=== PATIENT | male | born 1995 | race Caucasian/White ===

== ENCOUNTER 2017-12-14 17:11 | Emergency (ER) | payer OTHER ==
[~2017-12-14] VITALS: Ht 162.6 cm; Wt 79.4 kg
--- OUTSIDE RECORDS SUMMARY | 2017-12-14 17:17 | XMS REPORT ---
Author Author MARIO Cohen Organization [facility] Address [address] [address] Care Team Providers Care Driller Operator Name Role Phone MARIO Cohen Unavailable PROBLEMS Type Condition ICD9-CM Code OFS59-VT Code Onset Dates Condition Status SNOMED Code Problem ADD (attention deficit disorder) F90.0 Active 424478619 Problem Hypercholesterolemia with hyperglyceridemia E78.2 Active 319606490 Problem Schizoaffective disorder, bipolar type F25.0 Active 54369666 Problem Gastroesophageal reflux disease, esophagitis presence not specified K21.9 Active 461058015 Problem Social anxiety disorder F40.10 Active 57855122 Problem Bipolar disorder, current episode mixed, unspecified F31.60 Active 20517692 Problem Impulse disorder, unspecified F63.9 Active 87355046 Problem Attention deficit hyperactivity disorder (ADHD), predominantly inattentive type F90.0 Active 63901921 Problem Anxiety F41.9 Active 88798134 ALLERGIES Substance Reaction Event Type Date Status Lactose Unknown Drug Allergy May, Active Cipro hives Drug Allergy May, Active ENCOUNTERS Encounter Location Date Diagnosis [place] [id number] [place] [address] 15433- 5053 May, Gastroesophageal reflux disease, esophagitis presence not specified K21.9 [facility] [address] [place] [address] [id number] [place] [address] 00315- 7189 May, Schizoaffective disorder, bipolar type F25.0 [facility] [id number] [place] [address] 16547- 5855 May, Schizoaffective disorder, bipolar type F25.0 ; Impulse disorder, unspecified F63.9 ; Attention deficit hyperactivity disorder (ADHD), inattentive type, 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 and Social anxiety disorder F40.10 [facility] [address] [address] Feb, Schizoaffective disorder, bipolar type F25.0 ; Impulse disorder, unspecified F63.9 ; Attention deficit hyperactivity disorder (ADHD), inattentive type, mild F90.0 and Social anxiety disorder F40.10 [facility] [address] [address] Jan, Schizoaffective disorder, bipolar type F25.0 ; Impulse disorder, unspecified F63.9 ; Attention deficit hyperactivity disorder (ADHD), inattentive type, mild F90.0 and Social anxiety disorder F40.10 [facility] [id number] [place] [address] 90130- 1186 Jan, [facility] [id number] [place] [address] 37713- 9164 Dec, Schizoaffective disorder, bipolar type F25.0 [facility] [id number] [place] [address] 47691- 5082 Dec, Schizoaffective disorder, bipolar type F25.0 ; Impulse disorder, unspecified F63.9 ; Attention deficit hyperactivity disorder (ADHD), inattentive type, mild F90.0 and Social anxiety disorder F40.10 [facility] [address] [address] 78[address] Nov, Schizoaffective disorder, bipolar type F25.0 ; Impulse disorder, unspecified F63.9 ; Attention deficit hyperactivity disorder (ADHD), inattentive type, mild F90.0 and Social anxiety disorder F40.10 [facility] [address] [place] [address] 92974- 0139 Oct, [facility] [id number] [place] [address] 79676- 5457 08 Oct, 2016 Schizoaffective disorder, bipolar type F25.0 [facility] [address] [place] [address] 17429- 1755 Oct, 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 [facility] [address] [place] [address] 58864- 3773 Oct, Schizoaffective disorder, bipolar type F25.0 ; Impulse disorder, unspecified F63.9 ; Attention deficit hyperactivity disorder (ADHD), predominantly inattentive type F90.0 ; Anxiety F41.9 and Other jail ( current) drug therapy Z79.899 [facility] [id number] [place] [address] 41659- 8735 Sep, [facility] [id number] [place] [address] 12959- 9999 Jul, Hypercholesterolemia with hyperglyceridemia E78.2 [facility] [id number] [place] [address] 94434- 6076 Jul, Schizoaffective disorder, bipolar type F25.0 and Impulse disorder, unspecified F63.9 [facility] [id number] [place] [address] 45242- 1455 May, Hypercholesterolemia with hyperglyceridemia E78.2 ; Impulse disorder, unspecified F63.9 ; Bipolar disorder, current episode mixed, unspecified F31.60 ; Schizoaffective disorder, bipolar type F25.0 and ADD ( attention deficit disorder) F90.0 [facility] [address] [address]- 4866 Apr, [facility] [id number] [place] [address] 77771- 2471 Apr, [facility] [address], [place] [address]- 7381 Apr, Schizoaffective disorder, bipolar type F25.0 [facility] [address] [address]- 4462 Apr, [facility] [id number] [place] [address] 95045- 2737 Apr, [facility] [address] [address]- 9307 Apr, Schizoaffective disorder, bipolar type F25.0 [facility] [id number] [place] [address] 59817- 5661 Apr, Schizoaffective disorder, bipolar type F25.0 [facility] [id number] [place] [address] 00812- 6524 Dec, [facility] [id number] [place] [address] 94574- 2603 Dec, [facility] [id number] [place] [address] 94687- 0941 Dec, Schizoaffective disorder, bipolar type F25.0 and Other jail (current) drug therapy Z79.899 [facility] [id number] [place] [address] 31728- 6928 May, ADD (attention deficit disorder) F90.0 [facility] [id number] [place] [address] 86951- 6662 May, ADD (attention deficit disorder) F90.0 [facility] [id number] [place] [address] 65861- 8057 May, Schizoaffective disorder, bipolar type F25.0 and ADD ( attention deficit disorder) F90.0 [facility] [address] [address]- 4596 May, [facility] [address] [address]- 6926 Nov, [facility] [id number] [place] [address] 45173- 5595 Nov, Encounter for long-term (current) use of other medications Z79.899 [facility] [address] [address]- 9636 Nov, Schizoaffective disorder, bipolar type F25.0 ; Anxiety disorder, unspecified F41.9 ; Impulse disorder, unspecified F63.9 and Encounter for long-term (current) use of other medications Z79.899 [facility] [address] [address]- 3820 Sep, [facility] [address] [address]- 7206 Sep, [facility] [id number] [place] [address] 84510- 5519 Aug, [facility] [id number] [place] [address] 06275- 9237 Jul, [facility] [id number] [place] [address] 71186- 8625 June, [facility] [id number] [place] [address] 89414- 6247 May, [facility] [id number] [place] [address] 97722- 3348 May, [facility] [id number] [place] [address] 45280- 9048 Apr, [facility] [id number] [address]- 4179 Apr, [facility] [address], [place] [address]- 7396 Mar, [facility] [address] [address]- 7148 Mar, [facility] [address] [address]- 3690 Mar, [facility] [address] [address] 3380 Mar, [facility] [address] 7963 Mar, [facility] [place] [facility] [address] [id number] [place] [address]- 9823 Mar, [facility] [place] [facility] [address] [id number] [place] [address]- 2131 Feb, [facility] [place] [facility] [address] [id number] [place] [address]- 7050 Feb, [facility] [place] [facility] [address] [id number] [place] [address]- 7586 Feb, [facility] [place] [facility] [address] [id number] [place] [address]- 0073 Feb, [facility] [place] [facility] [address] [id number] [place] [address]- 1399 Jan, [facility] [place] [facility] [address] [id number] [place] 2140 Jan, [facility] [place] [facility] [address] [id number] [place] [address]- 6535 Jan, [facility] [place] [facility] [address] [id number] [place] [address]- 3508 Jan, [facility] [place] [facility] [address] [id number] [place] [address]- 5699 Jan, [facility] [place] [facility] [address] [id number] [place] 2277 Jan, [facility] [place] [facility] [address] [id number] [place] [address]- 7274 Dec, [facility] [place] [facility] [address] [id number] [place] [address]- 5420 Dec, [facility] [place] [facility] [address] [id number] [place] [address]- 3116 Dec, [facility] [place] [facility] [address] [id number] [place] [address]- 8097 Dec, [facility] [place] [facility] [address] [id number] [place] [address]- 6483 Nov, [facility] [place] [facility] [address] [id number] [place] [address]- 9467 Nov, [facility] [place] [facility] [address] [id number] [place] [address]- 4034 Nov, [facility] [place] [facility] [address] [id number] [place] [address]- 5458 Nov, [facility] [place] [facility] [address] [id number] [place] [address]- 7204 Nov, [facility] [place] [facility] [address] [id number] [place] [address]- 1575 Nov, [facility] [place] [facility] [address] [id number] [place] [address]- 2297 Nov, [facility] [place] [facility] [address] [id number] [place] [address]- 4257 Nov, [facility] [place] [facility] [address] [id number] [place] [address]- 1408 Oct, 2013 [facility] [place] [facility] [address] [id number] [place] [address]- 7151 Oct, [facility] [place] [facility] [address] [id number] [place] [address]- 4582 Oct, [facility] [place] [facility] [address] [id number], [place] [address]- 2158 Oct, [facility] [place] [facility] [address] [id number] [address]- 0920 Sep, [facility] [place] [facility] [address] [id number] [place] [address]- 5970 Sep, [facility] [place] [facility] [address] [id number], [place] [address]- 5511 Aug, [facility] [place] [facility] [address] [id number] [place] [address]- 5142 Aug, [facility] [place] [facility] [address] [id number] [place] [address]- 2584 Jul, [facility] [place] [facility] [address] [id number] [place] [address]- 3286 Jul, [facility] [place] [facility] [address] [id number] [place] [address]- 0607 Jul, [facility] [place] [facility] [address] [id number] [place] [address]- 2854 Jul, [facility] [place] [facility] [address] [id number] [place] [address]- 1651 Jul, [facility] [place] [facility] [address] [id number] [place] [address]- 5997 Jul, [facility] [place] [facility] [address] [id number] [place] [address]- 2447 Jul, [facility] [place] [facility] [address] [id number] [place] [address]- 0832 Jul, [facility] [place] [facility] [address] [id number] [place] [address]- 5787 June, [facility] [place] [facility] [address] [id number] [place] [address]- 9847 June, [facility] [place] [facility] [address] [id number] [place] [address]- 8974 May, [facility] [place] [facility] [address] [id number] [place] [address]- 4682 May, [facility] [place] [facility] [address] [id number] [place] [address]- 0678 May, [facility] [place] [facility] [address] [id number] [place] [address]- 0262 May, [facility] [place] [facility] [address] [id number] [place] [address]- 6453 May, [facility] [place] [facility] [address] [id number] [place] [address]- 7561 Apr, [facility] [place] [facility] [address] [id number] [place] [address]- 9784 Apr, [facility] [place] [facility] [address] [id number] [place] [address]- 2287 Mar, [facility] [place] [facility] [address] [id number] [place] [address]- 4115 Mar, [facility] [place] [facility] [address] [id number] [place] [address]- 2152 Feb, [facility] [place] [facility] [address] [id number] [place] [address]- 7078 Feb, [facility] [place] [facility] [address] [id number] [place] [address]- 2441 Jan, [facility] [place] [facility] [address] [id number] [place] [address]- 9508 Jan, [facility] [place] [facility] [address] [id number] [place] [address]- 1453 Jan, [facility] [place] [facility] [address] [id number] [place] [address]- 9858 Jan, [facility] [place] [facility] [address] [id number] [place] [address]- 0354 Jan, [facility] [place] [facility] [address] [facility] [id number] [place] [address]- 3001 Jan, [facility] [place] [facility] [address] [id number], [place] [address]- 6294 Jan, [facility] [place] [facility] [address] [id number] [place] [address]- 9672 Jan, [facility] [place] [facility] [address] [id number] [place] [address]- 1330 Jan, [facility] [place] [facility] [address] [id number], [place] [address]- 0119 18 Oct, 2012 [facility] [place] [facility] [address] [id number], [place] [address]- 7871 Jul, [facility] [address] [id number] [place] [address]- 7393 Jul, [facility] [address] [id number] [place] [address]- 1036 Jul, [facility] [address] [facility] [id number] [place] [address]- 9806 June, [facility] [address] [id number] [place] [address]- 3438 May, [facility] [address] [id number] [place] [address]- 5019 Apr, [facility] [address] [id number] [place] [address] 2546 Apr, [facility] [address] [facility] [id number] [place] [address]- 1400 Apr, [facility] [address] [facility] [id number] [place] [address]- 8553 Mar, [facility] [address] [facility] [id number] [place] [address]- 9376 Mar, [facility] [address] [facility] [id number] [place] [address]- 6376 Feb, [facility] [address] [facility] [id number] [place] [address]- 8814 Feb, [facility] [address] [id number] [place] [address]- 4736 Jan, [facility] [address] [id number] [place] [address]- 6486 Jan, [facility] [address] [facility] [id number] [place] [address] 2546 Jan, [facility] [address] [facility] [id number] [place] [address]- 7896 Jan, [facility] [place] [facility] [address] [id number] [place] [address]- 2058 Jan, [facility] [place] [facility] [address] [id number] [place] [address]- 0263 Dec, [facility] [place] [facility] [address] [id number] [place] [address]- 8870 Dec, [facility] [place] [facility] [address] [id number] [place] [address]- 4434 Nov, [facility] [place] [facility] [address] [id number] [place] [address]- 9810 Nov, [facility] [place] [facility] [address] [id number] [place] [address]- 9079 Nov, [facility] [place] [facility] [address] [id number] [place] [address]- 4315 Nov, [facility] [place] [facility] [address] [id number] [place] [address]- 2559 Nov, [facility] [place] [facility] [address] [id number] [place] 3928 Nov, [facility] [place] [facility] [address] [id number] [place] [address]- 4077 Oct, [facility] [place] [facility] [address] [id number] [place] [address]- 7991 Sep, [facility] [place] [facility] [address] [id number] [place] [address]- 5146 Sep, [facility] [place] [facility] [address] [id number] [place] [address]- 6050 Aug, [facility] [place] [facility] [address] [id number] [place] [address]- 5006 Aug, [facility] [place] [facility] [address] [id number] [place] [address]- 2546 Aug, [facility] [place] [facility] [address] [id number] [place] [address]- 2547 Jul, [facility] [address] [id number] [place] [address] 2546 June, [facility] [place] [facility] [address] [id number] [place] [address]- 7466 May, [facility] [place] [facility] [address] [id number] [place] [address]- 2546 May, [facility] [place] [facility] [address] [id number] [place] [address]- 2546 Apr, [facility] [place] [facility] [address] [id number] [place] [address]- 3394 Feb, [facility] [place] [facility] [address] [id number] [place] [address]- 4176 Feb, [facility] [place] [facility] [address] [id number] [place] [address]- 5306 26 Jan, 2011 [facility] [place] [facility] [address] [id number] [place] [address]- 0757 Jan, [facility] [place] [facility] [address] [id number] [place] [address]- 2575 19 Jan, 2011 [facility] [place] [facility] [address] [id number] [place] [address]- 5924 16 Jan, 2011 [facility] [place] [facility] [address] [id number], [place] [address]- 8146 16 Jan, 2011 [facility] [place] [facility] [address] [id number], [place] [address]- 2545 14 Jan, 2011 [facility] [place] [facility] [address] [id number] [place] [address]- 2546 14 Jan, 2011 [facility] [place] [facility] [address] [id number] [place] [address]- 2546 17 Dec, 2010 [facility] [place] [facility] [address] [id number] [place] [address]- 2546 17 Dec, 2010 [facility] [place] [facility] [address] [facility] [id number] [place] [address]30 Nov, [facility] [address] [facility] [id number] 3295 Jan, [facility] [address] [facility] [id number][place]- 8733 Dec, [facility] [address] [facility] [id number]- 6339 Dec, [facility] [address] [facility] [id number][place] 3977 Nov, IMMUNIZATIONS No Known Immunizations SOCIAL HISTORY Never Assessed REASON FOR VISIT acid reflux --tcstevepettSHAYY, Has had acid reflux for several years, but is worsening. Unable to eat anything without having a burning sensation and vomiting. PLAN OF CARE Activity Details Follow Up 3 Months Reason:gerd Pending Test STOOL (H. PYLORI) AG, EIA VITAL SIGNS Height 65 in 2017-06-11 Weight 208.0 lbs 2017-06-11 Temperature 98.3 degrees Fahrenheit 2017-06-11 Heart Rate 84 bpm 2017-06-11 Respiratory Rate 20 2017-06-11 BMI 34.61 kg/m2 2017-06-11 Blood pressure systolic 122 mmHg 2017-06-11 Blood pressure diastolic 80 mmHg 2017-06-11 MEDICATIONS Medication Instructions Dosage Frequency Start Date End Date Duration Status [place] Carbonate 300 MG Orally twice a day 2 capsules 12h Active Zoloft 50 mg Orally Once a day 1 tablet 24h Dec, Active [facility] Omeprazole 20 mg Orally twice a day 30 mins before food 1 tablet May, 30 day(s) Active Latuda 40 mg Orally at suppertime 1 tablet with food 90 days Active RESULTS No Results PROCEDURES Procedure Date Ordered Result Body Site HPYLORI, STOOL, EIA June 11, 2017 INSTRUCTIONS MEDICATIONS ADMINISTERED No Known Medications MEDICAL (GENERAL) HISTORY Type Description Date Medical History depression Medical History adhd Medical History bipolar Medical History hyperlipidemia Medical History Hx of heart valve dysfunction but says this has resolved Medical History lactose intolerant Hospitalization History [facility] x4, last incident at age 8
--- OUTSIDE RECORDS SUMMARY | 2017-12-14 17:18 | XMS REPORT ---
Author Author ALESHIA BERNAL [facility] Address [address] [place] [address] Care Team Providers Care [employer]oph[employer] Rep Name Role Phone ALESHIA BERNAL Unavailable PROBLEMS Type Condition ICD9-CM Code [id number] Code Onset Dates Condition Status SNOMED Code Problem Schizoaffective disorder, bipolar type F25.0 Active 18412855 Problem Anxiety F41.9 Active 39270104 Problem Attention deficit hyperactivity disorder (ADHD), predominantly inattentive type F90.0 Active 55003580 Problem Impulse disorder, unspecified F63.9 Active 99798291 Problem ADD (attention deficit disorder) F90.0 Active 589767025 Problem Hypercholesterolemia with hyperglyceridemia E78.2 Active 139666066 Problem Bipolar disorder, current episode mixed, unspecified F31.60 Active 36637707 ALLERGIES No Information SOCIAL HISTORY Never Assessed PLAN OF CARE VITAL SIGNS MEDICATIONS Unknown Medications RESULTS No Results PROCEDURES No Known procedures IMMUNIZATIONS No Known Immunizations MEDICAL (GENERAL) HISTORY Type Description Date Medical History depression Medical History adhd Medical History bipolar Medical History hyperlipidemia Medical History Hx of heart valve dysfunction but says this has resolved Hospitalization History [facility] x4, last incident at age 8
--- OUTSIDE RECORDS SUMMARY | 2017-12-14 17:18 | XMS REPORT ---
Author Author GRAY YFN [facility] Address [address] [place] [address] Care Team Providers Care Can Tender Name Role Phone GRAY, YFN Unavailable PROBLEMS Type Condition ICD9-CM Code HLF11-LE Code Onset Dates Condition Status SNOMED Code Problem ADD (attention deficit disorder) F90.0 Active 557320554 Problem Hypercholesterolemia with hyperglyceridemia E78.2 Active 764855844 Problem Schizoaffective disorder, bipolar type F25.0 Active 83323535 Problem Gastroesophageal reflux disease, esophagitis presence not specified K21.9 Active 575270831 Problem Social anxiety disorder F40.10 Active 10397595 Problem Bipolar disorder, current episode mixed, unspecified F31.60 Active 13406976 Problem Impulse disorder, unspecified F63.9 Active 65925090 Problem Attention deficit hyperactivity disorder (ADHD), predominantly inattentive type F90.0 Active 79155913 Problem Anxiety F41.9 Active 16135498 ALLERGIES Substance Reaction Event Type Date Status Lactose Unknown Drug Allergy May, Active Cipro hives Drug Allergy May, Active ENCOUNTERS Encounter Location Date Diagnosis [facility] [id number] [place] [address] 54945- 9744 May, Gastroesophageal reflux disease, esophagitis presence not specified K21.9 [facility] [id number] [place] [address] 94191- 3161 May, Schizoaffective disorder, bipolar type F25.0 [facility] [id number] [place] [address] 04946- 2218 May, Schizoaffective disorder, bipolar type F25.0 ; Impulse disorder, unspecified F63.9 ; Attention deficit hyperactivity disorder (ADHD), inattentive type, mild F90.0 and Social anxiety disorder F40.10 [facility] [id number], [place] [address]267 Feb, Schizoaffective disorder, bipolar type F25.0 ; Impulse disorder, unspecified F63.9 ; Attention deficit hyperactivity disorder (ADHD), inattentive type, mild F90.0 and Social anxiety disorder F40.10 [facility] [address] [place] [address] 39432- 9406 Jan, Schizoaffective disorder, bipolar type F25.0 ; Impulse disorder, unspecified F63.9 ; Attention deficit hyperactivity disorder (ADHD), inattentive type, mild F90.0 and Social anxiety disorder F40.10 [facility] [id number] [place] [address] 21217- 2223 Jan, [facility] [id number] [place] [address] 84255- 1128 Dec, Schizoaffective disorder, bipolar type F25.0 [facility] [id number] [place] [address] 97448- 8983 Dec, Schizoaffective disorder, bipolar type F25.0 ; Impulse disorder, unspecified F63.9 ; Attention deficit hyperactivity disorder (ADHD), inattentive type, mild F90.0 and Social anxiety disorder F40.10 [facility] [address], [place] [address] Nov, Schizoaffective disorder, bipolar type F25.0 ; Impulse disorder, unspecified F63.9 ; Attention deficit hyperactivity disorder (ADHD), inattentive type, mild F90.0 and Social anxiety disorder F40.10 [facility] [address] [address] 8314 Oct, [facility] [id number] [place] [address] 98138- 7095 Oct, Schizoaffective disorder, bipolar type F25.0 [facility] [address] [place] [address] 37129- 5318 Oct, Other [facility] (current) drug therapy Z79.899 [facility] [address] [place] [address] 35432- 3453 Oct, Schizoaffective disorder, bipolar type F25.0 ; Impulse disorder, unspecified F63.9 ; Attention deficit hyperactivity disorder (ADHD), predominantly inattentive type F90.0 ; Anxiety F41.9 and Other [facility] ( current) drug therapy Z79.899 [facility] [id number] [place] [address] 04873- 3738 Sep, [facility] [id number] [place] [address] 46745- 5907 Jul, Hypercholesterolemia with hyperglyceridemia E78.2 [facility] [id number] [place] [address] 01865- 9674 Jul, Schizoaffective disorder, bipolar type F25.0 and Impulse disorder, unspecified F63.9 [facility] [id number] [place] [address] 43208- 1725 May, Hypercholesterolemia with hyperglyceridemia E78.2 ; Impulse disorder, unspecified F63.9 ; Bipolar disorder, current episode mixed, unspecified F31.60 ; Schizoaffective disorder, bipolar type F25.0 and ADD ( attention deficit disorder) F90.0 [facility] [address] [address]- 0730 Apr, [facility] [id number] [place] [address] 18280- 9701 Apr, [facility] [id number] [place] [address] 53904- 6088 Apr, Schizoaffective disorder, bipolar type F25.0 [facility] [id number] [place] [address] 38463- 2341 Apr, [facility] [id number] [place] [address] 39645- 3221 Apr, [facility] [id number], [place] [address]- 5497 Apr, Schizoaffective disorder, bipolar type F25.0 [facility] [id number] [place] [address] 76555- 2035 Apr, Schizoaffective disorder, bipolar type F25.0 [facility] [address] [address]- 2740 Dec, [facility] [id number] [place] [address] 99571- 1500 Dec, [facility] [address] [place] [address] 26632- 8358 Dec, Schizoaffective disorder, bipolar type F25.0 and Other [facility] (current) drug therapy Z79.899 [facility] [id number] [place] [address] 44189- 9464 May, ADD (attention deficit disorder) F90.0 [facility] [id number] [place] [address] 12623- 9584 May, ADD (attention deficit disorder) F90.0 [facility] [id number] [place] [address] 35295- 1665 May, Schizoaffective disorder, bipolar type F25.0 and ADD ( attention deficit disorder) F90.0 [facility] [address] [address]- 5368 May, [facility] [address] [address]- 2590 Nov, [facility] [id number] [place] [address] 43533- 4137 Nov, Encounter for long-term (current) use of other medications Z79.899 [facility] [address] [address]- 0162 Nov, Schizoaffective disorder, bipolar type F25.0 ; Anxiety disorder, unspecified F41.9 ; Impulse disorder, unspecified F63.9 and Encounter for long-term (current) use of other medications Z79.899 [facility] [id number] [place] [address] 02325- 8565 Sep, [facility] [id number] [place] [address] 93365- 7601 Sep, [facility] [id number] [place] [address] 09894- 8944 Aug, [facility] [id number] [place] [address] 49922- 6371 Jul, [facility] [id number] [place] [address] 03329- 1410 June, [facility] [id number] [place] [address] 80618- 4046 May, [facility] [id number] [place] [address] 52345- 8339 May, [facility] [id number] [place] [address] 97320- 7414 Apr, [facility] [address] [place] [address] 42658- 5023 Apr, [facility] [address] [place] [address] 11046- 3283 Mar, [facility] [address] [place] [address] 10570- 9987 Mar, [facility] [address], [place] [address]- 4736 Mar, [facility] [id number], [place] [address]- 7518 Mar, [facility] [address], [place] [address]- 9623 Mar, [facility] [id number] [place] [address] 29470- 8885 Mar, [facility] [address] [id number] [place] [address]- 3615 Feb, [facility] [place] [facility] [address] [id number] [place] [address]- 5813 Feb, [facility] [place] [facility] [address] [facility] [id number] [place] [address]- 6782 Feb, [facility] [place] [facility] [address] [id number] [place] [address]- 9101 Feb, [facility] [place] [facility] [address] [id number] [place] 8788 Jan, [facility] [place] [facility] [address] [id number] [place] [address]- 6566 Jan, [facility] [place] [facility] [address] [facility] [id number] [place] [address]- 7618 Jan, [facility] [place] [facility] [address] [facility] [id number] [place] [address]- 9942 Jan, [facility] [place] [facility] [id number] [place] [address]- 4322 Jan, [facility] [place] [facility] [address] [facility] [id number] [place] [address]- 0023 Jan, [facility] [place] [facility] [address] [id number] [place] [address]- 3884 Dec, [facility] [place] [facility] [address] [id number] [address]- 1563 Dec, [facility] [place] [facility] [address] [id number] [place] [address]- 7366 Dec, [facility] [place] [facility] [address] [facility] [id number] [place] [address]- 1165 Dec, [facility] [place] [facility] [address] [facility] [id number] [place] [address]- 9907 Nov, [facility] [place] [facility] [address] [id number] [place] [address]- 8530 Nov, [facility] [place] [facility] [address] [id number] [place] 5325 Nov, [facility] [place] [facility] [address] [id number] [place] 6257 Nov, 2013 [facility] [place] [facility] [address] [id number] [place] [address]- 6571 Nov, [facility] [place] [facility] [address] [id number] [place] [address]- 2703 Nov, [facility] [place] [facility] [address] [id number] [place] [address]- 0226 Nov, [facility] [place] [facility] [address] [id number] [place] 0433 Nov, [facility] [place] [facility] [address] [id number] [place] [address]- 3123 Oct, 2013 [facility] [place] [facility] [address] [id number] [place] [address]- 6321 Oct, 2013 [facility] [place] [facility] [address] [id number] [place] [address]- 3683 Oct, 2013 [facility] [place] [facility] [address] [id number] [place] [address]- 3590 Oct, 2013 [facility] [place] [facility] [address] [id number] [place] [address]- 9582 Sep, [facility] [place] [facility] [address] [id number] [place] [address]- 8804 Sep, [facility] [place] [facility] [address] [id number] [place] [address]- 3701 Aug, [facility] [place] [facility] [address] [id number] [place] [address]- 0801 Aug, [facility] [place] [facility] [address] [id number] [place] [address]- 7061 Jul, [facility] [place] [facility] [address] [id number] [place] [address]- 9599 Jul, [facility] [place] [facility] [address] [id number] [place] [address]- 9055 Jul, [facility] [place] [facility] [address] [id number] [place] [address]- 9616 Jul, [facility] [place] [facility] [address] [id number] [place] [address]- 6600 Jul, [facility] [place] [facility] [address] [id number] [place] [address]- 9238 Jul, [facility] [place] [facility] [address] [id number] [place] [address]- 0826 Jul, [facility] [place] [facility] [address] [id number] [place] [address]- 0646 Jul, [facility] [place] [facility] [address] [id number] [place] [address]- 2149 June, [facility] [place] [facility] [address] [id number] [place] [address]- 7000 June, [facility] [place] [facility] [address] [id number] [place] [address]- 3916 May, [facility] [place] [facility] [address] [id number], [place] [address]- 8169 May, [facility] [place] [facility] [address] [id number], [place] [address]- 1520 May, [facility] [place] [facility] [address] [id number] [place] [address]- 7426 May, [facility] [place] [facility] [address] [id number] [place] [address]- 6235 May, [facility] [place] [facility] [address] [id number] [place] [address]- 9614 Apr, [facility] [place] [facility] [address] [id number] [place] [address]- 9874 Apr, [facility] [address] [id number] [place] [address]- 2636 Mar, [facility] [address] [id number] [place] [address]- 2976 Mar, [facility] [address] [id number] [place] [address]- 0653 Feb, [facility] [address] [id number] [place] [address]- 3604 Feb, [facility] [address] [id number] [place] [address]- 5002 Jan, [facility] [address] [id number] [place] [address]- 1867 Jan, [facility] [address] [id number] [place] [address]- 7455 Jan, [facility] [address] [id number] [place] [address]- 2428 Jan, [facility] [address] [facility] [id number] [place] [address]- 7936 Jan, [facility] [address] [facility] [id number] [place] [address]- 4807 Jan, [facility] [address] [id number] [place] [address]- 6454 Jan, [facility] [address] [id number] [place] [address]- 4066 Jan, [facility] [place] [facility] [address] [id number] [place] [address]- 3528 Jan, [facility] [address] [id number] [place] [address]- 2546 18 Oct, 2012 [facility] [address] [id number] [place] [address]- 8867 Jul, [facility] [address] [id number] [place] [address]- 9106 Jul, [facility] [place] [facility] [address] [id number] [place] [address]- 3056 Jul, [facility] [place] [facility] [address] [id number] [place] [address]- 9366 June, [facility] [place] [facility] [address] [id number] [place] [address]- 2546 May, [facility] [address] [id number] [place] [address]- 3966 Apr, [facility] [place] [facility] [address] [id number] [place] [address]- 8636 Apr, [facility] [address] [id number] [place] [address]- 2546 Apr, [facility] [address] [id number] [place] [address]- 8766 Mar, [facility] [place] [facility] [address] [id number] [place] [address]- 7136 Mar, [facility] [address] [facility] [id number] [place] [address]- 3886 Feb, [facility] [place] [facility] [address] [id number] [place] [address]- 2546 Feb, [facility] [place] [facility] [address] [id number], [place] [address]- 4676 Jan, [facility] [place] [facility] [address] [id number] [place] [address]- 8236 Jan, [facility] [place] [facility] [address] [id number] [place] [address]- 3136 Jan, [facility] [place] [facility] [address] [id number] [place] [address]- 2546 Jan, [facility] [place] [facility] [address] [id number] [place] [address]- 0366 Jan, [facility] [place] [facility] [address] [id number] [place] [address]- 6009 Dec, [facility] [place] [facility] [address] [id number] [place] [address]- 8023 Dec, [facility] [place] [facility] [address] [id number] [place] [address]- 2140 Nov, [facility] [place] [facility] [address] [id number] [place] [address]- 9499 Nov, [facility] [place] [facility] [address] [id number] [place] [address]- 4806 Nov, [facility] [place] [facility] [address] [id number] [place] [address]- 5140 Nov, [facility] [place] [facility] [address] [id number] [place] [address]- 4390 Nov, [facility] [place] [facility] [address] [id number] [place] [address]- 1773 Nov, [facility] [place] [facility] [address] [id number] [place] [address]- 2797 Oct, [facility] [place] [facility] [address] [id number] [place] [address]- 7256 Sep, [facility] [place] [facility] [address] [id number] [place] [address]- 6146 Sep, [facility] [place] [facility] [address] [id number] [place] [address]- 9038 Aug, [facility] [place] [facility] [address] [id number] [place] [address]- 9489 Aug, [facility] [place] [facility] [address] [id number] [place] [address]- 8665 Aug, [facility] [place] [facility] [address] [facility] [id number] [place] [address]- 7383 Jul, [facility] [place] [facility] [address] [id number] [place] [address]- 1940 June, [facility] [place] [facility] [address] [id number] [place] [address]- 8068 27 May, 2011 [facility] [place] [facility] [address] [id number] [place] [address]- 7086 May, [facility] [place] [facility] [address] [id number] [place] [address]- 6235 Apr, [facility] [place] [facility] [address] [id number] [place] [address]- 7112 31 Feb, 2011 [facility] [place] [facility] [address] [id number] [place] [address]- 2549 Feb, [facility] [place] [facility] [address] [id number] [place] [address]- 7668 26 Jan, 2011 [facility] [place] [facility] [address] [id number] [place] [address]- 6265 21 Jan, 2011 [facility] [place] [facility] [address] [id number] [place] [address]- 7348 19 Jan, 2011 [facility] [place] [facility] [address] [id number] [place] [address]- 2379 16 Jan, 2011 [facility] [place] [facility] [address] [id number] [place] 0109 16 Jan, 2011 [facility] [place] [facility] [address] [id number] [place] [address]- 3751 14 Jan, 2011 [facility] [place] [facility] [address] [id number] [place] [address]- 5146 14 Jan, 2011 [facility] [place] [facility] [address] [id number] [place] [address]- 0000 17 Dec, 2010 [facility] [place] [facility] [address] [id number] [place] [address]- 6616 17 Dec, 2010 [facility] [place] [facility] [address] [id number] [place] [address]- 5757 Nov, [facility] [address] [facility] [id number] [place] [address]- 0390 Jan, [facility] [address] [facility] [id number], [place] [address]- 5676 Dec, [facility] [address] [facility] [id number], [place] [address]- 7368 Dec, [facility] [address] [facility] [id number], [place] [address]- 1022 Nov, IMMUNIZATIONS No Known Immunizations SOCIAL HISTORY Never Assessed REASON FOR VISIT f/u wb-ma PLAN OF CARE Activity Details Follow Up 3 Months Reason: f/u VITAL SIGNS Height 65 in 2017-06-03 Weight 205 lbs 2017-06-03 Heart Rate 74 bpm 2017-06-03 Respiratory Rate 18 2017-06-03 BMI 34.11 kg/m2 2017-06-03 Blood pressure systolic 118 mmHg 2017-06-03 Blood pressure diastolic 78 mmHg 2017-06-03 MEDICATIONS Medication Instructions Dosage Frequency Start Date End Date Duration Status [place] Carbonate 300 MG Orally twice a day 2 capsules 12h Active Latuda 40 mg Orally at suppertime 1 tablet with food Active Zoloft 50 mg Orally Once a day 1 tablet 24h Dec, Active RESULTS No Results PROCEDURES No Known procedures INSTRUCTIONS MEDICATIONS ADMINISTERED No Known Medications MEDICAL (GENERAL) HISTORY Type Description Date Medical History depression Medical History adhd Medical History bipolar Medical History hyperlipidemia Medical History Hx of heart valve dysfunction but says this has resolved Medical History lactose intolerant Hospitalization History [facility] x4, last incident at age 8
--- OUTSIDE RECORDS SUMMARY | 2017-12-14 17:18 | XMS REPORT ---
Author Author BHAVANA DAWSON [facility] Address [address] [place] [address] Care Team Providers Care Anesthesiology Resident Name Role Phone DAWSON BATEMAN Unavailable PROBLEMS Type Condition ICD9-CM Code [id number] Code Onset Dates Condition Status SNOMED Code Problem Schizoaffective disorder, bipolar type F25.0 Active 98150143 Problem ADD (attention deficit disorder) F90.0 Active 516934975 Problem Social anxiety disorder F40.10 Active 01148080 Problem Attention deficit hyperactivity disorder (ADHD), predominantly inattentive type F90.0 Active 34639061 Problem Impulse disorder, unspecified F63.9 Active 50343451 Problem Hypercholesterolemia with hyperglyceridemia E78.2 Active 902464745 Problem Anxiety F41.9 Active 46531263 Problem Bipolar disorder, current episode mixed, unspecified F31.60 Active 11279807 ALLERGIES No Information SOCIAL HISTORY Never Assessed PLAN OF CARE VITAL SIGNS MEDICATIONS Unknown Medications RESULTS Name Result Date Reference Range CBC 2016-07-16 WBC 5.3 3.4-10.8 RBC 5.17 4.14-5.80 Hemoglobin 15.0 12.6-17.7 Hematocrit 44.9 37.5-51.0 MCV 87 79-97 MCH 29.0 26.6-33.0 MCHC 33.4 31.5-35.7 RDW 13.2 12.3-15.4 Platelets 245 150-379 Neutrophils 62 Lymphs 27 Monocytes 9 Eos 2 Basos 0 Immature Cells Neutrophils (Absolute) 3.3 1.4-7.0 Lymphs (Absolute) 1.4 0.7-3.1 Monocytes(Absolute) 0.5 0.1-0.9 Eos (Absolute) 0.1 0.0-0.4 Baso (Absolute) 0.0 0.0-0.2 Immature Granulocytes 0 Immature Grans (Abs) 0.0 0.0-0.1 NRBC Hematology Comments: LIPID PANEL 2016-07-16 Cholesterol, Total 194 100-199 Triglycerides 154 0-149 HDL Cholesterol 39 >39 VLDL Cholesterol Kush 31 5-40 LDL Cholesterol Calc 124 0-99 CMP 2016-07-16 Glucose, Serum 89 65-99 BUN 16 6-20 Creatinine, Serum 0.86 0.76-1.27 eGFR If NonAfricn Am 122 >59 eGFR If Africn Am 141 >59 BUN/Creatinine Ratio 19 9-20 Sodium, Serum 141 134-144 Potassium, Serum 4.7 3.5-5.2 Chloride, Serum 103 96-106 Carbon Dioxide, Total 24 18-29 Calcium, Serum 9.7 8.7-10.2 Protein, Total, Serum 6.9 6.0-8.5 Albumin, Serum 4.6 3.5-5.5 Globulin, Total 2.3 1.5-4.5 A/G Ratio 2.0 1.2-2.2 Bilirubin, Total 0.3 0.0-1.2 Alkaline Phosphatase, S 85 39-117 AST (SGOT) 22 0-40 ALT (SGPT) 21 0-44 PROCEDURES Procedure Date Ordered Result Body Site COMPLETE CBC W/AUTO DIFF WBC July 16, 2016 LIPID PANEL July 16, 2016 VENIPUNCT, ROUTINE* July 16, 2016 COMPREHEN METABOLIC PANEL July 16, 2016 IMMUNIZATIONS No Known Immunizations MEDICAL (GENERAL) HISTORY Type Description Date Medical History depression Medical History adhd Medical History bipolar Medical History hyperlipidemia Medical History Hx of heart valve dysfunction but says this has resolved Medical History lactose intolerant Hospitalization History [facility] x4, last incident at age 8
--- OUTSIDE RECORDS SUMMARY | 2017-12-14 17:18 | XMS REPORT ---
Author CHIN [facility] eClinicalWorks Address Unknown Phone Unavailable Care Team Providers Care Vaccine Key Customer Leader Name Role Phone CHIN CALZADA CP Unavailable Allergies, Adverse Reactions, Alerts Substance Reaction Event Type Cipro hives Drug Allergy Problems Problem Type Condition Code Onset Dates Condition Status Assessment Encounter for long-term (current) use of other medications Z79.899 Active Assessment Anxiety disorder, unspecified F41.9 Active Assessment Impulse disorder, unspecified F63.9 Active Problem Anxiety state, unspecified 300.00 Active Problem Unspecified psychosis 298.9 Active Problem Schizoaffective disorder, unspecified 295.70 Active Problem Bipolar I disorder, most recent episode (or current) mixed, unspecified 296.60 Active Assessment Schizoaffective disorder, bipolar type F25.0 Active Problem Impulse control disorder, unspecified 312.30 Active Problem Other dysfunctions of sleep stages or arousal from sleep 307.47 Active Medications Medication Code System Code Instructions Start Date End Date Status Dosage Vyvanse [facility] [address]-27 30 MG Orally Once a day qAM for ADHD Take for 30 days then start Vyvanse 40 mg June 26, 2014 1 capsule Rulo Carbonate [facility] [address]-19 300 MG Orally Once a day with dinner 3 capsules Seroquel XR [facility] [address]-70 200 MG Orally Once a day Nov 21, 2014 1 tablet in the evening Abilify [facility] [address]-13 10 MG Orally Once a day Apr 13, 2014 1 Tablet Procedures Procedure Coding System Code Date Office Visit, Est Pt., Level 4 CPT-4 80434 Nov 21, 2014 Vital Signs Date/Time: Nov 21, 2014 Temperature 98.6 F Weight 196.2 lbs Height 64 in BMI 33.67 Index Blood Pressure Diastolic 80 mmHg Blood Pressure Systolic 120 mmHg Cardiac Monitoring Heart Rate 64 bpm Results No Known Results Summary Purpose eClinicalWorks Submission
--- OUTSIDE RECORDS SUMMARY | 2017-12-14 17:18 | XMS REPORT ---
Author Author YFN CASTELLANO [facility] Address [address] [place] [address] Care Team Providers Care Supervisor Painting Department Name Role Phone GRAYYFN Unavailable PROBLEMS Type Condition ICD9-CM Code MIN70-DF Code Onset Dates Condition Status SNOMED Code Problem ADD (attention deficit disorder) F90.0 Active 390213390 Problem Hypercholesterolemia with hyperglyceridemia E78.2 Active 518754562 Problem Schizoaffective disorder, bipolar type F25.0 Active 67596165 Problem Gastroesophageal reflux disease, esophagitis presence not specified K21.9 Active 925766379 Problem Social anxiety disorder F40.10 Active 11772083 Problem Bipolar disorder, current episode mixed, unspecified F31.60 Active 00167765 Problem Impulse disorder, unspecified F63.9 Active 63777197 Problem Attention deficit hyperactivity disorder (ADHD), predominantly inattentive type F90.0 Active 84976107 Problem Anxiety F41.9 Active 36431498 ALLERGIES No Information ENCOUNTERS Encounter Location Date Diagnosis [facility] [id number] [place] [address]205- [address]123 May, Gastroesophageal reflux disease, esophagitis presence not specified K21.9 [facility] [address] [place] [address]6360- 2511 May, Schizoaffective disorder, bipolar type F25.0 [facility] [address] [place] [address] 08592- 1403 May, Schizoaffective disorder, bipolar type F25.0 ; Impulse disorder, unspecified F63.9 ; Attention deficit hyperactivity disorder (ADHD), inattentive type, 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 and Social anxiety disorder F40.10 [facility] [address] [place] [address] 97520- 8982 Feb, Schizoaffective disorder, bipolar type F25.0 ; Impulse disorder, unspecified F63.9 ; Attention deficit hyperactivity disorder (ADHD), inattentive type, mild F90.0 and Social anxiety disorder F40.10 [facility] [id number] [place] [address] 82203- 3660 Jan, Schizoaffective disorder, bipolar type F25.0 ; Impulse disorder, unspecified F63.9 ; Attention deficit hyperactivity disorder (ADHD), inattentive type, mild F90.0 and Social anxiety disorder F40.10 [place] [id number] [place] [address] 85097- 5296 Jan, [facility] [id number] [place] [address] 96679- 0133 Dec, Schizoaffective disorder, bipolar type F25.0 [place] [id number] [place] [address] 52752- 6117 Dec, Schizoaffective disorder, bipolar type F25.0 ; Impulse disorder, unspecified F63.9 ; Attention deficit hyperactivity disorder (ADHD), inattentive type, mild F90.0 and Social anxiety disorder F40.10 [place] [address] [address] Nov, Schizoaffective disorder, bipolar type F25.0 ; Impulse disorder, unspecified F63.9 ; Attention deficit hyperactivity disorder (ADHD), inattentive type, mild F90.0 and Social anxiety disorder F40.10 [facility] [address] [address] 69[address] Oct, [facility] [address] [place] [address] 93178- 0993 Oct, Schizoaffective disorder, bipolar type F25.0 [facility] [address] [place] [address] 22138- 9309 07 Oct, 2016 Other supervisor long goods (current) drug therapy Z79.899 [place] [id number] [place] [address] 69720- 6813 Oct, Schizoaffective disorder, bipolar type F25.0 ; Impulse disorder, unspecified F63.9 ; Attention deficit hyperactivity disorder (ADHD), predominantly inattentive type F90.0 ; Anxiety F41.9 and Other halfway ( current) drug therapy Z79.899 [facility] [id number] [place] [address] 26543- 3028 Sep, [facility] [id number] [place] [address] 14646- 5318 Jul, Hypercholesterolemia with hyperglyceridemia E78.2 [place] [id number] [place] [address] 34129- 6807 Jul, Schizoaffective disorder, bipolar type F25.0 and Impulse disorder, unspecified F63.9 [facility] [id number] [place] [address] 47345- 4150 May, Hypercholesterolemia with hyperglyceridemia E78.2 ; Impulse disorder, unspecified F63.9 ; Bipolar disorder, current episode mixed, unspecified F31.60 ; Schizoaffective disorder, bipolar type F25.0 and ADD ( attention deficit disorder) F90.0 [place] [address] [place] [address] 10477- 0092 Apr, [facility] [id number] [place] [address] 88341- 3340 Apr, [facility] [id number] [place] [address] 02154- 3321 Apr, Schizoaffective disorder, bipolar type F25.0 [facility] [id number] [place] [address] 50300- 5487 Apr, [facility] [id number] [place] [address] 44651- 3879 Apr, [facility] [id number] [place] [address] 44279- 9398 Apr, Schizoaffective disorder, bipolar type F25.0 [facility] [address] [address]- 0507 Apr, Schizoaffective disorder, bipolar type F25.0 [facility] [address] [address]- 9377 Dec, [facility] [id number] [place] [address] 50183- 3599 Dec, [facility] [id number] [place] [address] 38813- 4515 Dec, Schizoaffective disorder, bipolar type F25.0 and Other halfway (current) drug therapy Z79.899 [facility] [id number] [place] [address] 07420- 5703 May, ADD (attention deficit disorder) F90.0 [facility] [id number] [place] [address] 46525- 4459 May, ADD (attention deficit disorder) F90.0 [facility] [address] [place] [address] 04080- 6163 May, Schizoaffective disorder, bipolar type F25.0 and ADD ( attention deficit disorder) F90.0 [facility] [address] [address]- 5865 May, [facility] [address] [address]- 4734 Nov, [facility] [address] [address]- 5333 Nov, Encounter for long-term (current) use of other medications Z79.899 [facility] [address] [place] [address] 85291- 5622 Nov, Schizoaffective disorder, bipolar type F25.0 ; Anxiety disorder, unspecified F41.9 ; Impulse disorder, unspecified F63.9 and Encounter for long-term (current) use of other medications Z79.899 [facility] [address] [id number] [place] [address]- 1513 Sep, [facility] [place] [facility] [address] [id number] [place] [address]- 5655 Sep, [facility] [place] [facility] [address] [facility] [id number] [place] [address]- 2808 Aug, [facility] [place] [facility] [address] [id number] [address]- 7874 Jul, [facility] [place] [facility] [address] [id number] [place] [address]- 5898 June, [facility] [place] [facility] [address] [id number], [place] [address]- 3539 May, [facility] [place] [facility] [address] [place] [address]- 6879 May, [facility] [place] [facility] [id number] [address]- 7982 Apr, [facility] [place] [facility] [id number] [address]- 0877 Apr, [facility] [place] [facility] [id number] [address]- 4708 Mar, [facility] [place] [facility] [id number] [address]- 9850 Mar, [facility] [place] [facility] [address] [facility] [id number], [place] [address]- 7245 Mar, [facility] [place] [facility] [address] [id number], [place] [address]- 9345 Mar, [facility] [place] [facility] [address] [facility] [id number], [place] [address]- 4613 Mar, [facility] [place] [facility] [address] [facility] [id number], [place] [address]- 2510 Mar, [facility] [place] [facility] [address] [id number] [place] [address]- 6225 Feb, [facility] [address] [id number] [place] [address]- 8426 Feb, [facility] [place] [facility] [address] [id number] [place] [address]- 0479 Feb, [facility] [address] [id number] [place] [address]- 6121 Feb, [facility] [place] [facility] [address] [id number] [place] [address]- 3488 Jan, [facility] [address] [id number] [place] [address]- 6195 Jan, [facility] [place] [facility] [address] [id number] [place] [address]- 9622 Jan, [facility] [place] [facility] [address] [id number] [place] [address]- 9862 Jan, [facility] [address] [id number] [place] [address]- 7636 Jan, [facility] [place] [facility] [address] [id number] [place] [address]- 1224 Jan, [facility] [address] [id number] [place] [address]- 5333 Dec, [facility] [place] [facility] [address] [id number] [place] [address]- 3963 Dec, [facility] [place] [facility] [address] [id number] [place] [address]- 6475 Dec, [facility] [place] [facility] [address] [id number] [place] [address]- 4018 Dec, [facility] [place] [facility] [address] [id number] [place] [address]- 4208 Nov, [facility] [place] [facility] [address] [id number] [place] [address]- 0038 Nov, [facility] [place] [facility] [address] [id number] [place] [address]- 4458 Nov, [facility] [place] [facility] [address] [id number] [place] [address]- 0307 Nov, [facility] [place] [facility] [address] [id number] [place] 8072 Nov, [facility] [place] [facility] [address] [id number] [place] [address]- 8701 Nov, [facility] [place] [facility] [address] [id number] [place] [address]- 8658 Nov, [facility] [place] [facility] [address] [id number] [place] [address]- 0985 Nov, [facility] [place] [facility] [address] [id number] [place] [address]- 7657 Oct, [facility] [place] [facility] [address] [id number] [place] [address]- 5425 Oct, [facility] [place] [facility] [address] [id number] [place] [address]- 1563 Oct, [facility] [place] [facility] [address] [id number] [place] [address]- 2206 Oct, [facility] [place] [facility] [address] [id number] [place] [address]- 8412 Sep, [facility] [place] [facility] [address] [id number], [place] [address]- 7225 Sep, [facility] [place] [facility] [address] [id number] [place] [address]- 3791 Aug, [facility] [place] [facility] [address] [id number] [place] [address]- 5664 Aug, [facility] [place] [facility] [address] [id number] [place] [address]- 0825 Jul, [facility] [place] [facility] [address] [id number] [place] [address]- 4395 Jul, [facility] [place] [facility] [address] [id number] [place] [address]- 3247 Jul, [facility] [place] [facility] [address] [id number] [place] [address]- 7126 Jul, [facility] [place] [facility] [address] [id number] [place] [address]- 5390 Jul, [facility] [place] [facility] [address] [id number] [place] [address]- 7475 Jul, [facility] [place] [facility] [address] [id number] [place] [address]- 0613 Jul, [facility] [place] [facility] [address] [id number] [place] [address]- 8569 Jul, [facility] [place] [facility] [address] [id number] [place] [address]- 6966 June, [facility] [place] [facility] [address] [id number] [place] [address]- 8979 June, [facility] [place] [facility] [address] [id number] [place] [address]- 2725 May, [facility] [place] [facility] [address] [id number] [place] [address]- 5073 May, [facility] [place] [facility] [address] [id number] [place] [address]- 7038 May, [facility] [place] [facility] [address] [id number] [place] [address]- 0124 May, [facility] [place] [facility] [address] [id number] [place] [address]- 6925 May, [facility] [place] [facility] [address] [id number] [place] [address]- 8651 Apr, [facility] [place] [facility] [address] [id number] [place] [address]- 9280 Apr, [facility] [place] [facility] [address] [id number] [place] [address]- 0403 Mar, [facility] [address] [id number] [place] [address]- 7836 Mar, [facility] [place] [facility] [address] [id number] [place] [address]- 1304 Feb, [facility] [place] [facility] [address] [id number] [place] [address]- 6889 Feb, [facility] [place] [facility] [address] [id number] [place] [address]- 5660 Jan, [facility] [place] [facility] [address] [id number] [place] [address]- 6867 Jan, [facility] [address] [facility] [id number] [place] [address]- 2389 Jan, [facility] [place] [facility] [address] [id number] [place] [address]- 1707 Jan, [facility] [address] [id number] [place] [address]- 5615 Jan, [facility] [place] [facility] [address] [id number] [place] [address]- 9620 Jan, [facility] [place] [facility] [address] [id number] [place] [address]- 5656 Jan, [facility] [place] [facility] [address] [id number] [place] [address]- 2821 Jan, [facility] [place] [facility] [address] [id number] [place] [address]- 7793 Jan, [facility] [place] [facility] [address] [id number] [place] [address]- 9866 Oct, [facility] [place] [facility] [address] [id number] [place] [address]- 0846 Jul, [facility] [place] [facility] [address] [id number], [place] [address]- 0156 Jul, [facility] [address] [id number] [place] [address]- 5924 Jul, [facility] [address] [id number] [place] [address] 2546 June, [facility] [address] [id number] [place] [address] 2546 May, [facility] [place] [facility] [address] [id number], [place] [address] 2546 Apr, [facility] [address] [id number] [place] [address]- 9617 Apr, [facility] [address] [id number] [place] [address] 2546 Apr, [facility] [address] [id number] [place] [address]- 6366 Mar, [facility] [place] [facility] [address] [id number], [place] [address]- 4663 Mar, [facility] [address] [id number], [place] [address]- 6432 Feb, [facility] [address] [id number] [place] [address] 2546 Feb, [facility] [address] [id number], [place] [address]- 2142 Jan, [facility] [place] [facility] [address] [id number], [place] [address] 2546 Jan, [facility] [place] [facility] [address] [id number] [place] [address]- 2546 Jan, [facility] [place] [facility] [address] [id number], [place] [address] 2546 Jan, [facility] [place] [facility] [address] [id number] [place] [address]- 2546 Jan, [facility] [place] [facility] [address] [id number] [place] [address]- 7482 Dec, [facility] [place] [facility] [address] [id number] [place] [address]- 4033 Dec, [facility] [place] [facility] [address] [id number] [place] [address]- 5241 Nov, [facility] [place] [facility] [address] [id number] [place] [address]- 5495 Nov, [facility] [place] [facility] [address] [id number] [place] [address]- 4881 Nov, [facility] [place] [facility] [address] [id number] [place] [address]- 4136 Nov, [facility] [place] [facility] [address] [id number] [place]002 Nov, [facility] [place] [facility] [address] [id number] [place] [address]- 2416 Nov, [facility] [place] [facility] [address] [id number] [place] [address]- 2427 Oct, [facility] [place] [facility] [address] [id number] [place] [address]- 3464 Sep, [facility] [place] [facility] [address] [id number] [place] [address]- 7618 Sep, [facility] [place] [facility] [address] [id number] [place] [address]- 0864 Aug, [facility] [place] [facility] [address] [id number] [place] [address]- 2731 Aug, [facility] [place] [facility] [address] [id number] [place] [address]- 2267 Aug, [facility] [place] [facility] [address] [id number] [place] [address]- 2546 Jul, [facility] [place] [facility] [address] [id number] [place] [address]- 3056 June, [facility] [address] [id number] [place] [address]- 3215 May, [facility] [place] [facility] [address] [id number] [place] [address]- 1675 May, [facility] [place] [facility] [address] [id number] [place] [address]- 8526 14 Apr, 2011 [facility] [place] [facility] [address] [id number] [place] [address]- 8054 Feb, [facility] [place] [facility] [address] [id number] [place] [address]- 3423 Feb, [facility] [place] [facility] [address] [id number] [place] [address]- 1365 26 Jan, 2011 [facility] [place] [facility] [address] [id number] [place] [address]- 1341 21 Jan, 2011 [facility] [place] [facility] [address] [id number] [place] [address]- 8837 19 Jan, 2011 [facility] [place] [facility] [address] [id number] [place] [address]- 9101 16 Jan, 2011 [facility] [place] [facility] [address] [id number] [place] [address]- 5735 16 Jan, 2011 [facility] [place] [facility] [address] [id number] [place] [address] 14 Jan, 2011 [facility] [place] [facility] [address] [id number] [place] [address] 14 Jan, 2011 [facility] [place] [facility] [address] [id number] [place] [address] 17 Dec, 2010 [facility] [place] [facility] [address] [id number] [place] [address] 17 Dec, 2010 [facility] [place] [facility] [address] [id number] [place] [address] 18 Nov, 2010 [facility] [place] [facility] [address] [id number], [place] [address] Jan, [facility] [address] [facility] [id number], [place] [address] Dec, [facility] [address] [facility] [id number], [place] [address] Dec, [facility] [address] [facility] [id number][place] [address] Nov, IMMUNIZATIONS No Known Immunizations SOCIAL HISTORY Never Assessed REASON FOR VISIT PALS-latuda PLAN OF CARE VITAL SIGNS MEDICATIONS Medication Instructions Dosage Frequency Start Date End Date Duration Status Latuda 40 mg Orally at suppertime 1 tablet with food 90 days Active RESULTS No Results PROCEDURES No Known procedures INSTRUCTIONS MEDICATIONS ADMINISTERED No Known Medications MEDICAL (GENERAL) HISTORY Type Description Date Medical History depression Medical History adhd Medical History bipolar Medical History hyperlipidemia Medical History Hx of heart valve dysfunction but says this has resolved Medical History lactose intolerant Hospitalization History [facility] x4, last incident at age 8
--- OUTSIDE RECORDS SUMMARY | 2017-12-14 17:18 | XMS REPORT ---
Author Author ALESHIA BERNAL [facility] Address [address] [place] [address] Care Team Providers Care Engine Setter Name Role Phone ALESHIA BERNAL Unavailable PROBLEMS Type Condition ICD9-CM Code [id number] Code Onset Dates Condition Status SNOMED Code Problem Schizoaffective disorder, bipolar type F25.0 Active 81107357 Problem Anxiety F41.9 Active 54102202 Problem Attention deficit hyperactivity disorder (ADHD), predominantly inattentive type F90.0 Active 07873694 Problem Impulse disorder, unspecified F63.9 Active 65304811 Problem ADD (attention deficit disorder) F90.0 Active 889670633 Problem Hypercholesterolemia with hyperglyceridemia E78.2 Active 802342950 Problem Bipolar disorder, current episode mixed, unspecified F31.60 Active [id number] ALLERGIES No Information SOCIAL HISTORY Never Assessed PLAN OF CARE VITAL SIGNS MEDICATIONS Medication Instructions Dosage Frequency Start Date End Date Duration Status Latuda 40 mg Orally at suppertime 1 tablet with food Apr, 90 days Active RESULTS No Results PROCEDURES No Known procedures IMMUNIZATIONS No Known Immunizations MEDICAL (GENERAL) HISTORY Type Description Date Medical History depression Medical History adhd Medical History bipolar Medical History hyperlipidemia Medical History Hx of heart valve dysfunction but says this has resolved Hospitalization History [facility] x4, last incident at age 8
--- OUTSIDE RECORDS SUMMARY | 2017-12-14 17:19 | XMS REPORT ---
Author Author GRAY YFN [facility] Address [address] [place] [address] Care Team Providers Care Architectural Project Captain Name Role Phone GRAYYFN Unavailable PROBLEMS Type Condition ICD9-CM Code AAK90-MB Code Onset Dates Condition Status SNOMED Code Problem ADD (attention deficit disorder) F90.0 Active 086170044 Problem Hypercholesterolemia with hyperglyceridemia E78.2 Active 238540132 Problem Schizoaffective disorder, bipolar type F25.0 Active 99910823 Problem Gastroesophageal reflux disease, esophagitis presence not specified K21.9 Active 626303858 Problem Social anxiety disorder F40.10 Active 01129410 Problem Bipolar disorder, current episode mixed, unspecified F31.60 Active 96641332 Problem Impulse disorder, unspecified F63.9 Active 06980039 Problem Attention deficit hyperactivity disorder (ADHD), predominantly inattentive type F90.0 Active 61318601 Problem Anxiety F41.9 Active 91471097 ALLERGIES No Information ENCOUNTERS Encounter Location Date Diagnosis [facility] [id number] [place] [address] 57818- 4604 Aug, [facility] [id number] [place] [address] 36346- 7713 May, Gastroesophageal reflux disease, esophagitis presence not specified K21.9 [facility] [id number] [place] [address] 92443- 6317 May, Schizoaffective disorder, bipolar type F25.0 [facility] [id number] [place] [address] 24047- 8771 May, Schizoaffective disorder, bipolar type F25.0 ; Impulse disorder, unspecified F63.9 ; Attention deficit hyperactivity disorder (ADHD), inattentive type, 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 and Social anxiety disorder F40.10 [facility] [address] [address] Feb, Schizoaffective disorder, bipolar type F25.0 ; Impulse disorder, unspecified F63.9 ; Attention deficit hyperactivity disorder (ADHD), inattentive type, mild F90.0 and Social anxiety disorder F40.10 [facility] [id number] [place] [address] 11761- 3001 Jan, Schizoaffective disorder, bipolar type F25.0 ; Impulse disorder, unspecified F63.9 ; Attention deficit hyperactivity disorder (ADHD), inattentive type, mild F90.0 and Social anxiety disorder F40.10 [facility] [id number] [place] [address] 71795- 3154 Jan, [facility] [id number] [place] [address] 74330- 0059 Dec, Schizoaffective disorder, bipolar type F25.0 [facility] [id number] [place] [address] 01290- 4263 Dec, Schizoaffective disorder, bipolar type F25.0 ; Impulse disorder, unspecified F63.9 ; Attention deficit hyperactivity disorder (ADHD), inattentive type, 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 and Social anxiety disorder F40.10 [place] [address] [address] Nov, Schizoaffective disorder, bipolar type F25.0 ; Impulse disorder, unspecified F63.9 ; Attention deficit hyperactivity disorder (ADHD), inattentive type, mild F90.0 and Social anxiety disorder F40.10 [facility] [address] [address] 3529 Oct, [facility] [id number] [place] [address] 22891- 1810 08 Oct, 2016 Schizoaffective disorder, bipolar type F25.0 [facility] [id number] [place] [address] 73467- 0767 Oct, Other group home (current) drug therapy Z79.899 [facility] [address] [address] 8912 Oct, Schizoaffective disorder, bipolar type F25.0 ; Impulse disorder, unspecified F63.9 ; Attention deficit hyperactivity disorder (ADHD), predominantly inattentive type F90.0 ; Anxiety F41.9 and Other group home ( current) drug therapy Z79.899 [facility] [id number] [place] [address] 97419- 8608 Sep, [facility] [id number] [place] [address] 12447- 7540 Jul, Hypercholesterolemia with hyperglyceridemia E78.2 [facility] [id number] [place] [address] 03407- 7645 Jul, Schizoaffective disorder, bipolar type F25.0 and Impulse disorder, unspecified F63.9 [facility] [id number] [place] [address] 14146- 7390 May, Hypercholesterolemia with hyperglyceridemia E78.2 ; Impulse disorder, unspecified F63.9 ; Bipolar disorder, current episode mixed, unspecified F31.60 ; Schizoaffective disorder, bipolar type F25.0 and ADD ( attention deficit disorder) F90.0 [facility] [address] [address]- 5869 Apr, [facility] [id number] [place] [address] 27873- 8258 Apr, [facility] [address] [address] 5218 Apr, Schizoaffective disorder, bipolar type F25.0 [facility] [id number] [place] [address] 09905- 5900 Apr, [facility] [id number] [place] [address] 35890- 4885 Apr, [facility] [address] [address]- 3214 Apr, Schizoaffective disorder, bipolar type F25.0 [facility] [id number] [place] [address] 94634- 3559 Apr, Schizoaffective disorder, bipolar type F25.0 [facility] [id number] [place] [address] 32222- 3580 Dec, [facility] [id number] [place] [address] 60692- 7330 Dec, [facility] [id number] [place] [address] 71461- 5762 Dec, Schizoaffective disorder, bipolar type F25.0 and Other group home (current) drug therapy Z79.899 [facility] [id number] [place] [address] 29341- 2070 May, ADD (attention deficit disorder) F90.0 [facility] [id number] [place] [address] 23312- 1886 May, ADD (attention deficit disorder) F90.0 [facility] [id number] [place] [address] 32798- 2958 May, Schizoaffective disorder, bipolar type F25.0 and ADD ( attention deficit disorder) F90.0 [facility] [address] [address]- 9082 May, [facility] [address] [address]- 8485 Nov, [facility] [id number] [place] [address] 70024- 2596 Nov, Encounter for long-term (current) use of other medications Z79.899 [facility] [address] [address]- 9980 Nov, Schizoaffective disorder, bipolar type F25.0 ; Anxiety disorder, unspecified F41.9 ; Impulse disorder, unspecified F63.9 and Encounter for long-term (current) use of other medications Z79.899 [facility] [id number] [place] [address] 57770- 3295 Sep, [facility] [address] [address]- 9958 Sep, [facility] [id number] [place] [address] 24722- 9790 Aug, [facility] [id number] [place] [address] 22275- 8266 Jul, [facility] [id number] [place] [address] 03724- 4849 June, [facility] [id number] [place] [address] 60498- 3471 May, [facility] [id number] [place] [address] 21971- 0482 May, [facility] [address] [address]- 8879 Apr, [facility] [id number] [place] [address] 80572- 7926 Apr, [facility] [address] [address]- 6425 Mar, [facility] [address] [address]- 5914 Mar, [facility] [address] [address]- 4274 Mar, [facility] [address] [address]- 9119 Mar, [facility] [address] [address]- 2288 Mar, [facility] [address] [address]- 4986 Mar, [facility] [address] [id number] [place] [address]- 6303 Feb, [facility] [place] [facility] [address] [id number] [place] [address] 2546 Feb, [facility] [address] [id number] [place] [address]- 0235 Feb, [facility] [place] [facility] [address] [id number] [place] [address]- 7935 Feb, [facility] [address] [id number] [place] [address]- 1716 Jan, [facility] [address] [id number] [place] [address]- 5945 Jan, [facility] [place] [facility] [address] [id number] [place] [address]- 1041 Jan, [facility] [address] [id number] [place] [address]- 1518 Jan, [facility] [place] [facility] [address] [id number] [place] [address]- 2772 Jan, [facility] [address] [id number] [place] [address]- 0349 Jan, [facility] [place] [facility] [address] [id number] [place] [address]- 7174 Dec, [facility] [place] [facility] [address] [id number] [place] [address]- 2278 Dec, [facility] [place] [facility] [address] [id number] [place] [address]- 2578 Dec, [facility] [place] [facility] [address] [id number] [place] [address]- 2546 Dec, [facility] [place] [facility] [address] [id number] [place] [address]- 0905 Nov, [facility] [place] [facility] [address] [id number] [place] [address]- 6387 Nov, [facility] [place] [facility] [address] [id number] [place] [address]- 5326 Nov, [facility] [place] [facility] [address] [id number] [place] 0509 Nov, [facility] [place] [facility] [address] [id number] [place] [address]- 1050 Nov, [facility] [place] [facility] [address] [id number] [place] 1629 Nov, [facility] [place] [facility] [address] [id number] [place] [address]- 6173 Nov, [facility] [place] [facility] [address] [id number] [place] [address]- 0552 Nov, [facility] [place] [facility] [address] [id number] [place] [address]- 5722 Oct, 2013 [facility] [place] [facility] [address] [id number] [place] [address]- 0761 Oct, 2013 [facility] [place] [facility] [address] [id number] [place] [address]- 8247 Oct, 2013 [facility] [place] [facility] [address] [id number] [place] [address]- 0611 Oct, [facility] [place] [facility] [address] [id number] [address]- 7739 Sep, [facility] [place] [facility] [address] [id number] [place] [address]- 7078 Sep, [facility] [place] [facility] [address] [id number] [place] [address]- 2527 Aug, [facility] [place] [facility] [address] [id number] [place] [address]- 7462 Aug, [facility] [place] [facility] [address] [id number] [place] [address]- 9342 Jul, [facility] [place] [facility] [address] [id number] [place] [address]- 8415 Jul, [facility] [place] [facility] [address] [id number] [place] [address]- 7798 Jul, [facility] [place] [facility] [address] [id number] [place] [address]- 0533 Jul, [facility] [place] [facility] [address] [id number] [place] [address]- 7444 Jul, [facility] [place] [facility] [address] [id number] [place] [address]- 9029 Jul, [facility] [place] [facility] [address] [id number] [place] [address]- 9052 Jul, [facility] [place] [facility] [address] [id number] [place] [address]- 8132 Jul, [facility] [place] [facility] [address] [id number] [place] [address]- 7801 June, [facility] [place] [facility] [address] [id number] [place] [address]- 3253 June, [facility] [place] [facility] [address] [id number] [place] [address]- 1344 May, [facility] [place] [facility] [address] [id number] [place] [address]- 7827 May, [facility] [place] [facility] [address] [id number] [place] [address]- 7554 May, [facility] [place] [facility] [address] [id number] [place] [address]- 2715 May, [facility] [place] [facility] [address] [id number] [place] [address]- 2790 May, [facility] [place] [facility] [address] [id number] [place] [address]- 8033 Apr, [facility] [place] [facility] [address] [id number] [place] [address]- 5901 Apr, [facility] [place] [facility] [address] [id number] [place] [address]- 2728 Mar, [facility] [place] [facility] [address] [id number] [place] [address]- 5612 Mar, [facility] [place] [facility] [address] [id number] [place] [address]- 8903 Feb, [facility] [place] [facility] [address] [id number] [place] [address]- 9287 Feb, [facility] [place] [facility] [address] [id number] [place] [address]- 4118 Jan, [facility] [place] [facility] [address] [id number] [place] [address]- 8517 Jan, [facility] [place] [facility] [address] [id number] [place] [address]- 1198 Jan, [facility] [place] [facility] [address] [id number] [place] [address]- 8243 Jan, [facility] [place] [facility] [address] [id number] [place] [address]- 5808 Jan, [facility] [place] [facility] [address] [id number] [place] [address]- 6182 Jan, [facility] [place] [facility] [address] [id number] [place] [address]- 8720 Jan, [facility] [place] [facility] [address] [id number] [place] [address]- 9278 Jan, [facility] [place] [facility] [address] [id number] [place] [address]- 4699 Jan, [facility] [place] [facility] [address] [id number] [place] [address]- 9512 18 Oct, 2012 [facility] [place] [facility] [address] [id number] [place] [address]- 1106 Jul, [facility] [address] [id number] [place] [address]- 1718 Jul, [facility] [place] [facility] [address] [id number] [place] [address]- 1746 Jul, [facility] [address] [id number] [place] [address]- 5496 June, [facility] [place] [facility] [address] [id number] [place] [address]- 4991 May, [facility] [address] [id number] [place] [address]- 5562 Apr, [facility] [place] [facility] [address] [id number] [place] [address]- 4296 Apr, [facility] [address] [id number] [place] [address]- 2189 Apr, [facility] [place] [facility] [address] [id number] [place] [address]- 1800 Mar, [facility] [address] [id number] [place] [address]- 3001 Mar, [facility] [address] [id number] [place] [address]- 7146 Feb, [facility] [address] [id number] [place] [address]- 8495 Feb, [facility] [place] [facility] [address] [id number] [place] [address]- 0080 Jan, [facility] [place] [facility] [address] [id number] [place] [address]- 3060 Jan, [facility] [place] [facility] [address] [id number] [place] [address]- 5396 Jan, [facility] [place] [facility] [address] [id number] [place] [address]- 0266 Jan, [facility] [place] [facility] [address] [id number] [place] [address]- 2546 Jan, [facility] [place] [facility] [address] [id number] [place] [address]- 5330 Dec, [facility] [place] [facility] [address] [id number] [place] [address] 2546 Dec, [facility] [place] [facility] [address] [id number] [place] [address]- 2757 Nov, [facility] [place] [facility] [address] [id number] [place] [address]- 0533 Nov, [facility] [place] [facility] [address] [id number] [place] [address]- 1191 Nov, [facility] [place] [facility] [address] [id number] [place] [address]- 1667 Nov, [facility] [place] [facility] [address] [id number] [place] [address]- 4151 Nov, [facility] [place] [facility] [address] [id number] [place] [address]- 8235 Nov, [facility] [place] [facility] [address] [id number] [place] [address]- 6600 Oct, [facility] [place] [facility] [address] [id number] [place] [address]- 0923 Sep, [facility] [place] [facility] [address] [id number] [place] [address]- 7148 Sep, [facility] [place] [facility] [address] [id number] [place] [address]- 0398 Aug, [facility] [place] [facility] [address] [id number] [place] [address]- 2546 Aug, [facility] [place] [facility] [address] [id number] [place] [address]- 2546 Aug, [facility] [place] [facility] [address] [id number] [place] [address] 2547 Jul, [facility] [place] [facility] [address] [id number] [place] [address]- 1157 June, [facility] [place] [facility] [address] [id number] [place] [address]- 8366 May, [facility] [place] [facility] [address] [id number] [place] [address]- 4126 May, [facility] [place] [facility] [address] [id number] [place] [address]- 9821 Apr, [facility] [place] [facility] [address] [id number] [place] [address]- 3236 Feb, [facility] [place] [facility] [address] [id number] [place] [address]- 2969 Feb, [facility] [place] [facility] [address] [id number] [place] [address]- 6267 26 Jan, 2011 [facility] [place] [facility] [address] [id number] [place] [address]- 5617 Jan, [facility] [place] [facility] [address] [id number] [place] [address]- 6798 19 Jan, 2011 [facility] [place] [facility] [address] [id number] [place] [address]- 4325 16 Jan, 2011 [facility] [place] [facility] [address] [id number] [place] [address]- 6194 16 Jan, 2011 [facility] [place] [facility] [address] [id number] [place] [address]- 6085 14 Jan, 2011 [facility] [place] [facility] [address] [id number] [place] [address]- 8357 14 Jan, 2011 [facility] [place] [facility] [address] [id number] [place] [address]- 6676 17 Dec, 2010 [facility] [place] [facility] [address] [id number] [place] [address]- 8076 17 Dec, 2010 [facility] [place] [facility] [address] [id number] [place] [address]- 8774 Nov, [facility] [id number] 2514 Jan, [facility] [id number] [address]- 6274 Dec, [facility] [id number] [address]- 7194 Dec, [facility] [id number] [address]- 6305 Nov, IMMUNIZATIONS No Known Immunizations SOCIAL HISTORY Never Assessed REASON FOR VISIT Waiting for call back PLAN OF CARE VITAL SIGNS MEDICATIONS Unknown Medications RESULTS No Results PROCEDURES No Known procedures INSTRUCTIONS MEDICATIONS ADMINISTERED No Known Medications MEDICAL (GENERAL) HISTORY Type Description Date Medical History depression Medical History adhd Medical History bipolar Medical History hyperlipidemia Medical History Hx of heart valve dysfunction but says this has resolved Medical History lactose intolerant Hospitalization History [facility], last incident at age 8
--- OUTSIDE RECORDS SUMMARY | 2017-12-14 17:19 | XMS REPORT ---
Author Author ALESHIA BERNAL [facility] e[employer] Address Unknown Phone Unavailable Care Team Providers Care Gas Tender Name Role Phone ALESHIA BERNAL CP Unavailable Allergies No Known Allergies Problems Problem Type Condition Code Onset Dates Condition Status Problem ADD (attention deficit disorder) F90.0 Active Problem Impulse control disorder, unspecified 312.30 Active Problem Schizoaffective disorder, bipolar type F25.0 Active Problem Bipolar I disorder, most recent episode (or current) mixed, unspecified 296.60 Active Medications No Known Medications Results No Known Results Summary Purpose eClinicalWorks Submission
--- OUTSIDE RECORDS SUMMARY | 2017-12-14 17:19 | XMS REPORT ---
Author Author [facility] Address [address] [place] [address] Care Team Providers Care Release Of Information Specialist Name Role Phone GRAYYFN Unavailable PROBLEMS Type Condition ICD9-CM Code SZL91-MC Code Onset Dates Condition Status SNOMED Code Problem Schizoaffective disorder, bipolar type F25.0 Active 64374884 Problem ADD (attention deficit disorder) F90.0 Active 755102292 Problem Social anxiety disorder F40.10 Active 43239528 Problem Attention deficit hyperactivity disorder (ADHD), predominantly inattentive type F90.0 Active 16701605 Problem Impulse disorder, unspecified F63.9 Active 61600313 Problem Hypercholesterolemia with hyperglyceridemia E78.2 Active 388391408 Problem Anxiety F41.9 Active 25859071 Problem Bipolar disorder, current episode mixed, unspecified F31.60 Active 95917175 ALLERGIES Substance Reaction Event Type Date Status Cipro hives Drug Allergy Oct, Active ENCOUNTERS Encounter Location Date Diagnosis [facility], [place] [id number] [place] [address] 50677- 0914 Aug, [facility], [place] [id number] [place] [address] 19839- 4305 May, [facility], [place] [id number] [place] [address] 90454- 9879 May, Schizoaffective disorder, bipolar type F25.0 ; Impulse disorder, unspecified F63.9 ; Attention deficit hyperactivity disorder (ADHD), inattentive type, mild F90.0 and Social anxiety disorder F40.10 [facility], [place] [address] [address] 7010 Feb, Schizoaffective disorder, bipolar type F25.0 ; Impulse disorder, unspecified F63.9 ; Attention deficit hyperactivity disorder (ADHD), inattentive type, mild F90.0 and Social anxiety disorder F40.10 [facility], [place] [address] [address] 1778 Jan, Schizoaffective disorder, bipolar type F25.0 ; Impulse disorder, unspecified F63.9 ; Attention deficit hyperactivity disorder (ADHD), inattentive type, mild F90.0 and Social anxiety disorder F40.10 [facility], [place] [id number] [place] [address] 25665- 9883 Jan, [facility], [place] [id number] [place] [address] 43023- 6165 Dec, Schizoaffective disorder, bipolar type F25.0 [facility], [place] [id number] [place] [address] 85369- 2373 Dec, Schizoaffective disorder, bipolar type F25.0 ; Impulse disorder, unspecified F63.9 ; Attention deficit hyperactivity disorder (ADHD), inattentive type, mild F90.0 and Social anxiety disorder F40.10 [place] [id number] [place] [address] 55631- 0990 Nov, Schizoaffective disorder, bipolar type F25.0 ; Impulse disorder, unspecified F63.9 ; Attention deficit hyperactivity disorder (ADHD), inattentive type, mild F90.0 and Social anxiety disorder F40.10 [facility], [place] [address] [address]- 0192 Oct, [facility], [place] [id number] [place] [address] 84386- 5072 Oct, Schizoaffective disorder, bipolar type F25.0 [facility], [place] [id number] [place] [address] 49786- 5357 Oct, 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 [facility], [place] [id number] [place] [address] 28822- 2414 Oct, Schizoaffective disorder, bipolar type F25.0 ; Impulse disorder, unspecified F63.9 ; Attention deficit hyperactivity disorder (ADHD), predominantly inattentive type F90.0 ; Anxiety F41.9 and Other group home ( current) drug therapy Z79.899 [facility], [place] [id number] [place] [address] 09852- 6769 Sep, [facility], [place] [id number] [place] [address] 35626- 4848 Jul, Hypercholesterolemia with hyperglyceridemia E78.2 [facility], [place] [id number] [place] [address] 11589- 8629 Jul, Schizoaffective disorder, bipolar type F25.0 and Impulse disorder, unspecified F63.9 [facility], [place] [id number] [place] [address] 17498- 2652 May, Hypercholesterolemia with hyperglyceridemia E78.2 ; Impulse disorder, unspecified F63.9 ; Bipolar disorder, current episode mixed, unspecified F31.60 ; Schizoaffective disorder, bipolar type F25.0 and ADD ( attention deficit disorder) F90.0 [place] [id number] [place] [address] 05041- 1969 Apr, [facility], [place] [id number] [place] [address] 20253- 9702 Apr, [facility], [place] [id number] [place] [address] 10226- 6657 Apr, Schizoaffective disorder, bipolar type F25.0 [facility], [place] [id number] [place] [address] 84921- 9041 Apr, [facility], [place] [id number] [place] [address] 15644- 4228 Apr, [facility], [place] [id number] [place] [address] 32683- 6819 Apr, Schizoaffective disorder, bipolar type F25.0 [facility], [place] [id number] [place] [address] 05181- 0840 Apr, Schizoaffective disorder, bipolar type F25.0 [facility], [place] [id number] [place] [address] 97735- 3200 Dec, [facility], [place] [id number] [place] [address] 20524- 8640 Dec, [facility], [place] [id number] [place] [address] 02076- 1790 Dec, Schizoaffective disorder, bipolar type F25.0 and Other group home (current) drug therapy Z79.899 [facility], [place] [id number] [place] [address] 88887- 2517 May, ADD (attention deficit disorder) F90.0 [place] [id number] [place] [address] 33785- 3008 May, ADD (attention deficit disorder) F90.0 [facility], [place] [id number] [place] [address] 35125- 6877 May, Schizoaffective disorder, bipolar type F25.0 and ADD ( attention deficit disorder) F90.0 [facility], [place] [id number] [place] [address] 49315- 8967 May, [facility], [place] [id number] [place] [address] 34768- 9673 Nov, [facility], [place] [id number] [place] [address] 36359- 2199 Nov, Encounter for long-term (current) use of other medications Z79.899 [facility], [place] [id number] [place] [address] 28137- 4430 Nov, Schizoaffective disorder, bipolar type F25.0 ; Anxiety disorder, unspecified F41.9 ; Impulse disorder, unspecified F63.9 and Encounter for long-term (current) use of other medications Z79.899 [facility], [place] [id number] [place] [address] 03621- 4521 Sep, [facility] [place] [facility] [address] [id number] [place] 6841 Sep, [facility] [place] [facility] [address] [id number] [place] [address]- 1661 Aug, [facility] [place] [facility] [address] [facility] [id number] [place] [address]- 8330 Jul, [facility] [place] [facility] [address] [facility] [id number] [place] [address]- 3194 June, [facility] [place] [facility] [address] [id number] [place] [address]- 9766 May, [facility] [place] [facility] [address] [facility] [id number] [place] [address]- 1814 May, [facility] [place] [facility] [address] [facility] [id number] [place] [address]- 7240 Apr, [facility] [place] [facility] [address] [facility] [id number], [place] [address]- 2087 Apr, [facility] [place] [facility] [address] [facility] [id number] [place] [address]- 0856 Mar, [facility] [place] [facility] [address] [facility] [id number] [place] [address]- 8916 Mar, [facility] [place] [facility] [address] [facility] [id number], [place] [address]- 3700 Mar, [facility] [place] [facility] [address] [facility] [id number] [address]- 0478 Mar, [facility] [place] [facility] [address] [facility] [id number] [place] [address]- 4062 Mar, [facility] [place] [facility] [address] [facility] [id number] [place] 3715 Mar, [facility] [place] [facility] [address] [facility] [id number] [place] [address]- 8956 Feb, [facility] [place] [facility] [address] [id number] [place] [address]- 7633 Feb, [facility] [place] [facility] [address] [id number] [place] [address]- 4572 Feb, [facility] [place] [facility] [address] [id number] [place] [address]- 7622 Feb, [facility] [place] [facility] [address] [id number] [place] [address]- 7124 Jan, [facility] [place] [facility] [address] [id number] [place] 7968 Jan, [facility] [place] [facility] [address] [id number] [place] [address]- 7488 Jan, [facility] [place] [facility] [address] [id number] [place] 9512 Jan, [facility] [place] [facility] [address] [id number] [place] [address]- 2205 Jan, [facility] [place] [facility] [address] [id number] [place] 9211 Jan, [facility] [place] [facility] [address] [id number] [place] [address]- 6215 Dec, [facility] [place] [facility] [address] [id number] [place] [address]- 3730 Dec, [facility] [place] [facility] [address] [id number] [place] [address]- 6657 Dec, [facility] [place] [facility] [address] [id number] [place] [address]- 0522 Dec, [facility] [place] [facility] [address] [id number] [place] [address]- 4806 Nov, [facility] [place] [facility] [address] [id number] [place] [address]- 1349 Nov, [facility] [place] [facility] [address] [id number] [place] [address]- 3228 Nov, [facility] [place] [facility] [address] [id number] [place] [address]- 8057 Nov, [facility] [place] [facility] [address] [id number] [place] [address]- 2699 Nov, [facility] [place] [facility] [address] [id number] [place] [address]- 8443 Nov, [facility] [place] [facility] [address] [id number] [place] [address]- 9747 Nov, [facility] [place] [facility] [address] [id number] [place] [address]- 6634 Nov, [facility] [place] [facility] [address] [id number] [place] [address]- 4864 Oct, [facility] [place] [facility] [address] [id number] [place] [address]- 3205 Oct, [facility] [place] [facility] [address] [id number] [place] [address]- 5961 Oct, [facility] [place] [facility] [address] [id number] [place] [address]- 3782 Oct, [facility] [place] [facility] [address] [id number] [place] [address]- 3830 Sep, [facility] [place] [facility] [address] [id number], [place] [address]- 0239 Sep, [facility] [place] [facility] [address] [id number], [place] [address]- 4929 Aug, [facility] [place] [facility] [address] [id number] [place] [address]- 6425 Aug, [facility] [place] [facility] [address] [id number] [place] [address]- 6957 Jul, [facility] [place] [facility] [address] [id number] [place] [address]- 9437 Jul, [facility] [place] [facility] [address] [id number] [place] [address]- 8863 Jul, [facility] [place] [facility] [address] [id number] [place] [address]- 6431 Jul, [facility] [place] [facility] [address] [id number] [place] [address]- 8607 Jul, [facility] [place] [facility] [address] [id number] [place] [address]- 0925 Jul, [facility] [place] [facility] [address] [id number] [place] [address]- 7320 Jul, [facility] [place] [facility] [address] [id number] [place] [address]- 4935 Jul, [facility] [place] [facility] [address] [id number] [place] [address]- 1880 June, [facility] [place] [facility] [address] [id number] [place] [address]- 9828 June, [facility] [place] [facility] [address] [id number] [place] [address]- 2626 May, [facility] [place] [facility] [address] [id number] [place] [address]- 6412 May, [facility] [place] [facility] [address] [facility] [id number] [place] [address]- 7874 May, [facility] [place] [facility] [address] [id number] [place] [address]- 4110 May, [facility] [place] [facility] [address] [id number] [place] [address]- 2024 May, [facility] [place] [facility] [address] [id number] [place] [address]- 2020 Apr, [facility] [place] [facility] [address] [id number] [place] [address]- 7706 Apr, [facility] [place] [facility] [address] [id number] [place] [address]- 5903 Mar, [facility] [place] [facility] [address] [id number] [place] [address]- 0235 Mar, [facility] [address] [id number] [place] [address]- 8931 Feb, [facility] [address] [id number] [place] [address]- 2710 Feb, [facility] [address] [id number] [place] [address]- 6575 Jan, [facility] [address] [id number] [place] [address]- 0139 Jan, [facility] [address] [id number] [place] [address]- 2161 Jan, [facility] [address] [id number] [place] [address]- 7659 Jan, [facility] [address] [id number] [place] [address]- 3045 Jan, [facility] [place] [facility] [address] [id number] [place] [address]- 4069 Jan, [facility] [address] [id number] [place] 5630 Jan, [facility] [place] [facility] [address] [id number] [place] [address]- 1480 Jan, [facility] [place] [facility] [address] [id number], [place] [address]- 3849 Jan, [facility] [place] [facility] [address] [id number] [place] [address]- 1252 Oct, [facility] [place] [facility] [address] [id number] [place] [address]- 3136 Jul, [facility] [place] [facility] [address] [id number], [place] [address]- 2546 Jul, [facility] [place] [facility] [address] [id number], [place] [address]- 5492 Jul, [facility] [address] [id number] [place] [address]- 4781 June, [facility] [address] [id number] [place] [address]- 4086 May, [facility] [address] [facility] [id number] [place] [address]- 7643 Apr, [facility] [address] [id number] [place] [address]- 0691 Apr, [facility] [address] [id number] [place] [address]- 2450 Apr, [facility] [address] [facility] [id number] [place] [address]- 4528 Mar, [facility] [address] [facility] [id number] [place] [address]- 8918 Mar, [facility] [address] [facility] [id number] [place] [address]- 1739 Feb, [facility] [address] [facility] [id number] [place] [address]- 9256 Feb, [facility] [address] [facility] [id number] [place] [address]- 1923 Jan, [facility] [address] [id number] [place] [address]- 3499 Jan, [facility] [place] [facility] [address] [id number], [place] [address]- 2546 Jan, [facility] [place] [facility] [address] [id number] [place] [address]- 0788 Jan, [facility] [place] [facility] [address] [facility] [id number] [place] [address]- 4336 Jan, [facility] [address] [facility] [id number] [place] [address]- 8897 Dec, [facility] [place] [facility] [address] [id number] [place] [address]- 2105 Dec, [facility] [place] [facility] [address] [id number] [place] [address]- 2918 Nov, [facility] [place] [facility] [address] [id number] [place] [address]- 0427 Nov, [facility] [place] [facility] [address] [id number] [place] [address]- 4934 Nov, [facility] [place] [facility] [address] [id number] [place] 3818 Nov, [facility] [place] [facility] [address] [id number] [place] [address]- 7743 Nov, [facility] [place] [facility] [address] [id number] [place] 8815 Nov, [facility] [place] [facility] [address] [id number] [place] [address]- 3007 Oct, [facility] [place] [facility] [address] [id number] [place] [address]- 8715 Sep, [facility] [place] [facility] [address] [id number] [place] [address]- 1145 Sep, [facility] [place] [facility] [address] [id number] [place] [address]- 5269 Aug, [facility] [place] [facility] [address] [id number] [place] [address]- 2515 Aug, [facility] [place] [facility] [address] [id number] [place] [address]- 9937 Aug, [facility] [place] [facility] [address] [id number] [place] [address]- 8312 Jul, [facility] [place] [facility] [address] [id number] [place] [address]- 7166 June, [facility] [place] [facility] [address] [id number] [place] [address]- 6027 27 May, 2011 [facility] [place] [facility] [address] [id number] [place] [address]- 2461 10 May, 2011 [facility] [place] [facility] [address] [id number] [place] [address]- 7589 14 Apr, 2011 [facility] [place] [facility] [address] [id number] [place] [address]- 0374 31 Feb, 2011 [facility] [place] [facility] [address] [id number] [place] [address]- 5312 17 Feb, 2011 [facility] [address] [id number] [place] [address]- 9003 26 Jan, 2011 [facility] [place] [facility] [address] [id number] [place] [address]- 0734 21 Jan, 2011 [facility] [place] [facility] [address] [id number] [place] [address]- 5613 19 Jan, 2011 [facility] [place] [facility] [address] [id number] [place] [address]- 2649 16 Jan, 2011 [facility] [place] [facility] [address] [id number] [place] [address]- 9292 16 Jan, 2011 [facility] [place] [facility] [address] [id number] [place] [address] 14 Jan, 2011 [facility] [place] [facility] [address] [id number] [place] [address] 14 Jan, 2011 [facility] [place] [facility] [address] [id number] [address] 17 Dec, 2010 [facility] [place] [facility] [address] [id number] [place] [address] 17 Dec, 2010 [facility] [place] [facility] [address] [id number] [place] [address] 18 Nov, 2010 [facility] [place] [facility] [address] [id number] [place] [address] 10 Jan, 2010 [facility] [place] [facility] [address] [facility] [id number] [place] [address] Dec, [facility] [place] [address] [facility] [id number] [place] [address] Dec, [facility] [place] [address] [facility] [id number] [place] [address] Nov, IMMUNIZATIONS No Known Immunizations SOCIAL HISTORY Never Assessed REASON FOR VISIT intake--Graham Francisco MA PLAN OF CARE Activity Details Follow Up 4 Weeks Reason: f/u VITAL SIGNS Height 65 in 2016-10-16 Weight 419.76 lbs 2016-10-16 Heart Rate 68 bpm 2016-10-16 Respiratory Rate 18 2016-10-16 BMI 69.84 kg/m2 2016-10-16 Blood pressure systolic 120 mmHg 2016-10-16 Blood pressure diastolic 78 mmHg 2016-10-16 MEDICATIONS Medication Instructions Dosage Frequency Start Date End Date Duration Status [place] Carbonate 300 MG Orally twice a day 2 capsules 12h 45 days Active [place] Carbonate 600 MG Orally 2 times a day 1 capsule 12h Oct, 30 day(s) Active Latuda 40 mg Orally at suppertime 1 tablet with food Active RESULTS No Results PROCEDURES No Known procedures INSTRUCTIONS MEDICATIONS ADMINISTERED No Known Medications MEDICAL (GENERAL) HISTORY Type Description Date Medical History depression Medical History adhd Medical History bipolar Medical History hyperlipidemia Medical History Hx of heart valve dysfunction but says this has resolved Medical History lactose intolerant Hospitalization History [facility] x4, last incident at age 8
--- OUTSIDE RECORDS SUMMARY | 2017-12-14 17:20 | XMS REPORT ---
Author ALESHIA Aviles [facility] eClinicalWorks Address Unknown Phone Unavailable Care Team Providers Care Tearoom Hostess Name Role Phone ALESHIA BERNAL CP Unavailable Allergies, Adverse Reactions, Alerts Substance Reaction Event Type Cipro hives Drug Allergy Problems Problem Type Condition Code Onset Dates Condition Status Problem ADD (attention deficit disorder) F90.0 Active Problem Impulse control disorder, unspecified 312.30 Active Problem Schizoaffective disorder, bipolar type F25.0 Active Assessment ADD (attention deficit disorder) F90.0 Active Problem Bipolar I disorder, most recent episode (or current) mixed, unspecified 296.60 Active Assessment Schizoaffective disorder, bipolar type F25.0 Active Medications Medication Code System Code Instructions Start Date End Date Status Dosage [place] Carbonate [facility] [address]-93 300 MG Orally Once a day with dinner 3 capsules Abilify [facility] [address]-26 10 MG Orally Once a day Apr 13, 2014 1 Tablet Trazodone HCl [facility] [address]-12 50 mg TAKE ONE-HALF TO ONE TABLET BY MOUTH AT BEDTIME NEEDED Seroquel XR [facility] [address]-74 200 MG Orally Once a day 1 tablet in the evening Procedures Procedure Coding System Code Date Office Visit, Est Pt., Level 3 CPT-4 31066 June 04, 2015 Vital Signs Date/Time: June 04, 2015 Temperature 98.8 F Weight 204.8 lbs Height 64 in BMI 35.15 Index Blood Pressure Diastolic 76 mmHg Blood Pressure Systolic 126 mmHg Cardiac Monitoring Heart Rate 72 bpm Results No Known Results Summary Purpose eClinicalWorks Submission
--- OUTSIDE RECORDS SUMMARY | 2017-12-14 17:20 | XMS REPORT ---
Author Author GRAY YFN [facility] Address [address] [place] [address] Care Team Providers Care Secured Entrance Monitor Name Role Phone GRAYYFN Unavailable PROBLEMS Type Condition ICD9-CM Code SKH98-RP Code Onset Dates Condition Status SNOMED Code Problem ADD (attention deficit disorder) F90.0 Active 655911142 Problem Hypercholesterolemia with hyperglyceridemia E78.2 Active 604723030 Problem Schizoaffective disorder, bipolar type F25.0 Active 01758457 Problem Gastroesophageal reflux disease, esophagitis presence not specified K21.9 Active 247513567 Problem Social anxiety disorder F40.10 Active 77480747 Problem Bipolar disorder, current episode mixed, unspecified F31.60 Active 14448776 Problem Impulse disorder, unspecified F63.9 Active 90299480 Problem Attention deficit hyperactivity disorder (ADHD), predominantly inattentive type F90.0 Active 92154897 Problem Anxiety F41.9 Active 91144862 ALLERGIES Substance Reaction Event Type Date Status Lactose Unknown Drug Allergy Nov, Active Cipro hives Drug Allergy Nov, Active ENCOUNTERS Encounter Location Date Diagnosis [facility] [id number] [place] [address] 58367- 4320 Aug, [facility] [id number] [place] [address] 27316- 5134 May, Gastroesophageal reflux disease, esophagitis presence not specified K21.9 [facility] [id number] [place] [address] 84384- 0617 May, Schizoaffective disorder, bipolar type F25.0 [facility] [id number] [place] [address] 71345- 5288 May, Schizoaffective disorder, bipolar type F25.0 ; Impulse disorder, unspecified F63.9 ; Attention deficit hyperactivity disorder (ADHD), inattentive type, 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 and Social anxiety disorder F40.10 [facility] [id number] [place] [address] 60874- 2539 Feb, Schizoaffective disorder, bipolar type F25.0 ; Impulse disorder, unspecified F63.9 ; Attention deficit hyperactivity disorder (ADHD), inattentive type, mild F90.0 and Social anxiety disorder F40.10 [facility] [id number] [place] [address] 21672- 2275 13 Jan, 2017 Schizoaffective disorder, bipolar type F25.0 ; Impulse disorder, unspecified F63.9 ; Attention deficit hyperactivity disorder (ADHD), inattentive type, mild F90.0 and Social anxiety disorder F40.10 [facility] [id number] [address] Jan, [facility] [id number] [place] [address] 61024- 8271 Dec, Schizoaffective disorder, bipolar type F25.0 [facility] [address] [address] Dec, Schizoaffective disorder, bipolar type F25.0 ; Impulse disorder, unspecified F63.9 ; Attention deficit hyperactivity disorder (ADHD), inattentive type, mild F90.0 and Social anxiety disorder F40.10 [facility] [address] [address] 6658 Nov, Schizoaffective disorder, bipolar type F25.0 ; Impulse disorder, unspecified F63.9 ; Attention deficit hyperactivity disorder (ADHD), inattentive type, mild F90.0 and Social anxiety disorder F40.10 [facility] [address] [address] 8041 Oct, [facility] [address] [address] 0381 08 Oct, 2016 Schizoaffective disorder, bipolar type F25.0 [facility] [address] [address] Oct, Other detention (current) drug therapy Z79.899 [facility] [address] [place] [address] 45152- 7566 Oct, Schizoaffective disorder, bipolar type F25.0 ; Impulse disorder, unspecified F63.9 ; Attention deficit hyperactivity disorder (ADHD), predominantly inattentive type F90.0 ; Anxiety F41.9 and 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.899 [facility] [address] [address] 93[address] Sep, [facility] [id number] [place] [address] 64050- 7391 Jul, Hypercholesterolemia with hyperglyceridemia E78.2 [facility] [address] [place] [address] 46161- 6863 Jul, Schizoaffective disorder, bipolar type F25.0 and Impulse disorder, unspecified F63.9 [facility] [address] [address] 6267 May, Hypercholesterolemia with hyperglyceridemia E78.2 ; Impulse disorder, unspecified F63.9 ; Bipolar disorder, current episode mixed, unspecified F31.60 ; Schizoaffective disorder, bipolar type F25.0 and ADD ( attention deficit disorder) F90.0 [facility] [address] [address]- 2416 Apr, [facility] [address] [address]- 5403 Apr, [facility] [id number] [place] [address] 91819- 6771 Apr, Schizoaffective disorder, bipolar type F25.0 [facility] [address] [address]- 8802 Apr, [facility] [id number] [address]- 5812 Apr, [facility] [id number] [place] [address] 84690- 7166 Apr, Schizoaffective disorder, bipolar type F25.0 [facility] [id number] [place] [address] 47229- 1703 Apr, Schizoaffective disorder, bipolar type F25.0 [facility] [id number] [place] [address] 28718- 8451 Dec, [facility] [id number] [place] [address] 47146- 9030 Dec, [facility] [id number] [place] [address] 23909- 7740 Dec, Schizoaffective disorder, bipolar type F25.0 and Other detention (current) drug therapy Z79.899 [facility] [id number] [place] [address] 30981- 1649 May, ADD (attention deficit disorder) F90.0 [facility] [id number] [place] [address] 57595- 1720 May, ADD (attention deficit disorder) F90.0 [facility] [id number] [place] [address] 85655- 3023 May, Schizoaffective disorder, bipolar type F25.0 and ADD ( attention deficit disorder) F90.0 [facility] [address] [address]- 6406 May, [facility] [id number] [place] [address] 59953- 1212 Nov, [facility] [id number] [place] [address] 66460- 9676 Nov, Encounter for long-term (current) use of other medications Z79.899 [facility] [id number] [place] [address] 93056- 1599 Nov, Schizoaffective disorder, bipolar type F25.0 ; Anxiety disorder, unspecified F41.9 ; Impulse disorder, unspecified F63.9 and Encounter for long-term (current) use of other medications Z79.899 [facility] [address] 7438 Sep, [facility] [id number] [place] [address] 51927- 3951 Sep, [facility] [id number] [place] [address] 10969- 7679 Aug, [facility] [id number] [place] [address] 22407- 3179 Jul, [facility] [id number] [place] [address] 39124- 8483 June, [facility] [id number] [place] [address] 24530- 4523 May, [facility] [id number] [place] [address] 47664- 3064 May, [facility] [id number] [place] [address] 14986- 2451 Apr, [facility] [address] [address]- 2219 Apr, [facility] [address] [place] [address] 25802- 7434 Mar, [facility] [address] 0430 Mar, [facility] [id number] [place] [address] 90827- 8806 Mar, [facility] [address] 6773 Mar, [facility] [id number] [place] [address] 19605- 3162 Mar, [facility] [address] [id number] [place] [address]- 7612 Mar, [facility] [place] [facility] [address] [id number] [place] [address]- 0700 Feb, [facility] [place] [facility] [address] [id number] [place] [address]- 3130 Feb, [facility] [place] [facility] [address] [id number] [place] [address]- 7525 Feb, [facility] [place] [facility] [address] [id number] [place] [address]- 1671 Feb, [facility] [place] [facility] [address] [id number] [place] [address]- [address] Jan, [facility] [address] [id number] [place] [address]- 9825 Jan, [facility] [place] [facility] [address] [id number] [place] [address]- 3814 Jan, [facility] [place] [facility] [address] [id number] [place] [address]- 6326 Jan, [facility] [place] [facility] [address] [facility] [id number] [place] [address]- 6972 Jan, [facility] [place] [facility] [address] [id number] [place] [address]- 3959 Jan, [facility] [place] [facility] [address] [id number] [address]- 3925 Dec, [facility] [place] [facility] [address] [id number] [place] [address]- 5154 Dec, [facility] [place] [facility] [address] [id number] [place] [address]- 6546 Dec, [facility] [place] [facility] [address] [facility] [id number] [place] [address]- 8234 Dec, [facility] [place] [facility] [address] [id number] [place] [address]- 4698 Nov, [facility] [place] [facility] [address] [id number] [place] [address]- 7993 Nov, [facility] [place] [facility] [address] [id number] [place] [address]- 6848 Nov, [facility] [place] [facility] [address] [id number] [place] [address]- 2858 Nov, [facility] [place] [facility] [address] [id number] [place] [address]- 4531 Nov, [facility] [place] [facility] [address] [id number] [place] [address]- 6446 Nov, [facility] [place] [facility] [address] [id number] [place] [address]- 0385 Nov, [facility] [place] [facility] [address] [id number] [place] [address]- 6431 Nov, [facility] [place] [facility] [address] [id number] [place] [address]- 3949 05 Oct, 2013 [facility] [place] [facility] [address] [id number] [place] [address]- 6138 05 Oct, 2013 [facility] [place] [facility] [address] [id number] [place] [address]- 8929 Oct, 2013 [facility] [place] [facility] [address] [id number] [place] [address]- 1555 05 Oct, 2013 [facility] [place] [facility] [address] [id number] [place] [address]- 8611 Sep, [facility] [place] [facility] [address] [id number] [place] [address]- 0775 Sep, [facility] [place] [facility] [address] [id number] [place] [address]- 8861 Aug, [facility] [place] [facility] [address] [id number] [place] [address]- 3965 Aug, [facility] [place] [facility] [address] [id number] [place] [address]- 9079 Jul, [facility] [place] [facility] [address] [id number] [place] [address]- 8954 Jul, [facility] [place] [facility] [address] [id number] [place] [address]- 4733 Jul, [facility] [place] [facility] [address] [id number] [place] [address]- 8327 Jul, [facility] [place] [facility] [address] [id number] [place] [address]- 6342 Jul, [facility] [place] [facility] [address] [id number] [place] [address]- 3240 Jul, [facility] [place] [facility] [address] [id number] [place] [address]- 1421 Jul, [facility] [place] [facility] [address] [id number] [place] [address]- 2032 Jul, [facility] [place] [facility] [address] [id number] [place] [address]- 8986 June, [facility] [place] [facility] [address] [id number] [place] [address]- 4251 June, [facility] [place] [facility] [address] [id number] [place] [address]- 7803 May, [facility] [place] [facility] [address] [id number] [place] [address]- 7820 May, [facility] [place] [facility] [address] [id number] [place] [address]- 5731 May, [facility] [place] [facility] [address] [id number] [place] [address]- 5268 May, [facility] [place] [facility] [address] [id number] [place] [address]- 9236 May, [facility] [place] [facility] [address] [id number] [place] [address]- 7571 Apr, [facility] [address] [id number] [place] [address]- 9307 Apr, [facility] [address] [id number] [place] [address]- 7076 Mar, [facility] [address] [id number] [place] [address]- 0626 Mar, [facility] [address] [id number] [place] [address]- 5930 Feb, [facility] [address] [id number] [place] [address]- 4758 Feb, [facility] [address] [id number] [place] [address]- 7887 Jan, [facility] [address] [id number] [place] [address]- 5213 Jan, [facility] [address] [id number] [place] [address]- 5598 Jan, [facility] [address] [id number] [place] [address]- 2022 Jan, [facility] [address] [facility] [id number] [place] [address]- 8948 Jan, [facility] [place] [facility] [address] [id number] [place] [address]- 2546 Jan, [facility] [address] [id number] [place] [address]- 3130 Jan, [facility] [place] [facility] [address] [id number] [place] [address]- 3235 Jan, [facility] [place] [facility] [address] [id number] [place] [address]- 2726 Jan, [facility] [place] [facility] [address] [id number] [place] [address]- 2464 Oct, [facility] [address] [id number] [place] [address]- 8135 Jul, [facility] [place] [facility] [address] [id number] [place] [address]- 4726 Jul, [facility] [place] [facility] [address] [id number] [place] [address]- 9436 Jul, [facility] [place] [facility] [address] [id number] [place] [address]- 9776 June, [facility] [address] [id number] [place] [address]- 7739 May, [facility] [place] [facility] [address] [id number] [place] [address]- 6546 Apr, [facility] [place] [facility] [address] [id number] [place] [address]- 8456 Apr, [facility] [address] [id number] [place] [address]- 3116 05 Apr, 2012 [facility] [place] [facility] [address] [id number] [place] [address]- 7419 Mar, [facility] [place] [facility] [address] [id number] [place] [address]- 0526 Mar, [facility] [place] [facility] [address] [id number] [place] [address]- 7636 Feb, [facility] [place] [facility] [address] [id number] [place] [address]- 7436 Feb, [facility] [place] [facility] [address] [id number] [place] [address]- 6326 Jan, [facility] [place] [facility] [address] [id number] [place] [address]- 8466 Jan, [facility] [place] [facility] [address] [id number] [place] [address]- 7956 Jan, [facility] [place] [facility] [address] [id number] [place] [address] 2543 Jan, [facility] [place] [facility] [address] [id number] [place] [address]- 1664 Jan, [facility] [place] [facility] [address] [id number] [place] [address]- 7359 Dec, [facility] [place] [facility] [address] [id number] [place] [address] 2543 Dec, [facility] [place] [facility] [address] [id number] [place] [address]- 8262 Nov, [facility] [place] [facility] [address] [id number] [place] [address]- 0376 Nov, [facility] [place] [facility] [address] [id number] [place] [address]- 9891 Nov, [facility] [place] [facility] [address] [id number] [place] [address]- 3450 Nov, [facility] [place] [facility] [address] [id number] [place] [address]- 5998 Nov, [facility] [place] [facility] [address] [id number] [place] [address]- 1297 Nov, [facility] [place] [facility] [address] [id number] [place] [address]- 4838 Oct, [facility] [place] [facility] [address] [id number] [place] [address]- 9717 Sep, [facility] [place] [facility] [address] [id number] [place] [address]- 9655 Sep, [facility] [place] [facility] [address] [id number] [place] [address]- 5751 Aug, [facility] [place] [facility] [address] [id number] [place] [address] 2546 Aug, [facility] [place] [facility] [address] [id number] [place] [address] 2546 Aug, [facility] [place] [facility] [address] [id number] [place] [address]- 6580 Jul, [facility] [place] [facility] [address] [id number] [place] [address]- 5866 June, [facility] [place] [facility] [address] [id number] [place] [address]- 0136 May, [facility] [place] [facility] [address] [id number] [place] [address]- 7927 May, [facility] [place] [facility] [address] [id number] [place] [address]- 5182 Apr, [facility] [place] [facility] [address] [id number] [place] [address]- 5807 Feb, [facility] [place] [facility] [address] [id number] [place] [address]- 7405 Feb, [facility] [place] [facility] [address] [id number] [place] [address]- 1893 26 Jan, 2011 [facility] [place] [facility] [address] [id number] [place] [address]- 8617 Jan, [facility] [place] [facility] [address] [id number] [place] [address]- 4301 Jan, [facility] [place] [facility] [address] [id number] [place] [address]- 2457 16 Jan, 2011 [facility] [place] [facility] [address] [id number] [place] [address]- 0076 16 Jan, 2011 [facility] [place] [facility] [address] [id number] [place] [address]- 8200 14 Jan, 2011 [facility] [place] [facility] [address] [id number] [place] [address] 2546 14 Jan, 2011 [facility] [place] [facility] [address] [id number] [place] [address]- 2546 17 Dec, 2010 [facility] [place] [facility] [address] [id number] [place] [address]- 4470 Dec, [facility] [address] [facility] [id number] [place] [address]- 4140 Nov, [facility] [address] [facility] [id number] [place] [address]- 8176 Jan, [facility] [address] [facility] [id number] [place] [address] 2546 Dec, [facility] [address] [facility] [id number] [place] [address]- 2376 Dec, [facility] [address] [facility] [id number] [place] [address]- 0960 Nov, IMMUNIZATIONS No Known Immunizations SOCIAL HISTORY Never Assessed REASON FOR VISIT f/u PLAN OF CARE Activity Details Follow Up 4 Weeks Reason: f/u VITAL SIGNS Height 65 in 2016-11-26 Weight 188.6 lbs 2016-11-26 Heart Rate 76 bpm 2016-11-26 Respiratory Rate 20 2016-11-26 BMI 31.38 kg/m2 2016-11-26 Blood pressure systolic 104 mmHg 2016-11-26 Blood pressure diastolic 78 mmHg 2016-11-26 MEDICATIONS Medication Instructions Dosage Frequency Start Date End Date Duration Status Hortense Carbonate 300 MG Orally twice a day 2 capsules 12h Active BusPIRone HCl 10 mg Orally Twice a day 1 tablet 12h 12 Nov, 2016 30 days Active Latuda 40 mg Orally at suppertime 1 tablet with food Active RESULTS No Results PROCEDURES No Known procedures INSTRUCTIONS MEDICATIONS ADMINISTERED No Known Medications MEDICAL (GENERAL) HISTORY Type Description Date Medical History depression Medical History adhd Medical History bipolar Medical History hyperlipidemia Medical History Hx of heart valve dysfunction but says this has resolved Medical History lactose intolerant Hospitalization History [facility] x4, last incident at age 8
--- OUTSIDE RECORDS SUMMARY | 2017-12-14 17:20 | XMS REPORT ---
Author Author Andi ALISA [facility] Address [address] [place] [address] Care Team Providers Care Typewriter Aligner Name Role Phone elyZEFERINO CifuentesY Unavailable PROBLEMS Type Condition ICD9-CM Code [id number] Code Onset Dates Condition Status SNOMED Code Problem Schizoaffective disorder, bipolar type F25.0 Active 31551777 Problem Anxiety F41.9 Active 00846924 Problem Attention deficit hyperactivity disorder (ADHD), predominantly inattentive type F90.0 Active 69684595 Problem Impulse disorder, unspecified F63.9 Active 18096123 Problem ADD (attention deficit disorder) F90.0 Active 402118373 Problem Hypercholesterolemia with hyperglyceridemia E78.2 Active 549552068 Problem Bipolar disorder, current episode mixed, unspecified F31.60 Active 21570943 ALLERGIES Substance Reaction Event Type Date Status Cipro hives Drug Allergy Apr, Active SOCIAL HISTORY Never Assessed PLAN OF CARE Activity Details Follow Up 3 Months Reason: VITAL SIGNS Height 64 in 2016-04-16 Weight 180.0 lbs 2016-04-16 Heart Rate 72 bpm 2016-04-16 Respiratory Rate 18 2016-04-16 BMI 30.89 kg/m2 2016-04-16 Blood pressure systolic 111 mmHg 2016-04-16 Blood pressure diastolic 79 mmHg 2016-04-16 MEDICATIONS Medication Instructions Dosage Frequency Start Date End Date Duration Status Palo Carbonate 300 MG TAKE THREE CAPSULES BY MOUTH ONCE DAILY WITH DINNER Active Latuda 20 MG Orally BID 1 tablet with food 12h Dec, 30 days Active RESULTS No Results PROCEDURES No Known procedures IMMUNIZATIONS No Known Immunizations MEDICAL (GENERAL) HISTORY Type Description Date Medical History depression Medical History adhd Medical History bipolar Medical History hyperlipidemia Medical History Hx of heart valve dysfunction but says this has resolved Hospitalization History [facility] hospital x4, last incident at age 8
--- OUTSIDE RECORDS SUMMARY | 2017-12-14 17:20 | XMS REPORT ---
Author Author ALESHIA BERNAL [facility] Address [address] [place] [address] Care Team Providers Care Table Top Tile Setter Name Role Phone ALESHIA BERNAL Unavailable PROBLEMS Type Condition ICD9-CM Code [id number] Code Onset Dates Condition Status SNOMED Code Problem Schizoaffective disorder, bipolar type F25.0 Active 83892298 Problem Anxiety F41.9 Active 38472182 Problem Attention deficit hyperactivity disorder (ADHD), predominantly inattentive type F90.0 Active 01249248 Problem Impulse disorder, unspecified F63.9 Active 68860876 Problem ADD (attention deficit disorder) F90.0 Active 256969169 Problem Hypercholesterolemia with hyperglyceridemia E78.2 Active 026365978 Problem Bipolar disorder, current episode mixed, unspecified F31.60 Active 39790245 ALLERGIES No Information SOCIAL HISTORY Never Assessed PLAN OF CARE VITAL SIGNS MEDICATIONS Medication Instructions Dosage Frequency Start Date End Date Duration Status Latuda 20 mg Orally BID 1 tablet with food 12h Dec, 90 days Active RESULTS No Results PROCEDURES No Known procedures IMMUNIZATIONS No Known Immunizations MEDICAL (GENERAL) HISTORY Type Description Date Medical History depression Medical History adhd Medical History bipolar Medical History hyperlipidemia Medical History Hx of heart valve dysfunction but says this has resolved Hospitalization History [facility] x4, last incident at age 8
--- OUTSIDE RECORDS SUMMARY | 2017-12-14 17:20 | XMS REPORT ---
Author Author ALESHIA BERNAL [facility] eClinicalWorks Address Unknown Phone Unavailable Care Team Providers Care Aircraft Riveter Name Role Phone ALESHIA BERNAL CP Unavailable Allergies No Known Allergies Problems Problem Type Condition Code Onset Dates Condition Status Problem Anxiety state, unspecified 300.00 Active Problem Unspecified psychosis 298.9 Active Problem Schizoaffective disorder, unspecified 295.70 Active Problem Bipolar I disorder, most recent episode (or current) mixed, unspecified 296.60 Active Problem Impulse control disorder, unspecified 312.30 Active Problem Other dysfunctions of sleep stages or arousal from sleep 307.47 Active Medications Medication Code System Code Instructions Start Date End Date Status Dosage Rusk Carbonate [facility] [address]-51 300 MG Orally Once a day with dinner 3 capsules Seroquel XR [facility] [address]-38 200 MG Orally Once a day 1 tablet in the evening Results No Known Results Summary Purpose eClinicalWorks Submission
--- OUTSIDE RECORDS SUMMARY | 2017-12-14 17:20 | XMS REPORT ---
Author Author GRAY YFN [facility] Address [address] [place] [address] Care Team Providers Care Director Supplier Quality Name Role Phone GRAY, YFN Unavailable PROBLEMS Type Condition ICD9-CM Code GDF16-SH Code Onset Dates Condition Status SNOMED Code Problem ADD (attention deficit disorder) F90.0 Active 801221673 Problem Hypercholesterolemia with hyperglyceridemia E78.2 Active 769347956 Problem Schizoaffective disorder, bipolar type F25.0 Active 10924027 Problem Gastroesophageal reflux disease, esophagitis presence not specified K21.9 Active 173754322 Problem Social anxiety disorder F40.10 Active 47784751 Problem Bipolar disorder, current episode mixed, unspecified F31.60 Active 30783765 Problem Impulse disorder, unspecified F63.9 Active 67030146 Problem Attention deficit hyperactivity disorder (ADHD), predominantly inattentive type F90.0 Active 15868734 Problem Anxiety F41.9 Active 44202267 ALLERGIES Substance Reaction Event Type Date Status Lactose Unknown Drug Allergy Jan, Active Cipro hives Drug Allergy Jan, Active ENCOUNTERS Encounter Location Date Diagnosis [place] [id number] [place] [address] 56626- 7672 May, Gastroesophageal reflux disease, esophagitis presence not specified K21.9 [facility] [place] [id number] [place] [address] 68162- 3315 May, Schizoaffective disorder, bipolar type F25.0 [facility] [place] [id number] [place] [address] 27820- 3080 May, Schizoaffective disorder, bipolar type F25.0 ; Impulse disorder, unspecified F63.9 ; Attention deficit hyperactivity disorder (ADHD), inattentive type, 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 and Social anxiety disorder F40.10 [facility] [place] [id number] [address] Feb, Schizoaffective disorder, bipolar type F25.0 ; Impulse disorder, unspecified F63.9 ; Attention deficit hyperactivity disorder (ADHD), inattentive type, mild F90.0 and Social anxiety disorder F40.10 [facility] [place] [id number] [place] [address] 12306- 2950 Jan, Schizoaffective disorder, bipolar type F25.0 ; Impulse disorder, unspecified F63.9 ; Attention deficit hyperactivity disorder (ADHD), inattentive type, mild F90.0 and Social anxiety disorder F40.10 [place] [id number] [place] [address] 55034- 5878 Jan, [place] [id number] [place] [address] 47689- 1308 Dec, Schizoaffective disorder, bipolar type F25.0 [place] [id number] [place] [address] 49663- 8486 Dec, Schizoaffective disorder, bipolar type F25.0 ; Impulse disorder, unspecified F63.9 ; Attention deficit hyperactivity disorder (ADHD), inattentive type, mild F90.0 and Social anxiety disorder F40.10 [place] [address] [address] Nov, Schizoaffective disorder, bipolar type F25.0 ; Impulse disorder, unspecified F63.9 ; Attention deficit hyperactivity disorder (ADHD), inattentive type, mild F90.0 and Social anxiety disorder F40.10 [place] [address], [place] [address] Oct, [facility] [place] [id number] [place] [address] 65238- 2270 Oct, Schizoaffective disorder, bipolar type F25.0 [facility] [place] [id number] [place] [address] 52165- 0536 Oct, Other fci (current) drug therapy Z79.899 [facility] [place] [id number] [place] [address] 34783- 7560 Oct, Schizoaffective disorder, bipolar type F25.0 ; Impulse disorder, unspecified F63.9 ; Attention deficit hyperactivity disorder (ADHD), predominantly inattentive type F90.0 ; Anxiety F41.9 and Other fci ( current) drug therapy Z79.899 [facility] [place] [id number] [place] [address] 36213- 5433 Sep, [facility] [place] [id number] [place] [address] 63923- 2599 Jul, Hypercholesterolemia with hyperglyceridemia E78.2 [facility] [place] [id number] [place] [address] 75325- 4619 Jul, Schizoaffective disorder, bipolar type F25.0 and Impulse disorder, unspecified F63.9 [facility] [place] [id number] [place] [address] 13704- 7346 May, Hypercholesterolemia with hyperglyceridemia E78.2 ; Impulse disorder, unspecified F63.9 ; Bipolar disorder, current episode mixed, unspecified F31.60 ; Schizoaffective disorder, bipolar type F25.0 and ADD ( attention deficit disorder) F90.0 [facility] [place] [address] [address]- 9863 Apr, [facility] [place] [id number] [place] [address] 52999- 4321 Apr, [facility] [place] [id number] [place] [address] 94221- 8622 Apr, Schizoaffective disorder, bipolar type F25.0 [facility] [place] [id number] [place] [address] 60048- 9426 Apr, [facility] [place] [id number] [place] [address] 23305- 4546 Apr, [facility] [place] [id number] [address]- 7886 Apr, Schizoaffective disorder, bipolar type F25.0 [facility] [place] [id number] [place] [address] 31461- 2602 Apr, Schizoaffective disorder, bipolar type F25.0 [facility] [place] [address] [address]- 8548 Dec, [facility] [place] [id number] [place] [address] 10426- 3776 Dec, [facility] [place] [id number] [place] [address] 84341- 0985 Dec, Schizoaffective disorder, bipolar type F25.0 and Other fci (current) drug therapy Z79.899 [facility] [place] [id number] [place] [address] 98073- 7089 May, ADD (attention deficit disorder) F90.0 [facility] [place] [id number] [place] [address] 58026- 1808 May, ADD (attention deficit disorder) F90.0 [facility] [place] [id number] [place] [address] 41939- 8009 May, Schizoaffective disorder, bipolar type F25.0 and ADD ( attention deficit disorder) F90.0 [facility] [place] [address] [address]- 9638 May, [facility] [place] [address] [address]- 7866 Nov, [facility] [place] [id number] [place] [address] 38000- 1959 Nov, Encounter for long-term (current) use of other medications Z79.899 [facility] [place] [address] [address]- 1642 Nov, Schizoaffective disorder, bipolar type F25.0 ; Anxiety disorder, unspecified F41.9 ; Impulse disorder, unspecified F63.9 and Encounter for long-term (current) use of other medications Z79.899 [facility] [place] [id number] [place] [address] 02476- 3341 Sep, [facility] [place] [id number] [place] [address] 24218- 6271 Sep, [facility] [place] [id number] [place] [address] 50907- 1791 Aug, [facility] [id number] [place] [address] 12019- 5002 Jul, [facility] [place] [id number] [place] [address] 25727- 7200 June, [facility] [place] [id number] [place] [address] 33436- 5536 May, [facility] [place] [id number] [place] [address] 56785- 2140 May, [facility] [place] [id number] [place] [address] 51414- 5253 Apr, [facility] [place] [id number] [place] [address] 15179- 4132 Apr, [facility] [place] [id number] [place] [address] 57472- 6056 Mar, [facility] [place] [id number] [place] [address] 20670- 0714 Mar, [facility] [place] [address], [place] [address]- 5075 Mar, [facility] [place] [id number] [address]- 6761 Mar, [facility] [place] [address], [place] [address]- 7607 Mar, [facility] [place] [id number] [place] [address] 73440- 2245 Mar, [facility] [address] [id number] [place] [address]- 8896 Feb, [facility] [place] [facility] [address] [id number] [place] [address]- 0108 Feb, [facility] [place] [facility] [address] [facility] [id number] [place] [address]- 9741 Feb, [facility] [place] [facility] [address] [id number] [place] [address]- 3354 Feb, [facility] [place] [facility] [address] [id number] [place] 0417 Jan, [facility] [place] [facility] [address] [id number] [place] [address]- 0154 Jan, [facility] [place] [facility] [address] [facility] [id number] [place] [address]- 2878 Jan, [facility] [place] [facility] [address] [facility] [id number] [place] [address]- 7134 Jan, [facility] [place] [facility] [id number] [place] [address]- 0674 Jan, [facility] [place] [facility] [address] [facility] [id number] [place] [address]- 5599 Jan, [facility] [place] [facility] [address] [id number] [place] [address]- 5537 Dec, [facility] [place] [facility] [address] [id number], [place] [address]- 2034 Dec, [facility] [place] [facility] [address] [id number] [place] [address]- 2177 Dec, [facility] [place] [facility] [address] [facility] [id number] [place] [address]- 3961 Dec, [facility] [place] [facility] [address] [facility] [id number] [place] [address]- 2269 Nov, [facility] [place] [facility] [address] [id number] [place] [address]- 9835 Nov, [facility] [place] [facility] [address] [id number] [place] 1640 Nov, [facility] [place] [facility] [address] [id number] [place] 1233 Nov, 2013 [facility] [place] [facility] [address] [id number] [place] [address]- 9455 Nov, [facility] [place] [facility] [address] [id number] [place] [address]- 7530 Nov, [facility] [place] [facility] [address] [id number] [place] [address]- 3078 Nov, [facility] [place] [facility] [address] [id number] [place] 7189 Nov, [facility] [place] [facility] [address] [id number] [place] [address]- 9429 Oct, 2013 [facility] [place] [facility] [address] [id number] [place] [address]- 0009 Oct, 2013 [facility] [place] [facility] [address] [id number] [place] [address]- 4087 Oct, 2013 [facility] [place] [facility] [address] [id number] [place] [address]- 1695 Oct, 2013 [facility] [place] [facility] [address] [id number] [place] [address]- 3465 Sep, [facility] [place] [facility] [address] [id number] [place] [address]- 2464 Sep, [facility] [place] [facility] [address] [id number] [place] [address]- 8071 Aug, [facility] [place] [facility] [address] [id number] [place] [address]- 5106 Aug, [facility] [place] [facility] [address] [id number] [place] [address]- 2001 Jul, [facility] [place] [facility] [address] [id number] [place] [address]- 2778 Jul, [facility] [place] [facility] [address] [id number] [place] [address]- 8829 Jul, [facility] [place] [facility] [address] [id number] [place] [address]- 5633 Jul, [facility] [place] [facility] [address] [id number] [place] [address]- 2587 Jul, [facility] [place] [facility] [address] [id number] [place] [address]- 2977 Jul, [facility] [place] [facility] [address] [id number] [place] [address]- 5005 Jul, [facility] [place] [facility] [address] [id number] [place] [address]- 7718 Jul, [facility] [place] [facility] [address] [id number] [place] [address]- 5946 June, [facility] [place] [facility] [address] [id number] [place] [address]- 5876 June, [facility] [place] [facility] [address] [id number] [place] [address]- 4115 May, [facility] [place] [facility] [address] [id number], [place] [address]- 0371 May, [facility] [place] [facility] [address] [id number], [place] [address]- 2430 May, [facility] [place] [facility] [address] [id number] [place] [address]- 7291 May, [facility] [place] [facility] [address] [id number] [place] [address]- 8849 May, [facility] [place] [facility] [address] [id number] [place] [address]- 7827 Apr, [facility] [place] [facility] [address] [id number] [place] [address]- 7403 Apr, [facility] [address] [id number] [place] [address]- 3086 Mar, [facility] [address] [id number] [place] [address]- 4776 Mar, [facility] [address] [id number] [place] [address]- 0721 Feb, [facility] [address] [id number] [place] [address]- 6118 Feb, [facility] [address] [id number] [place] [address]- 4597 Jan, [facility] [address] [id number] [place] [address]- 1624 Jan, [facility] [address] [id number] [place] [address]- 2778 Jan, [facility] [address] [id number] [place] [address]- 3583 Jan, [facility] [address] [facility] [id number] [place] [address]- 1393 Jan, [facility] [address] [facility] [id number] [place] [address]- 3832 Jan, [facility] [address] [id number] [place] [address]- 4954 Jan, [facility] [address] [id number] [place] [address]- 3174 Jan, [facility] [place] [facility] [address] [id number] [place] [address]- 1461 Jan[facility] [address] [id number] [place] [address]- 2546 18 Oct, 2012 [facility] [address] [id number] [place] [address]- 3407 Jul, [facility] [address] [id number] [place] [address]- 6516 Jul, [facility] [place] [facility] [address] [id number] [place] [address]- 0296 Jul, [facility] [place] [facility] [address] [id number] [place] [address]- 1546 June, [facility] [place] [facility] [address] [id number] [place] [address]- 2546 May, [facility] [address] [id number] [place] [address]- 3966 Apr, [facility] [place] [facility] [address] [id number] [place] [address]- 3266 Apr, [facility] [address] [id number] [place] [address]- 2546 Apr, [facility] [address] [id number] [place] [address]- 3076 Mar, [facility] [place] [facility] [address] [id number] [place] [address]- 3886 Mar, [facility] [address] [facility] [id number] [place] [address]- 6116 Feb, [facility] [place] [facility] [address] [id number] [place] [address]- 2546 Feb, [facility] [place] [facility] [address] [id number], [place] [address]- 1586 Jan, [facility] [place] [facility] [address] [id number] [place] [address]- 1326 Jan, [facility] [place] [facility] [address] [id number] [place] [address]- 3336 Jan, [facility] [place] [facility] [address] [id number] [place] [address]- 2546 Jan, [facility] [place] [facility] [address] [id number] [place] [address]- 0848 Jan, [facility] [place] [facility] [address] [id number] [place] [address]- 5848 Dec, [facility] [place] [facility] [address] [id number] [place] [address]- 3615 Dec, [facility] [place] [facility] [address] [id number] [place] [address]- 8846 Nov, [facility] [place] [facility] [address] [id number] [place] [address]- 1997 Nov, [facility] [place] [facility] [address] [id number] [place] [address]- 7523 Nov, [facility] [place] [facility] [address] [id number] [place] [address]- 9291 Nov, [facility] [place] [facility] [address] [id number] [place] [address]- 8608 Nov, [facility] [place] [facility] [address] [id number] [place] [address]- 5599 Nov, [facility] [place] [facility] [address] [id number] [place] [address]- 5534 Oct, [facility] [place] [facility] [address] [id number] [place] [address]- 1336 Sep, [facility] [place] [facility] [address] [id number] [place] [address]- 3131 Sep, [facility] [place] [facility] [address] [id number] [place] [address]- 3475 Aug, [facility] [place] [facility] [address] [id number] [place] [address]- 8713 Aug, [facility] [place] [facility] [address] [id number] [place] [address]- 1218 Aug, [facility] [place] [facility] [address] [facility] [id number] [place] [address] Jul, [facility] [place] [facility] [address] [id number] [place] [address] June, [facility] [place] [facility] [address] [id number] [place] [address] 27 May, 2011 [facility] [place] [facility] [address] [id number] [place] [address] May, [facility] [place] [facility] [address] [id number] [place] [address] Apr, [facility] [place] [facility] [address] [id number] [place] [address] 31 Feb, 2011 [facility] [place] [facility] [address] [id number] [place] [address] Feb, [facility] [place] [facility] [address] [id number] [place] [address] 26 Jan, 2011 [facility] [place] [facility] [address] [id number] [place] [address] 21 Jan, 2011 [facility] [place] [facility] [address] [id number] [place] [address] 19 Jan, 2011 [facility] [place] [facility] [address] [id number] [place] [address] 16 Jan, 2011 [facility] [place] [facility] [address] [id number] [place] [address] [address] 16 Jan, 2011 [facility] [place] [facility] [address] [id number] [place] [address] 14 Jan, 2011 [facility] [place] [facility] [address] [id number] [place] [address] 14 Jan, 2011 [facility] [place] [facility] [address] [id number] [place] [address] 17 Dec, 2010 [facility] [place] [facility] [address] [id number] [place] [address] 17 Dec, 2010 [facility] [place] [facility] [address] [id number] [place] [address] Nov, [facility] [place] [address] [facility] [id number] [place] [address] Jan, [facility] [place] [address] [facility] [id number], [place] [address] Dec, [facility] [place] [address] [facility] [id number], [place] [address] Dec, [facility] [place] [address] [facility] [id number], [place] [address] Nov, IMMUNIZATIONS No Known Immunizations SOCIAL HISTORY Never Assessed REASON FOR VISIT f/u--Graham Francisco MA PLAN OF CARE Activity Details Follow Up 2 Weeks Reason: f/u VITAL SIGNS Height 65 in 2017-01-27 Weight 187.7 lbs 2017-01-27 Heart Rate 72 bpm 2017-01-27 Respiratory Rate 20 2017-01-27 BMI 31.23 kg/m2 2017-01-27 Blood pressure systolic 114 mmHg 2017-01-27 Blood pressure diastolic 70 mmHg 2017-01-27 MEDICATIONS Medication Instructions Dosage Frequency Start Date End Date Duration Status Latuda 40 mg Orally at suppertime 1 tablet with food Active Zoloft 50 mg Orally Once a day 1 tablet 24h Dec, Active [place] Carbonate 300 MG Orally twice a day 2 capsules 12h Active RESULTS No Results PROCEDURES No Known procedures INSTRUCTIONS MEDICATIONS ADMINISTERED No Known Medications MEDICAL (GENERAL) HISTORY Type Description Date Medical History depression Medical History adhd Medical History bipolar Medical History hyperlipidemia Medical History Hx of heart valve dysfunction but says this has resolved Medical History lactose intolerant Hospitalization History [facility] x4, last incident at age 8
--- OUTSIDE RECORDS SUMMARY | 2017-12-14 17:20 | XMS REPORT ---
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
--- OUTSIDE RECORDS SUMMARY | 2017-12-14 17:20 | XMS REPORT ---
Author Author ALISA Escamilla [facility] Address [address] [place] [address] Care Team Providers Care Competitive Shopper Name Role Phone ALISA Escamilla Unavailable PROBLEMS Type Condition ICD9-CM Code PIX12-DW Code Onset Dates Condition Status SNOMED Code Problem Schizoaffective disorder, bipolar type F25.0 Active 87540516 Problem Anxiety F41.9 Active 66180363 Problem Attention deficit hyperactivity disorder (ADHD), predominantly inattentive type F90.0 Active 13011731 Problem Impulse disorder, unspecified F63.9 Active 24052128 Problem ADD (attention deficit disorder) F90.0 Active 598441442 Problem Hypercholesterolemia with hyperglyceridemia E78.2 Active 393652622 Problem Bipolar disorder, current episode mixed, unspecified F31.60 Active 04718399 ALLERGIES No Information SOCIAL HISTORY Never Assessed PLAN OF CARE VITAL SIGNS MEDICATIONS Medication Instructions Dosage Frequency Start Date End Date Duration Status Latuda 40 MG Orally at suppertime 1 tablet with food Apr, 90 days Active RESULTS No Results PROCEDURES No Known procedures IMMUNIZATIONS No Known Immunizations MEDICAL (GENERAL) HISTORY Type Description Date Medical History depression Medical History adhd Medical History bipolar Medical History hyperlipidemia Medical History Hx of heart valve dysfunction but says this has resolved Hospitalization History [facility] x4, last incident at age 8
--- OUTSIDE RECORDS SUMMARY | 2017-12-14 17:21 | XMS REPORT ---
Author Author YFN CASTELLANO [facility] Address [address] [place] [address] Care Team Providers Care Search Optimization Analyst Name Role Phone GRAYYFN Unavailable PROBLEMS Type Condition ICD9-CM Code CEZ95-BC Code Onset Dates Condition Status SNOMED Code Problem ADD (attention deficit disorder) F90.0 Active 733732244 Problem Hypercholesterolemia with hyperglyceridemia E78.2 Active 647630792 Problem Schizoaffective disorder, bipolar type F25.0 Active 82358230 Problem Gastroesophageal reflux disease, esophagitis presence not specified K21.9 Active 417806619 Problem Social anxiety disorder F40.10 Active 02881430 Problem Bipolar disorder, current episode mixed, unspecified F31.60 Active 50418540 Problem Impulse disorder, unspecified F63.9 Active 45653895 Problem Attention deficit hyperactivity disorder (ADHD), predominantly inattentive type F90.0 Active 13877800 Problem Anxiety F41.9 Active 44969043 ALLERGIES No Information ENCOUNTERS Encounter Location Date Diagnosis [facility] [id number] [place] [address] 06255- 1411 May, Gastroesophageal reflux disease, esophagitis presence not specified K21.9 [facility] [id number] [place] [address] 57102- 0432 May, Schizoaffective disorder, bipolar type F25.0 [facility] [id number] [place] [address] 87331- 9632 May, Schizoaffective disorder, bipolar type F25.0 ; Impulse disorder, unspecified F63.9 ; Attention deficit hyperactivity disorder (ADHD), inattentive type, 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 and Social anxiety disorder F40.10 [facility] [id number] [place] [address] 45971- 2184 Feb, Schizoaffective disorder, bipolar type F25.0 ; Impulse disorder, unspecified F63.9 ; Attention deficit hyperactivity disorder (ADHD), inattentive type, 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 and Social anxiety disorder F40.10 [facility] [id number] [place] [address] 58528- 6864 Jan, Schizoaffective disorder, bipolar type F25.0 ; Impulse disorder, unspecified F63.9 ; Attention deficit hyperactivity disorder (ADHD), inattentive type, mild F90.0 and Social anxiety disorder F40.10 [place] [id number] [place] [address] 10849- 4541 Jan, [facility] [id number] [place] [address] 34626- 7562 Dec, Schizoaffective disorder, bipolar type F25.0 [place] [id number] [place] [address] 07543- 0120 Dec, Schizoaffective disorder, bipolar type F25.0 ; Impulse disorder, unspecified F63.9 ; Attention deficit hyperactivity disorder (ADHD), inattentive type, 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 and Social anxiety disorder F40.10 [place] [address] [address]654 Nov, Schizoaffective disorder, bipolar type F25.0 ; Impulse disorder, unspecified F63.9 ; Attention deficit hyperactivity disorder (ADHD), inattentive type, mild F90.0 and Social anxiety disorder F40.10 [facility] [address] [address] 0449 Oct, [facility] [id number] [place] [address] 44969- 7385 Oct, Schizoaffective disorder, bipolar type F25.0 [facility] [id number] [place] [address] 58657- 1081 07 Oct, 2016 Other long winder tender (current) drug therapy Z79.899 [place] [id number] [place] [address] 31331- 3859 Oct, Schizoaffective disorder, bipolar type F25.0 ; Impulse disorder, unspecified F63.9 ; Attention deficit hyperactivity disorder (ADHD), predominantly inattentive type F90.0 ; Anxiety F41.9 and Other long-term ( current) drug therapy Z79.899 [facility] [id number] [place] [address] 09429- 3042 Sep, [facility] [id number] [place] [address] 35627- 8550 Jul, Hypercholesterolemia with hyperglyceridemia E78.2 [place] [id number] [place] [address] 27902- 7948 Jul, Schizoaffective disorder, bipolar type F25.0 and Impulse disorder, unspecified F63.9 [facility] [id number] [place] [address] 11601- 0625 May, Hypercholesterolemia with hyperglyceridemia E78.2 ; Impulse disorder, unspecified F63.9 ; Bipolar disorder, current episode mixed, unspecified F31.60 ; Schizoaffective disorder, bipolar type F25.0 and ADD ( attention deficit disorder) F90.0 [place] [id number] [place] [address] 27049- 4456 Apr, [facility] [id number] [place] [address] 77664- 1055 Apr, [facility] [id number] [place] [address] 84530- 5196 Apr, Schizoaffective disorder, bipolar type F25.0 [facility] [id number] [place] [address] 78939- 3934 Apr, [facility] [id number] [place] [address] 83818- 6063 Apr, [facility] [id number] [place] [address] 33389- 2985 Apr, Schizoaffective disorder, bipolar type F25.0 [facility] [address] [address]- 9474 Apr, Schizoaffective disorder, bipolar type F25.0 [facility] [address] [address]- 0295 Dec, [facility] [id number] [place] [address] 53535- 2209 Dec, [facility] [id number] [place] [address] 99327- 3887 Dec, Schizoaffective disorder, bipolar type F25.0 and Other long-term (current) drug therapy Z79.899 [facility] [id number] [place] [address] 81870- 0344 May, ADD (attention deficit disorder) F90.0 [facility] [id number] [place] [address] 27186- 8958 May, ADD (attention deficit disorder) F90.0 [facility] [id number] [place] [address] 61076- 4688 May, Schizoaffective disorder, bipolar type F25.0 and ADD ( attention deficit disorder) F90.0 [facility] [address] [address]- 4525 May, [facility] [address] [address]- 0835 Nov, [facility] [id number] [address]- 6384 Nov, Encounter for long-term (current) use of other medications Z79.899 [facility] [id number] [place] [address] 80096- 2265 Nov, Schizoaffective disorder, bipolar type F25.0 ; Anxiety disorder, unspecified F41.9 ; Impulse disorder, unspecified F63.9 and Encounter for long-term (current) use of other medications Z79.899 [facility] [address] [id number] [place] [address]- 5242 Sep, [facility] [place] [facility] [address] [id number] [place] [address]- 6141 Sep, [facility] [place] [facility] [address] [facility] [id number] [place] [address]- 1767 Aug, [facility] [place] [facility] [address] [id number] [address]- 7042 Jul, [facility] [place] [facility] [address] [id number] [place] [address]- 4138 June, [facility] [place] [facility] [address] [id number] [address]- 7680 May, [facility] [place] [facility] [id number] [place] [address]- 1417 May, [facility] [place] [facility] [id number] [address]- 6286 Apr, [facility] [place] [facility] [id number] [address]- 2186 Apr, [facility] [place] [facility] [id number] [address]- 8907 Mar, [facility] [place] [facility] [id number] [address]- 7476 Mar, [facility] [place] [facility] [address] [facility] [id number] [address]- 8881 Mar, [facility] [place] [facility] [address] [id number] [address]- 9370 Mar, [facility] [place] [facility] [address] [facility] [id number] [address]- 0863 Mar, [facility] [place] [facility] [address] [facility] [id number] [address]- 6442 Mar, [facility] [place] [facility] [address] [id number] [place] [address]- 6287 Feb, [facility] [address] [id number] [place] [address]- 5036 Feb, [facility] [place] [facility] [address] [id number] [place] [address]- 9607 Feb, [facility] [address] [id number] [place] [address]- 1373 Feb, [facility] [place] [facility] [address] [id number] [place] [address]- 9533 Jan, [facility] [address] [id number] [place] [address]- 7072 Jan, [facility] [place] [facility] [address] [id number] [place] [address]- 1084 Jan, [facility] [place] [facility] [address] [id number] [place] [address]- 8289 Jan, [facility] [address] [id number] [place] [address]- 6264 Jan, [facility] [place] [facility] [address] [id number] [place] [address]- 0748 Jan, [facility] [address] [id number] [place] [address]- 5416 Dec, [facility] [place] [facility] [address] [id number] [place] [address]- 4380 Dec, [facility] [place] [facility] [address] [id number] [place] [address]- 8711 Dec, [facility] [place] [facility] [address] [id number] [place] [address]- 6107 Dec, [facility] [place] [facility] [address] [id number] [place] [address]- 3608 Nov, [facility] [place] [facility] [address] [id number] [place] [address]- 7329 Nov, [facility] [place] [facility] [address] [id number] [place] [address]- 2653 Nov, [facility] [place] [facility] [address] [id number] [place] [address]- 6074 Nov, [facility] [place] [facility] [address] [id number] [place] 7433 Nov, [facility] [place] [facility] [address] [id number] [place] [address]- 3552 Nov, [facility] [place] [facility] [address] [id number] [place] [address]- 8091 Nov, [facility] [place] [facility] [address] [id number] [place] [address]- 7527 Nov, [facility] [place] [facility] [address] [id number] [place] [address]- 3130 Oct, [facility] [place] [facility] [address] [id number] [place] [address]- 0297 Oct, [facility] [place] [facility] [address] [id number] [place] [address]- 9569 Oct, [facility] [place] [facility] [address] [id number] [place] [address]- 5132 Oct, [facility] [place] [facility] [address] [id number] [place] [address]- 5501 Sep, [facility] [place] [facility] [address] [id number] [address]- 0794 Sep, [facility] [place] [facility] [address] [id number] [place] [address]- 7375 Aug, [facility] [place] [facility] [address] [id number] [place] [address]- 8834 Aug, [facility] [place] [facility] [address] [id number] [place] [address]- 4248 Jul, [facility] [place] [facility] [address] [id number] [place] [address]- 0933 Jul, [facility] [place] [facility] [address] [id number] [place] [address]- 2110 Jul, [facility] [place] [facility] [address] [id number] [place] [address]- 8832 Jul, [facility] [place] [facility] [address] [id number] [place] [address]- 3385 Jul, [facility] [place] [facility] [address] [id number] [place] [address]- 3171 Jul, [facility] [place] [facility] [address] [id number] [place] [address]- 2903 Jul, [facility] [place] [facility] [address] [id number] [place] [address]- 2447 Jul, [facility] [place] [facility] [address] [id number] [place] [address]- 7326 June, [facility] [place] [facility] [address] [id number] [place] [address]- 8598 June, [facility] [place] [facility] [address] [id number] [place] [address]- 3202 May, [facility] [place] [facility] [address] [id number] [place] [address]- 2392 May, [facility] [place] [facility] [address] [id number] [place] [address]- 6573 May, [facility] [place] [facility] [address] [id number] [place] [address]- 8593 May, [facility] [place] [facility] [address] [id number] [place] [address]- 5973 May, [facility] [place] [facility] [address] [id number] [place] [address]- 8094 Apr, [facility] [place] [facility] [address] [id number] [place] [address]- 2829 Apr, [facility] [place] [facility] [address] [id number] [place] [address]- 5092 Mar, [facility] [address] [id number] [place] [address]- 7823 Mar, [facility] [place] [facility] [address] [id number] [place] [address]- 3594 Feb, [facility] [place] [facility] [address] [id number] [place] [address]- 3784 Feb, [facility] [place] [facility] [address] [id number] [place] [address]- 1050 Jan, [facility] [place] [facility] [address] [id number] [place] [address]- 6768 Jan, [facility] [address] [facility] [id number] [place] [address]- 4603 Jan, [facility] [place] [facility] [address] [id number] [place] [address]- 6296 Jan, [facility] [address] [id number] [place] [address]- 5394 Jan, [facility] [place] [facility] [address] [id number] [place] [address]- 0459 Jan, [facility] [place] [facility] [address] [id number] [place] [address]- 5493 Jan, [facility] [place] [facility] [address] [id number] [place] [address]- 6132 Jan, [facility] [place] [facility] [address] [id number] [place] [address]- 9296 Jan, [facility] [place] [facility] [address] [id number] [place] [address]- 2346 Oct, [facility] [place] [facility] [address] [id number] [place] [address]- 8506 Jul, [facility] [place] [facility] [address] [id number] [address]- 3066 Jul, [facility] [address] [id number] [place] [address]- 3090 Jul, [facility] [address] [id number] [place] [address] 2546 June, [facility] [address] [id number] [place] [address] 2546 May, [facility] [place] [facility] [address] [id number] [address] 2546 Apr, [facility] [address] [id number] [place] [address]- 7365 Apr, [facility] [address] [id number] [place] [address] 2546 Apr, [facility] [address] [id number] [place] [address]- 4026 Mar, [facility] [place] [facility] [address] [id number] [address]- 7029 Mar, [facility] [address] [id number] [address]- 0535 Feb, [facility] [address] [id number] [place] [address] 2546 Feb, [facility] [address] [id number] [address]- 5401 Jan, [facility] [place] [facility] [address] [id number] [address] 2546 Jan, [facility] [place] [facility] [address] [id number] [place] [address]- 2546 Jan, [facility] [place] [facility] [address] [id number] [address] 2546 Jan, [facility] [place] [facility] [address] [id number] [place] [address]- 2546 Jan, [facility] [place] [facility] [address] [id number] [place] [address]- 1305 Dec, [facility] [place] [facility] [address] [id number] [place] [address]- 7784 Dec, [facility] [place] [facility] [address] [id number] [place] [address]- 0715 Nov, [facility] [place] [facility] [address] [id number] [place] [address]- 1368 Nov, [facility] [place] [facility] [address] [id number] [place] [address]- 4681 Nov, [facility] [place] [facility] [address] [id number] [place] [address]- 5549 Nov, [facility] [place] [facility] [address] [id number] [place] 8194 Nov, [facility] [place] [facility] [address] [id number] [place] [address]- 6352 Nov, [facility] [place] [facility] [address] [id number] [place] [address]- 1905 Oct, [facility] [place] [facility] [address] [id number] [place] [address]- 8312 Sep, [facility] [place] [facility] [address] [id number] [place] [address]- 0060 Sep, [facility] [place] [facility] [address] [id number] [place] [address]- 7074 Aug, [facility] [place] [facility] [address] [id number] [place] [address]- 3774 Aug, [facility] [place] [facility] [address] [id number] [place] [address]- 2393 Aug, [facility] [place] [facility] [address] [id number] [place] [address]- 2546 Jul, [facility] [place] [facility] [address] [id number] [place] [address]- 7776 June, [facility] [address] [id number] [place] [address]- 9748 May, [facility] [place] [facility] [address] [id number] [place] [address]- 3077 May, [facility] [place] [facility] [address] [id number] [place] [address]- 6459 14 Apr, 2011 [facility] [place] [facility] [address] [id number] [place] [address]- 9534 Feb, [facility] [place] [facility] [address] [id number] [place] [address]- 0154 Feb, [facility] [place] [facility] [address] [id number] [place] [address]- 0225 26 Jan, 2011 [facility] [place] [facility] [address] [id number] [place] [address] 21 Jan, 2011 [facility] [place] [facility] [address] [id number] [place] [address] 19 Jan, 2011 [facility] [place] [facility] [address] [id number] [place] [address] 16 Jan, 2011 [facility] [place] [facility] [address] [id number] [place] [address] 16 Jan, 2011 [facility] [place] [facility] [address] [id number] [place] [address] 14 Jan, 2011 [facility] [place] [facility] [address] [id number] [place] [address] 14 Jan, 2011 [facility] [place] [facility] [address] [id number] [place] [address] 17 Dec, 2010 [facility] [place] [facility] [address] [id number] [place] [address] 17 Dec, 2010 [facility] [place] [facility] [address] [id number] [place] [address] 18 Nov, 2010 [facility] [place] [facility] [address] [id number] [address] Jan, [facility] [address] [facility] [id number] [place] [address] Dec, [facility] [address] [facility] [id number] [address] Dec, [facility] [address] [facility] [id number] [address] Nov, IMMUNIZATIONS No Known Immunizations SOCIAL HISTORY Never Assessed REASON FOR VISIT Requests return call PLAN OF CARE VITAL SIGNS MEDICATIONS No Known Medications RESULTS No Results PROCEDURES No Known procedures INSTRUCTIONS MEDICATIONS ADMINISTERED No Known Medications MEDICAL (GENERAL) HISTORY Type Description Date Medical History depression Medical History adhd Medical History bipolar Medical History hyperlipidemia Medical History Hx of heart valve dysfunction but says this has resolved Medical History lactose intolerant Hospitalization History [facility] x4, last incident at age 8
--- OUTSIDE RECORDS SUMMARY | 2017-12-14 17:21 | XMS REPORT ---
Author CHIN Good Organization [employer] Address Unknown Phone Unavailable Care Team Providers Care Fiber Machine Tender Name Role Phone CHIN CALZADA CP Unavailable [...] Instructions Start Date End Date Status Dosage Seroquel XR [facility] [address]-63 200 MG Orally Once a day Nov 21, 2014 1 tablet in the evening Results No Known Results Summary Purpose [employer] Submission
--- OUTSIDE RECORDS SUMMARY | 2017-12-14 17:21 | XMS REPORT ---
Author Author GRAY YFN [facility] Address [address] [place] [address] Care Team Providers Care Health Nurse Name Role Phone GRAY, YFN Unavailable PROBLEMS Type Condition ICD9-CM Code [id number] Code Onset Dates Condition Status SNOMED Code Problem ADD (attention deficit disorder) F90.0 Active 237988943 Problem Hypercholesterolemia with hyperglyceridemia E78.2 Active 279987518 Problem Schizoaffective disorder, bipolar type F25.0 Active 13852290 Problem Gastroesophageal reflux disease, esophagitis presence not specified K21.9 Active 516183151 Problem Social anxiety disorder F40.10 Active 01340970 Problem Bipolar disorder, current episode mixed, unspecified F31.60 Active 40536811 Problem Impulse disorder, unspecified F63.9 Active 67958970 Problem Attention deficit hyperactivity disorder (ADHD), predominantly inattentive type F90.0 Active 61590788 Problem Anxiety F41.9 Active 57993206 ALLERGIES Substance Reaction Event Type Date Status Lactose Unknown Drug Allergy Feb, Active Cipro hives Drug Allergy Feb, Active ENCOUNTERS Encounter Location Date Diagnosis [facility] [id number] [place] [address] 91196- 3615 May, Gastroesophageal reflux disease, esophagitis presence not specified K21.9 [facility] [id number] [place] [address] 70256- 9071 May, Schizoaffective disorder, bipolar type F25.0 [facility] [id number] [place] [address] 12734- 6361 May, Schizoaffective disorder, bipolar type F25.0 ; Impulse disorder, unspecified F63.9 ; Attention deficit hyperactivity disorder (ADHD), inattentive type, 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 and Social anxiety disorder F40.10 [facility] [id number], [place] [address] Feb, Schizoaffective disorder, bipolar type F25.0 ; Impulse disorder, unspecified F63.9 ; Attention deficit hyperactivity disorder (ADHD), inattentive type, mild F90.0 and Social anxiety disorder F40.10 [facility] [id number] [place] [address] 20377- 8369 Jan, Schizoaffective disorder, bipolar type F25.0 ; Impulse disorder, unspecified F63.9 ; Attention deficit hyperactivity disorder (ADHD), inattentive type, mild F90.0 and Social anxiety disorder F40.10 [place] [id number] [place] [address] 82431- 1991 Jan, [facility] [id number] [place] [address] 08322- 4752 Dec, Schizoaffective disorder, bipolar type F25.0 [facility] [id number] [place] [address] 88124- 9668 Dec, Schizoaffective disorder, bipolar type F25.0 ; Impulse disorder, unspecified F63.9 ; Attention deficit hyperactivity disorder (ADHD), inattentive type, mild F90.0 and Social anxiety disorder F40.10 [place] [address], [place] [address] Nov, Schizoaffective disorder, bipolar type F25.0 ; Impulse disorder, unspecified F63.9 ; Attention deficit hyperactivity disorder (ADHD), inattentive type, mild F90.0 and Social anxiety disorder F40.10 [place] [address], [place] [address] 6[address] Oct, [facility] [id number] [place] [address] 08065- 5669 Oct, Schizoaffective disorder, bipolar type F25.0 [facility] [id number] [place] [address] 71695- 8665 Oct, Other senior care (current) drug therapy Z79.899 [facility] [id number] [place] [address] 35483- 7449 Oct, Schizoaffective disorder, bipolar type F25.0 ; Impulse disorder, unspecified F63.9 ; Attention deficit hyperactivity disorder (ADHD), predominantly inattentive type F90.0 ; Anxiety F41.9 and Other senior care ( current) drug therapy Z79.899 [facility] [id number] [place] [address] 75917- 7432 Sep, [facility] [id number] [place] [address] 86692- 9274 Jul, Hypercholesterolemia with hyperglyceridemia E78.2 [facility] [id number] [place] [address] 45504- 9070 Jul, Schizoaffective disorder, bipolar type F25.0 and Impulse disorder, unspecified F63.9 [facility] [id number] [place] [address] 04716- 4201 May, Hypercholesterolemia with hyperglyceridemia E78.2 ; Impulse disorder, unspecified F63.9 ; Bipolar disorder, current episode mixed, unspecified F31.60 ; Schizoaffective disorder, bipolar type F25.0 and ADD ( attention deficit disorder) F90.0 [facility] [address], [place] [address]- 4478 Apr, [facility] [id number] [place] [address] 50561- 1170 Apr, [facility] [id number] [place] [address] 16156- 4375 Apr, Schizoaffective disorder, bipolar type F25.0 [facility] [id number] [place] [address] 04418- 9443 Apr, [facility] [id number] [place] [address] 32475- 2725 Apr, [facility] [id number] [place] [address]- 5930 Apr, Schizoaffective disorder, bipolar type F25.0 [facility] [id number] [place] [address] 51384- 3672 Apr, Schizoaffective disorder, bipolar type F25.0 [facility] [address], [place] [address]- 4064 Dec, [facility] [id number] [place] [address] 57604- 1222 Dec, [facility] [id number] [place] [address] 92319- 2836 Dec, Schizoaffective disorder, bipolar type F25.0 and Other senior care (current) drug therapy Z79.899 [facility] [id number] [place] [address] 51550- 9581 May, ADD (attention deficit disorder) F90.0 [facility] [id number] [place] [address] 44739- 4854 May, ADD (attention deficit disorder) F90.0 [facility] [id number] [place] [address] 32268- 5546 May, Schizoaffective disorder, bipolar type F25.0 and ADD ( attention deficit disorder) F90.0 [facility] [address], [place] [address]- 5685 May, [facility] [address], [place] [address]- 1836 Nov, [facility] [id number] [place] [address] 61555- 5670 Nov, Encounter for long-term (current) use of other medications Z79.899 [facility] [address], [place] [address]- 3383 Nov, Schizoaffective disorder, bipolar type F25.0 ; Anxiety disorder, unspecified F41.9 ; Impulse disorder, unspecified F63.9 and Encounter for long-term (current) use of other medications Z79.899 [facility] [id number] [place] [address] 56013- 2644 Sep, [facility] [id number] [place] [address] 24526- 2616 Sep, [facility] [id number] [place] [address] 92263- 5642 Aug, [facility] [id number] [place] [address] 74985- 3162 Jul, [facility] [id number] [place] [address] 29364- 2580 June, [facility] [id number] [place] [address] 59141- 6364 May, [facility] [id number] [place] [address] 86306- 8366 May, [facility] [id number] [place] [address] 58854- 0363 Apr, [facility] [id number] [place] [address] 05367- 6081 Apr, [facility] [id number] [place] [address] 18524- 6807 Mar, [facility] [id number] [place] [address] 65097- 2910 Mar, [facility] [address], [place] [address]- 0009 Mar, [facility] [id number] [place] [address]- 0187 Mar, [facility] [address], [place] [address]- 1193 Mar, [facility] [id number] [place] [address] 75539- 4426 Mar, [facility] [address] [id number] [place] [address]- 2515 Feb, [facility] [place] [facility] [address] [id number] [place] [address]- 3745 Feb, [facility] [place] [facility] [address] [facility] [id number] [place] [address]- 1742 Feb, [facility] [place] [facility] [address] [id number] [place] [address]- 1532 Feb, [facility] [place] [facility] [address] [id number] [place] 2484 Jan, [facility] [place] [facility] [address] [id number] [place] [address]- 5600 Jan, [facility] [place] [facility] [address] [facility] [id number] [place] [address]- 8823 Jan, [facility] [place] [facility] [address] [facility] [id number] [place] [address]- 1993 Jan, [facility] [place] [facility] [id number] [place] [address]- 4694 Jan, [facility] [place] [facility] [address] [facility] [id number] [place] [address]- 9440 Jan, [facility] [place] [facility] [address] [id number] [place] [address]- 0074 Dec, [facility] [place] [facility] [address] [id number], [place] [address]- 2987 Dec, [facility] [place] [facility] [address] [id number] [place] [address]- 7704 Dec, [facility] [place] [facility] [address] [facility] [id number] [place] [address]- 7753 Dec, [facility] [place] [facility] [address] [facility] [id number] [place] [address]- 7528 Nov, [facility] [place] [facility] [address] [id number] [place] [address]- 6516 Nov, [facility] [place] [facility] [address] [id number] [place] 6523 Nov, [facility] [place] [facility] [address] [id number] [place] 8597 Nov, 2013 [facility] [place] [facility] [address] [id number] [place] [address]- 8969 Nov, [facility] [place] [facility] [address] [id number] [place] [address]- 6843 Nov, [facility] [place] [facility] [address] [id number] [place] [address]- 1447 Nov, [facility] [place] [facility] [address] [id number] [place] 1098 Nov, [facility] [place] [facility] [address] [id number] [place] [address]- 1048 Oct, 2013 [facility] [place] [facility] [address] [id number] [place] [address]- 6727 Oct, 2013 [facility] [place] [facility] [address] [id number] [place] [address]- 5679 Oct, 2013 [facility] [place] [facility] [address] [id number] [place] [address]- 4216 Oct, 2013 [facility] [place] [facility] [address] [id number] [place] [address]- 4121 Sep, [facility] [place] [facility] [address] [id number] [place] [address]- 0923 Sep, [facility] [place] [facility] [address] [id number] [place] [address]- 5731 Aug, [facility] [place] [facility] [address] [id number] [place] [address]- 3678 Aug, [facility] [place] [facility] [address] [id number] [place] [address]- 1273 Jul, [facility] [place] [facility] [address] [id number] [place] [address]- 3352 Jul, [facility] [place] [facility] [address] [id number] [place] [address]- 7608 Jul, [facility] [place] [facility] [address] [id number] [place] [address]- 1872 Jul, [facility] [place] [facility] [address] [id number] [place] [address]- 1938 Jul, [facility] [place] [facility] [address] [id number] [place] [address]- 7335 Jul, [facility] [place] [facility] [address] [id number] [place] [address]- 3898 Jul, [facility] [place] [facility] [address] [id number] [place] [address]- 9572 Jul, [facility] [place] [facility] [address] [id number] [place] [address]- 8659 June, [facility] [place] [facility] [address] [id number] [place] [address]- 8263 June, [facility] [place] [facility] [address] [id number] [place] [address]- 1953 May, [facility] [place] [facility] [address] [id number], [place] [address]- 2669 May, [facility] [place] [facility] [address] [id number], [place] [address]- 7202 May, [facility] [place] [facility] [address] [id number] [place] [address]- 7673 May, [facility] [place] [facility] [address] [id number] [place] [address]- 7652 May, [facility] [place] [facility] [address] [id number] [place] [address]- 7082 Apr, [facility] [place] [facility] [address] [id number] [place] [address]- 8930 Apr, [facility] [address] [id number] [place] [address]- 0136 Mar, [facility] [address] [id number] [place] [address]- 4156 Mar, [facility] [address] [id number] [place] [address]- 1015 Feb, [facility] [address] [id number] [place] [address]- 8875 Feb, [facility] [address] [id number] [place] [address]- 8289 Jan, [facility] [address] [id number] [place] [address]- 5052 Jan, [facility] [address] [id number] [place] [address]- 5144 Jan, [facility] [address] [id number] [place] [address]- 9343 Jan, [facility] [address] [facility] [id number] [place] [address]- 9812 Jan, [facility] [address] [facility] [id number] [place] [address]- 9025 Jan, [facility] [address] [id number] [place] [address]- 7376 Jan, [facility] [address] [id number] [place] [address]- 1682 Jan, [facility] [place] [facility] [address] [id number] [place] [address]- 8731 Jan, [facility] [address] [id number] [place] [address]- 2546 18 Oct, 2012 [facility] [address] [id number] [place] [address]- 9497 Jul, [facility] [address] [id number] [place] [address]- 8486 Jul, [facility] [place] [facility] [address] [id number] [place] [address]- 5426 Jul, [facility] [place] [facility] [address] [id number] [place] [address]- 1926 June, [facility] [place] [facility] [address] [id number] [place] [address]- 2546 May, [facility] [address] [id number] [place] [address]- 3206 Apr, [facility] [place] [facility] [address] [id number] [place] [address]- 9136 Apr, [facility] [address] [id number] [place] [address]- 2546 Apr, [facility] [address] [id number] [place] [address]- 6756 Mar, [facility] [place] [facility] [address] [id number] [place] [address]- 7226 Mar, [facility] [address] [facility] [id number] [place] [address]- 3286 Feb, [facility] [place] [facility] [address] [id number] [place] [address]- 2546 Feb, [facility] [place] [facility] [address] [id number], [place] [address]- 0186 Jan, [facility] [place] [facility] [address] [id number] [place] [address]- 9426 Jan, [facility] [place] [facility] [address] [id number] [place] [address]- 0716 Jan, [facility] [place] [facility] [address] [id number] [place] [address]- 2546 Jan, [facility] [place] [facility] [address] [id number] [place] [address]- 9619 Jan, [facility] [place] [facility] [address] [id number] [place] [address]- 4501 Dec, [facility] [place] [facility] [address] [id number] [place] [address]- 1727 Dec, [facility] [place] [facility] [address] [id number] [place] [address]- 9318 Nov, [facility] [place] [facility] [address] [id number] [place] [address]- 3678 Nov, [facility] [place] [facility] [address] [id number] [place] [address]- 6581 Nov, [facility] [place] [facility] [address] [id number] [place] [address]- 4295 Nov, [facility] [place] [facility] [address] [id number] [place] [address]- 7298 Nov, [facility] [place] [facility] [address] [id number] [place] [address]- 7491 Nov, [facility] [place] [facility] [address] [id number] [place] [address]- 2851 Oct, [facility] [place] [facility] [address] [id number] [place] [address]- 2992 Sep, [facility] [place] [facility] [address] [id number] [place] [address]- 2938 Sep, [facility] [place] [facility] [address] [id number] [place] [address]- 4151 Aug, [facility] [place] [facility] [address] [id number] [place] [address]- 4077 Aug, [facility] [place] [facility] [address] [id number] [place] [address]- 2398 Aug, [facility] [place] [facility] [address] [facility] [id number] [place] [address]- 0349 Jul, [facility] [place] [facility] [address] [id number] [place] [address]- 6426 June, [facility] [place] [facility] [address] [id number] [place] [address]- 7880 27 May, 2011 [facility] [place] [facility] [address] [id number] [place] [address]- 8596 May, [facility] [place] [facility] [address] [id number] [place] [address]- 5394 Apr, [facility] [place] [facility] [address] [id number] [place] [address]- 0998 31 Feb, 2011 [facility] [place] [facility] [address] [id number] [place] [address]- 6547 Feb, [facility] [place] [facility] [address] [id number] [place] [address]- 0139 26 Jan, 2011 [facility] [place] [facility] [address] [id number] [place] [address]- 4036 21 Jan, 2011 [facility] [place] [facility] [address] [id number] [place] [address]- 4069 19 Jan, 2011 [facility] [place] [facility] [address] [id number] [place] [address]- 0713 16 Jan, 2011 [facility] [place] [facility] [address] [id number] [place] 3238 16 Jan, 2011 [facility] [place] [facility] [address] [id number] [place] [address]- 1330 14 Jan, 2011 [facility] [place] [facility] [address] [id number] [place] [address]- 9347 14 Jan, 2011 [facility] [place] [facility] [address] [id number] [place] [address]- 9650 17 Dec, 2010 [facility] [place] [facility] [address] [id number] [place] [address]- 1656 17 Dec, 2010 [facility] [place] [facility] [address] [id number] [place] [address]- 6151 Nov, [facility] [address] [facility] [id number] [place] [address]- 4002 Jan, [facility] [address] [facility] [id number], [place] [address]- 2466 Dec, [facility] [address] [facility] [id number], [place] [address]- 2236 Dec, [facility] [address] [facility] [id number], [place] [address]- 0707 Nov, IMMUNIZATIONS No Known Immunizations SOCIAL HISTORY Never Assessed REASON FOR VISIT f/u-Charly WOMACK PLAN OF CARE Activity Details Follow Up 2 Months Reason: f/u VITAL SIGNS Height 65 in 2017 Weight 189.0 lbs 2017 Heart Rate 76 bpm 2017 Respiratory Rate 18 2017 BMI 31.45 kg/m2 2017 Blood pressure systolic 122 mmHg 2017 Blood pressure diastolic 68 mmHg 2017 MEDICATIONS Medication Instructions Dosage Frequency Start Date End Date Duration Status Zoloft 50 mg Orally Once a day 1 tablet 24h 22 Dec, 2016 Active Latuda 40 mg Orally at suppertime 1 tablet with food Active [place] Carbonate 300 MG Orally twice a day 2 capsules 12h 30 days Active RESULTS No Results PROCEDURES No Known procedures INSTRUCTIONS MEDICATIONS ADMINISTERED No Known Medications MEDICAL (GENERAL) HISTORY Type Description Date Medical History depression Medical History adhd Medical History bipolar Medical History hyperlipidemia Medical History Hx of heart valve dysfunction but says this has resolved Medical History lactose intolerant Hospitalization History [facility] x4, last incident at age 8
--- OUTSIDE RECORDS SUMMARY | 2017-12-14 17:21 | XMS REPORT ---
Author ALESHIA Aviles [facility] eClinicalWorks Address Unknown Phone Unavailable Care Team Providers Care Emd Teacher Name Role Phone ALESHIA BERNAL CP Unavailable Allergies No Known Allergies Problems Problem Type Condition Code Onset Dates Condition Status Problem ADD (attention deficit disorder) F90.0 Active Problem Impulse control disorder, unspecified 312.30 Active Problem Schizoaffective disorder, bipolar type F25.0 Active Problem Bipolar I disorder, most recent episode (or current) mixed, unspecified 296.60 Active Medications Medication Code System Code Instructions Start Date End Date Status Dosage Latuda [facility] [address]-59 20 mg Orally Once a day Dec 17, 2015 1 tablet with food Results No Known Results Summary Purpose eClinicalWorks Submission
--- OUTSIDE RECORDS SUMMARY | 2017-12-14 17:22 | XMS REPORT ---
Author Author GRAY YFN [facility] Address [address] [place] [address] Care Team Providers Care Broke Worker Name Role Phone GRAYYFN Unavailable PROBLEMS Type Condition ICD9-CM Code OMT33-BS Code Onset Dates Condition Status SNOMED Code Problem Schizoaffective disorder, bipolar type F25.0 Active 79051543 Problem ADD (attention deficit disorder) F90.0 Active 891791653 Problem Social anxiety disorder F40.10 Active 35887099 Problem Attention deficit hyperactivity disorder (ADHD), predominantly inattentive type F90.0 Active 54456431 Problem Impulse disorder, unspecified F63.9 Active 88962208 Problem Hypercholesterolemia with hyperglyceridemia E78.2 Active 017822155 Problem Anxiety F41.9 Active 04906286 Problem Bipolar disorder, current episode mixed, unspecified F31.60 Active 12580516 ALLERGIES No Information ENCOUNTERS Encounter Location Date Diagnosis [facility], [place] [id number] [place] [address] 09260- 0216 Aug, [facility], [place] [id number] [place] [address] 25552- 2115 May, [facility], [place] [id number] [place] [address] 24123- 6255 May, Schizoaffective disorder, bipolar type F25.0 ; Impulse disorder, unspecified F63.9 ; Attention deficit hyperactivity disorder (ADHD), inattentive type, mild F90.0 and Social anxiety disorder F40.10 [facility], [place] [id number] [place] [address] 07610- 4829 Feb, Schizoaffective disorder, bipolar type F25.0 ; Impulse disorder, unspecified F63.9 ; Attention deficit hyperactivity disorder (ADHD), inattentive type, mild F90.0 and Social anxiety disorder F40.10 [facility], [place] [id number] [address] 13 Jan, 2017 Schizoaffective disorder, bipolar type F25.0 ; Impulse disorder, unspecified F63.9 ; Attention deficit hyperactivity disorder (ADHD), inattentive type, mild F90.0 and Social anxiety disorder F40.10 [facility], [place] [id number] [address] 3[address] 11 Jan, 2017 [facility], [place] [id number] [place] [address] 88709- 9219 Dec, Schizoaffective disorder, bipolar type F25.0 [place] [id number] [place] [address] 18459- 1773 Dec, Schizoaffective disorder, bipolar type F25.0 ; Impulse disorder, unspecified F63.9 ; Attention deficit hyperactivity disorder (ADHD), inattentive type, mild F90.0 and Social anxiety disorder F40.10 [place] [id number] [address] Nov, Schizoaffective disorder, bipolar type F25.0 ; Impulse disorder, unspecified F63.9 ; Attention deficit hyperactivity disorder (ADHD), inattentive type, mild F90.0 and Social anxiety disorder F40.10 [place] [address] [address] 6[address] Oct, [place] [address] [address] 2322 Oct, Schizoaffective disorder, bipolar type F25.0 [facility], [place] [address] [address] 2491 Oct, 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 [facility], [place] [address] [address] 9954 Oct, Schizoaffective disorder, bipolar type F25.0 ; Impulse disorder, unspecified F63.9 ; Attention deficit hyperactivity disorder (ADHD), predominantly inattentive type F90.0 ; Anxiety F41.9 and Other mcc ( current) drug therapy Z79.899 [facility], [place] [id number] [place] [address] 62162- 3648 Sep, [facility] [place] [id number] [place] [address] 60781- 2457 Jul, Hypercholesterolemia with hyperglyceridemia E78.2 [facility], [place] [id number] [place] [address] 49449- 6790 Jul, Schizoaffective disorder, bipolar type F25.0 and Impulse disorder, unspecified F63.9 [place] [id number] [place] [address] 36110- 1858 May, Hypercholesterolemia with hyperglyceridemia E78.2 ; Impulse disorder, unspecified F63.9 ; Bipolar disorder, current episode mixed, unspecified F31.60 ; Schizoaffective disorder, bipolar type F25.0 and ADD ( attention deficit disorder) F90.0 [facility], [place] [id number] [place] [address] 66728- 6642 Apr, [facility], [place] [id number] [place] [address] 81224- 8779 Apr, [facility], [place] [id number] [place] [address] 37793- 8027 Apr, Schizoaffective disorder, bipolar type F25.0 [facility], [place] [id number] [place] [address] 28874- 8342 Apr, [facility], [place] [id number] [place] [address] 95172- 9306 Apr, [facility], [place] [id number] [place] [address] 08599- 4442 Apr, Schizoaffective disorder, bipolar type F25.0 [facility], [place] [id number] [place] [address] 46413- 8586 Apr, Schizoaffective disorder, bipolar type F25.0 [facility], [place] [address], [place] [address]- 4536 Dec, [facility], [place] [id number] [place] [address] 61711- 3837 Dec, [facility], [place] [id number] [place] [address] 74607- 4687 Dec, Schizoaffective disorder, bipolar type F25.0 and Other mcc (current) drug therapy Z79.899 [facility], [place] [id number] [place] [address] 45430- 2704 May, ADD (attention deficit disorder) F90.0 [facility], [place] [id number] [place] [address] 35279- 2587 May, ADD (attention deficit disorder) F90.0 [facility], [place] [id number] [place] [address] 02033- 5154 May, Schizoaffective disorder, bipolar type F25.0 and ADD ( attention deficit disorder) F90.0 [facility], [place] [id number] [place] [address] 67052- 1083 May, [facility], [place] [id number] [place] [address] 02912- 6181 Nov, [facility], [place] [address] [place] [address] 20094- 8899 Nov, Encounter for long-term (current) use of other medications Z79.899 [facility], [place] [address] [place] [address] 65749- 7495 Nov, Schizoaffective disorder, bipolar type F25.0 ; Anxiety disorder, unspecified F41.9 ; Impulse disorder, unspecified F63.9 and Encounter for long-term (current) use of other medications Z79.899 [facility], [place] [address] [address]- 3951 Sep, [facility] [place] [facility] [address] [id number] [place] [address]- 6199 Sep, [facility] [place] [facility] [address] [id number] [place] [address]- 7387 Aug, [facility] [place] [facility] [address] [id number] [place] [address]- 1692 Jul, [facility] [place] [facility] [address] [id number] [place] [address]- 5711 June, [facility] [place] [facility] [address] [id number] [place] [address]- 5857 May, [facility] [place] [facility] [address] [id number] [place] [address]- 6383 May, [facility] [place] [facility] [address] [facility] [id number] [place] [address]- 5314 Apr, [facility] [place] [facility] [address] [facility] [id number] [place] [address]- 4487 Apr, [facility] [place] [facility] [address] [id number] [place] [address]- 9813 Mar, [facility] [place] [facility] [address] [facility] [id number] [place] [address]- 2703 Mar, [facility] [place] [facility] [address] [facility] [id number] [place] [address]- 0167 Mar, [facility] [place] [facility] [address] [facility] [id number] [place] [address]- 0581 Mar, [facility] [place] [facility] [address] [facility] [id number] [place] 7083 Mar, [facility] [place] [facility] [address] [id number] [place] [address]- 2214 Mar, [facility] [place] [facility] [address] [facility] [id number] [place] [address]- 5978 Feb, [facility] [place] [facility] [address] [facility] [id number] [place] [address]- 2662 Feb, [facility] [place] [facility] [address] [id number] [place] [address]- 9338 Feb, [facility] [place] [facility] [address] [id number] [place] [address]- 2035 Feb, [facility] [place] [facility] [address] [id number] [place] [address]- 1657 Jan, [facility] [place] [facility] [address] [id number] [place] [address]- 0618 Jan, [facility] [place] [facility] [address] [id number] [place] [address]- 4862 Jan, [facility] [place] [facility] [address] [id number] [place] [address]- 4195 Jan, [facility] [place] [facility] [address] [id number] [place] [address]- 6879 Jan, [facility] [place] [facility] [address] [id number] [place] [address]- 7431 Jan, [facility] [place] [facility] [address] [id number] [place] [address]- 5406 Dec, [facility] [place] [facility] [address] [id number] [place] [address]- 8220 Dec, [facility] [place] [facility] [address] [id number] [address]- 9822 Dec, [facility] [place] [facility] [address] [id number], [place] [address]- 2397 Dec, [facility] [place] [facility] [address] [id number] [place] [address]- 4847 Nov, [facility] [place] [facility] [address] [id number] [place] [address]- 4967 Nov, [facility] [place] [facility] [address] [id number] [place] [address]- 7814 Nov, [facility] [place] [facility] [address] [id number] [place] [address]- 5253 Nov, [facility] [place] [facility] [address] [id number] [place] [address]- 9739 Nov, [facility] [place] [facility] [address] [id number] [place] [address]- 7897 Nov, [facility] [place] [facility] [address] [id number] [place] [address]- 6554 Nov, [facility] [place] [facility] [address] [id number] [place] [address]- 1350 Nov, [facility] [place] [facility] [address] [id number] [place] 2955 Oct, 2013 [facility] [place] [facility] [address] [id number] [place] [address]- 7806 Oct, 2013 [facility] [place] [facility] [address] [id number] [place] [address]- 0972 Oct, 2013 [facility] [place] [facility] [address] [id number] [place] [address]- 8272 Oct, [facility] [place] [facility] [address] [id number] [place] [address]- 9984 Sep, [facility] [place] [facility] [address] [id number] [place] [address]- 2784 Sep, [facility] [place] [facility] [address] [id number] [place] [address]- 3387 Aug, [facility] [place] [facility] [address] [id number] [place] [address]- 8406 Aug, [facility] [place] [facility] [address] [id number] [place] [address]- 4214 Jul, [facility] [place] [facility] [address] [id number] [place] [address]- 1214 Jul, [facility] [place] [facility] [address] [id number] [place] [address]- 1440 Jul, [facility] [place] [facility] [address] [id number] [place] [address]- 3017 Jul, [facility] [place] [facility] [address] [id number] [place] [address]- 0646 Jul, [facility] [place] [facility] [address] [id number] [place] [address]- 5749 Jul, [facility] [place] [facility] [address] [id number] [place] [address]- 2820 Jul, [facility] [place] [facility] [address] [id number] [place] [address]- 4214 Jul, [facility] [place] [facility] [address] [id number] [place] [address]- 3333 June, [facility] [place] [facility] [address] [id number] [place] [address]- 8232 June, [facility] [place] [facility] [address] [id number] [place] [address]- 4677 May, [facility] [place] [facility] [address] [id number] [place] [address]- 2733 May, [facility] [place] [facility] [address] [id number] [place] [address]- 1745 May, [facility] [place] [facility] [address] [id number] [place] [address]- 5478 May, [facility] [place] [facility] [address] [id number] [place] [address]- 4253 May, [facility] [place] [facility] [address] [id number] [place] [address]- 9197 Apr, [facility] [place] [facility] [address] [id number] [place] [address]- 7177 Apr, [facility] [place] [facility] [address] [id number] [place] [address]- 2038 Mar, [facility] [place] [facility] [address] [id number] [place] [address]- 6793 2013 [facility] [address] [id number] [place] [address]- 8108 10 Feb, 2013 [facility] [place] [facility] [address] [id number] [place] [address]- 2662 10 Feb, 2013 [facility] [address] [facility] [id number] [place] [address]- 6720 Jan, [facility] [place] [facility] [address] [id number] [place] [address]- 5601 Jan, [facility] [address] [id number] [place] [address]- 7164 Jan, [facility] [place] [facility] [address] [id number] [place] [address]- 4001 Jan, [facility] [address] [facility] [id number] [place] [address]- 1946 Jan, [facility] [place] [facility] [address] [id number] [place] [address]- 7067 Jan, [facility] [place] [facility] [address] [id number] [place] [address]- 8080 Jan, [facility] [place] [facility] [address] [facility] [id number] [place] [address]- 9062 Jan, [facility] [place] [facility] [address] [id number] [place] [address]- 5077 Jan, [facility] [place] [facility] [address] [id number], [place] [address]- 7700 Oct, [facility] [place] [facility] [address] [id number] [place] [address]- 3970 Jul, [facility] [place] [facility] [address] [id number] [place] [address]- 9656 18 Jul, 2012 [facility] [place] [facility] [address] [id number], [place] [address]- 8858 14 Jul, 2012 [facility] [place] [facility] [address] [id number] [place] [address]- 2546 June, [facility] [address] [id number] [place] [address]- 0826 May, [facility] [place] [facility] [address] [id number] [place] [address]- 2546 Apr, [facility] [place] [facility] [address] [id number] [place] [address]- 2546 Apr, [facility] [address] [id number] [place] [address]- 2543 Apr, [facility] [place] [facility] [address] [id number] [place] [address]- 2146 Mar, [facility] [address] [id number] [place] [address]- 6925 Mar, [facility] [address] [id number] [place] [address]- 7717 Feb, [facility] [address] [id number] [place] [address]- 7578 Feb, [facility] [address] [id number] [place] [address]- 7329 Jan, [facility] [address] [id number] [place] [address]- 7256 Jan, [facility] [place] [facility] [address] [id number] [place] [address]- 2546 Jan, [facility] [place] [facility] [address] [id number] [place] [address]- 2546 Jan, [facility] [place] [facility] [address] [id number] [place] [address]- 2546 Jan, [facility] [place] [facility] [address] [id number] [place] [address]- 2546 Dec, [facility] [place] [facility] [address] [id number] [place] [address]- 3130 Dec, [facility] [place] [facility] [address] [id number] [place] [address]- 8944 Nov, [facility] [place] [facility] [address] [id number] [place] [address]- 2006 Nov, [facility] [place] [facility] [address] [id number] [place] [address]- 7720 Nov, [facility] [place] [facility] [address] [id number] [place] 5173 Nov, [facility] [place] [facility] [address] [id number] [place] [address]- 0196 Nov, [facility] [place] [facility] [address] [id number] [place] [address]- 7004 Nov, [facility] [place] [facility] [address] [id number] [place] [address]- 3954 Oct, [facility] [place] [facility] [address] [id number] [place] [address]- 8770 Sep, [facility] [place] [facility] [address] [id number] [place] [address]- 7584 Sep, [facility] [place] [facility] [address] [id number] [place] [address]- 2875 Aug, [facility] [place] [facility] [address] [id number] [place] [address]- 3730 Aug, [facility] [place] [facility] [address] [id number] [place] [address]- 1848 Aug, [facility] [place] [facility] [address] [id number] [place] [address]- 3929 Jul, [facility] [place] [facility] [address] [id number] [place] [address]- 7947 June, [facility] [place] [facility] [address] [id number] [place] [address]- 8774 May, [facility] [place] [facility] [address] [id number] [place] [address]- 6901 10 May, 2011 [facility] [address] [id number] [place] [address]- 0531 14 Apr, 2011 [facility] [address] [id number] [place] [address]- 9706 31 Feb, 2011 [facility] [address] [id number] [place] [address]- 7565 17 Feb, 2011 [facility] [address] [id number] [place] [address]- 9473 26 Jan, 2011 [facility] [address] [id number] [place] [address]- 6127 21 Jan, 2011 [facility] [address] [id number] [place] [address]- 9768 19 Jan, 2011 [facility] [address] [id number] [place] [address]- 0123 16 Jan, 2011 [facility] [address] [id number] [place] [address]- 3705 16 Jan, 2011 [facility] [address] [id number] [place] [address]- 3989 14 Jan, 2011 [facility] [address] [id number] [place] [address]- 0779 14 Jan, 2011 [facility] [address] [id number] [place] [address]- 0759 17 Dec, 2010 [facility] [address] [id number] [place] [address]- 4508 17 Dec, 2010 [facility] [place] [facility] [address] [id number] [place] [address]- 2909 18 Nov, 2010 [facility] [place] [facility] [address] [id number] [place] [address]- 2546 10 Jan, 2010 [facility] [address] [id number] [place] [address]- 1402 Dec, [facility] [place] [address] [facility] [id number] [place] [address]- 2966 Dec, [facility] [place] [address] [facility] [id number] [place] [address]- 2956 Nov, IMMUNIZATIONS No Known Immunizations SOCIAL HISTORY Never Assessed REASON FOR VISIT PLAN OF CARE VITAL SIGNS MEDICATIONS Unknown Medications RESULTS No Results PROCEDURES No Known procedures INSTRUCTIONS MEDICATIONS ADMINISTERED No Known Medications MEDICAL (GENERAL) HISTORY Type Description Date Medical History depression Medical History adhd Medical History bipolar Medical History hyperlipidemia Medical History Hx of heart valve dysfunction but says this has resolved Medical History lactose intolerant Hospitalization History [facility] x4, last incident at age 8
--- OUTSIDE RECORDS SUMMARY | 2017-12-14 17:22 | XMS REPORT ---
Author Author GRAY YFN [facility] Address [address] [place] [address] Care Team Providers Care Golf Ball Winder Name Role Phone GRAYYFN Unavailable PROBLEMS Type Condition ICD9-CM Code OGY10-XO Code Onset Dates Condition Status SNOMED Code Problem Schizoaffective disorder, bipolar type F25.0 Active 75720350 Problem ADD (attention deficit disorder) F90.0 Active 121007838 Problem Social anxiety disorder F40.10 Active 03012102 Problem Attention deficit hyperactivity disorder (ADHD), predominantly inattentive type F90.0 Active 02462015 Problem Impulse disorder, unspecified F63.9 Active 69326125 Problem Hypercholesterolemia with hyperglyceridemia E78.2 Active 241493563 Problem Anxiety F41.9 Active 74761505 Problem Bipolar disorder, current episode mixed, unspecified F31.60 Active [id number] ALLERGIES No Information ENCOUNTERS Encounter Location Date Diagnosis [facility] [id number] [place] [address] 99124- 6985 Aug, [facility] [id number] [place] [address] 27766- 4521 May, [facility] [id number] [place] [address] 21765- 2728 May, Schizoaffective disorder, bipolar type F25.0 ; Impulse disorder, unspecified F63.9 ; Attention deficit hyperactivity disorder (ADHD), inattentive type, mild F90.0 and Social anxiety disorder F40.10 [facility] [id number] [place] [address] 48373- 6624 Feb, Schizoaffective disorder, bipolar type F25.0 ; Impulse disorder, unspecified F63.9 ; Attention deficit hyperactivity disorder (ADHD), inattentive type, mild F90.0 and Social anxiety disorder F40.10 [facility] [address], [place] [address] 13 Jan, 2017 Schizoaffective disorder, bipolar type F25.0 ; Impulse disorder, unspecified F63.9 ; Attention deficit hyperactivity disorder (ADHD), inattentive type, mild F90.0 and Social anxiety disorder F40.10 [facility] [address] [address] 11 Jan, 2017 [facility] [id number] [place] [address] 20512- 6209 Dec, Schizoaffective disorder, bipolar type F25.0 [place] [id number] [place] [address] 03138- 6060 Dec, Schizoaffective disorder, bipolar type F25.0 ; Impulse disorder, unspecified F63.9 ; Attention deficit hyperactivity disorder (ADHD), inattentive type, mild F90.0 and Social anxiety disorder F40.10 [place] [id number] [address] 8[address] Nov, Schizoaffective disorder, bipolar type F25.0 ; Impulse disorder, unspecified F63.9 ; Attention deficit hyperactivity disorder (ADHD), inattentive type, mild F90.0 and Social anxiety disorder F40.10 [place] [address] [address] 0067 Oct, [place] [address] [address] 1987 Oct, Schizoaffective disorder, bipolar type F25.0 [facility] [address] [address] 2146 Oct, Other director of surgery (current) drug therapy Z79.899 [facility] [address] [address] 8587 Oct, Schizoaffective disorder, bipolar type F25.0 ; Impulse disorder, unspecified F63.9 ; Attention deficit hyperactivity disorder (ADHD), predominantly inattentive type F90.0 ; Anxiety F41.9 and Other long-term ( current) drug therapy Z79.899 [facility] [id number] [place] [address] 01656- 4749 Sep, [facility] [id number] [place] [address] 48833- 1332 Jul, Hypercholesterolemia with hyperglyceridemia E78.2 [facility] [id number] [place] [address] 89335- 0941 Jul, Schizoaffective disorder, bipolar type F25.0 and Impulse disorder, unspecified F63.9 [place] [id number] [place] [address] 26651- 8827 May, Hypercholesterolemia with hyperglyceridemia E78.2 ; Impulse disorder, unspecified F63.9 ; Bipolar disorder, current episode mixed, unspecified F31.60 ; Schizoaffective disorder, bipolar type F25.0 and ADD ( attention deficit disorder) F90.0 [facility] [id number] [place] [address] 86650- 1663 Apr, [facility] [id number] [place] [address] 31252- 3216 Apr, [facility] [id number] [place] [address] 56992- 2939 Apr, Schizoaffective disorder, bipolar type F25.0 [facility] [id number] [place] [address] 35052- 3915 Apr, [facility] [id number] [place] [address] 99052- 2177 Apr, [facility] [id number] [place] [address] 86564- 4880 Apr, Schizoaffective disorder, bipolar type F25.0 [facility] [id number] [place] [address] 59391- 9629 Apr, Schizoaffective disorder, bipolar type F25.0 [facility] [address] [address]- 3348 Dec, [facility] [id number] [place] [address] 20288- 7563 Dec, [facility] [id number] [place] [address] 55165- 1359 Dec, Schizoaffective disorder, bipolar type F25.0 and Other long-term (current) drug therapy Z79.899 [facility] [id number] [place] [address] 03962- 9663 May, ADD (attention deficit disorder) F90.0 [facility] [id number] [place] [address] 54415- 4404 May, ADD (attention deficit disorder) F90.0 [facility] [id number] [place] [address] 22118- 9645 May, Schizoaffective disorder, bipolar type F25.0 and ADD ( attention deficit disorder) F90.0 [facility] [address] [place] [address] 16880- 4434 May, [facility] [address] [place] [address] 90085- 5839 Nov, [facility] [address] [place] [address] 12146- 1150 Nov, Encounter for long-term (current) use of other medications Z79.899 [facility] [address] [place] [address] 43350- 8848 Nov, Schizoaffective disorder, bipolar type F25.0 ; Anxiety disorder, unspecified F41.9 ; Impulse disorder, unspecified F63.9 and Encounter for long-term (current) use of other medications Z79.899 [facility] [address] [address]- 2168 Sep, [facility] [place] [facility] [address] [id number] [place] [address]- 7305 Sep, [facility] [place] [facility] [address] [id number] [place] [address]- 5867 Aug, [facility] [place] [facility] [address] [id number] [place] [address]- 1940 Jul, [facility] [place] [facility] [address] [id number] [place] [address]- 4790 June, [facility] [place] [facility] [address] [id number] [place] [address]- 9480 May, [facility] [place] [facility] [address] [id number] [place] [address]- 9773 May, [facility] [place] [facility] [address] [facility] [id number] [place] [address]- 2715 Apr, [facility] [place] [facility] [address] [facility] [id number] [place] [address]- 1901 Apr, [facility] [place] [facility] [address] [id number] [place] [address]- 3079 Mar, [facility] [place] [facility] [address] [facility] [id number] [place] [address]- 6929 Mar, [facility] [place] [facility] [address] [facility] [id number] [place] [address]- 0940 Mar, [facility] [place] [facility] [address] [facility] [id number] [place] [address]- 7723 Mar, [facility] [place] [facility] [address] [facility] [id number] [place] 8604 Mar, [facility] [place] [facility] [address] [id number] [place] [address]- 0817 Mar, [facility] [place] [facility] [address] [facility] [id number] [place] [address]- 8088 Feb, [facility] [place] [facility] [address] [facility] [id number] [place] [address]- 1356 Feb, [facility] [place] [facility] [address] [id number] [place] [address]- 0081 Feb, [facility] [place] [facility] [address] [id number] [place] [address]- 2112 Feb, [facility] [place] [facility] [address] [id number] [place] [address]- 9269 Jan, [facility] [place] [facility] [address] [id number] [place] [address]- 2051 Jan, [facility] [place] [facility] [address] [id number] [place] [address]- 3853 Jan, [facility] [place] [facility] [address] [id number] [place] [address]- 4340 Jan, [facility] [place] [facility] [address] [id number] [place] [address]- 5731 Jan, [facility] [place] [facility] [address] [id number] [place] [address]- 4770 Jan, [facility] [place] [facility] [address] [id number] [place] [address]- 2417 Dec, [facility] [place] [facility] [address] [id number] [place] [address]- 5019 Dec, [facility] [place] [facility] [address] [id number] [address]- 9021 Dec, [facility] [place] [facility] [address] [id number] [address]- 8565 Dec, [facility] [place] [facility] [address] [id number] [place] [address]- 2569 Nov, [facility] [place] [facility] [address] [id number] [place] [address]- 1758 Nov, [facility] [place] [facility] [address] [id number] [place] [address]- 9081 Nov, [facility] [place] [facility] [address] [id number] [place] [address]- 1312 Nov, [facility] [place] [facility] [address] [id number] [place] [address]- 7971 Nov, [facility] [place] [facility] [address] [id number] [place] [address]- 0938 Nov, [facility] [place] [facility] [address] [id number] [place] [address]- 6542 Nov, [facility] [place] [facility] [address] [id number] [place] [address]- 4301 Nov, [facility] [place] [facility] [address] [id number] [place] 2916 Oct, 2013 [facility] [place] [facility] [address] [id number] [place] [address]- 8887 Oct, 2013 [facility] [place] [facility] [address] [id number] [place] [address]- 8748 Oct, 2013 [facility] [place] [facility] [address] [id number] [place] [address]- 8741 Oct, [facility] [place] [facility] [address] [id number] [place] [address]- 4779 Sep, [facility] [place] [facility] [address] [id number] [place] [address]- 5410 Sep, [facility] [place] [facility] [address] [id number] [place] [address]- 3110 Aug, [facility] [place] [facility] [address] [id number] [place] [address]- 7259 Aug, [facility] [place] [facility] [address] [id number] [place] [address]- 3312 Jul, [facility] [place] [facility] [address] [id number] [place] [address]- 2965 Jul, [facility] [place] [facility] [address] [id number] [place] [address]- 9932 Jul, [facility] [place] [facility] [address] [id number] [place] [address]- 9353 Jul, [facility] [place] [facility] [address] [id number] [place] [address]- 1039 Jul, [facility] [place] [facility] [address] [id number] [place] [address]- 7268 Jul, [facility] [place] [facility] [address] [id number] [place] [address]- 2843 Jul, [facility] [place] [facility] [address] [id number] [place] [address]- 2989 Jul, [facility] [place] [facility] [address] [id number] [place] [address]- 0210 June, [facility] [place] [facility] [address] [id number] [place] [address]- 5846 June, [facility] [place] [facility] [address] [id number] [place] [address]- 5712 May, [facility] [place] [facility] [address] [id number] [place] [address]- 7591 May, [facility] [place] [facility] [address] [id number] [place] [address]- 2734 May, [facility] [place] [facility] [address] [id number] [place] [address]- 7951 May, [facility] [place] [facility] [address] [id number] [place] [address]- 3818 May, [facility] [place] [facility] [address] [id number] [place] [address]- 2577 Apr, [facility] [place] [facility] [address] [id number] [place] [address]- 1803 Apr, [facility] [place] [facility] [address] [id number] [place] [address]- 1593 Mar, [facility] [place] [facility] [address] [id number] [place] [address]- 8446 2013 [facility] [address] [id number] [place] [address]- 8845 10 Feb, 2013 [facility] [place] [facility] [address] [id number] [place] [address]- 5864 10 Feb, 2013 [facility] [address] [facility] [id number] [place] [address]- 7250 Jan, [facility] [place] [facility] [address] [id number] [place] [address]- 0529 Jan, [facility] [address] [id number] [place] [address]- 7842 Jan, [facility] [place] [facility] [address] [id number] [place] [address]- 6570 Jan, [facility] [address] [facility] [id number] [place] [address]- 0699 Jan, [facility] [place] [facility] [address] [id number] [place] [address]- 6330 Jan, [facility] [place] [facility] [address] [id number] [place] [address]- 8558 Jan, [facility] [place] [facility] [address] [facility] [id number] [place] [address]- 0587 Jan, [facility] [place] [facility] [address] [id number] [place] [address]- 7757 Jan, [facility] [place] [facility] [address] [id number], [place] [address]- 8377 Oct, [facility] [place] [facility] [address] [id number] [place] [address]- 6700 Jul, [facility] [place] [facility] [address] [id number] [place] [address]- 5676 18 Jul, 2012 [facility] [place] [facility] [address] [id number], [place] [address]- 8470 14 Jul, 2012 [facility] [place] [facility] [address] [id number] [place] [address]- 2546 June, [facility] [address] [id number] [place] [address]- 4716 May, [facility] [place] [facility] [address] [id number] [place] [address]- 2546 Apr, [facility] [place] [facility] [address] [id number] [place] [address]- 2546 Apr, [facility] [address] [id number] [place] [address]- 2549 Apr, [facility] [place] [facility] [address] [id number] [place] [address]- 3316 Mar, [facility] [address] [id number] [place] [address]- 4275 Mar, [facility] [address] [id number] [place] [address]- 1224 Feb, [facility] [address] [id number] [place] [address]- 6265 Feb, [facility] [address] [id number] [place] [address]- 6257 Jan, [facility] [address] [id number] [place] [address]- 0296 Jan, [facility] [place] [facility] [address] [id number] [place] [address]- 2546 Jan, [facility] [place] [facility] [address] [id number] [place] [address]- 2546 Jan, [facility] [place] [facility] [address] [id number] [place] [address]- 2546 Jan, [facility] [place] [facility] [address] [id number] [place] [address]- 2546 Dec, [facility] [place] [facility] [address] [id number] [place] [address]- 9875 Dec, [facility] [place] [facility] [address] [id number] [place] [address]- 8130 Nov, [facility] [place] [facility] [address] [id number] [place] [address]- 8242 Nov, [facility] [place] [facility] [address] [id number] [place] [address]- 4459 Nov, [facility] [place] [facility] [address] [id number] [place] 4096 Nov, [facility] [place] [facility] [address] [id number] [place] [address]- 4959 Nov, [facility] [place] [facility] [address] [id number] [place] [address]- 3670 Nov, [facility] [place] [facility] [address] [id number] [place] [address]- 1282 Oct, [facility] [place] [facility] [address] [id number] [place] [address]- 0013 Sep, [facility] [place] [facility] [address] [id number] [place] [address]- 7534 Sep, [facility] [place] [facility] [address] [id number] [place] [address]- 3176 Aug, [facility] [place] [facility] [address] [id number] [place] [address]- 7157 Aug, [facility] [place] [facility] [address] [id number] [place] [address]- 1848 Aug, [facility] [place] [facility] [address] [id number] [place] [address]- 9449 Jul, [facility] [place] [facility] [address] [id number] [place] [address]- 0473 June, [facility] [place] [facility] [address] [id number] [place] [address]- 2760 May, [facility] [place] [facility] [address] [id number] [place] [address]- 7434 10 May, 2011 [facility] [address] [id number] [place] [address]- 9974 14 Apr, 2011 [facility] [address] [id number] [place] [address]- 9926 31 Feb, 2011 [facility] [address] [id number] [place] [address]- 5429 17 Feb, 2011 [facility] [address] [id number] [place] [address]- 3343 26 Jan, 2011 [facility] [address] [id number] [place] [address]- 5386 21 Jan, 2011 [facility] [address] [id number] [place] [address]- 2001 19 Jan, 2011 [facility] [address] [id number] [place] [address]- 1550 16 Jan, 2011 [facility] [address] [id number] [place] [address]- 9142 16 Jan, 2011 [facility] [address] [id number] [place] [address]- 4667 14 Jan, 2011 [facility] [address] [id number] [place] [address]- 2864 14 Jan, 2011 [facility] [address] [id number] [place] [address]- 5662 17 Dec, 2010 [facility] [address] [id number] [place] [address]- 0337 17 Dec, 2010 [facility] [place] [facility] [address] [id number] [place] [address]- 0217 18 Nov, 2010 [facility] [place] [facility] [address] [id number] [place] [address]- 2546 10 Jan, 2010 [facility] [address] [id number] [place] [address]- 6882 Dec, [facility] [address] [facility] [id number] [place] [address]- 9716 Dec, [facility] [address] [facility] [id number] [place] [address]- 6946 Nov, IMMUNIZATIONS No Known Immunizations SOCIAL HISTORY Never Assessed REASON FOR VISIT Lab (walk-in) PLAN OF CARE VITAL SIGNS MEDICATIONS Unknown Medications RESULTS Name Result Date Reference Range LITHIUM (ESKALITH(R)), SERUM 2016-10-22 [place] (Eskalith(R)), Serum 0.8 0.6-1.2 TSH W/ FREE T4 2016-10-22 TSH 1.810 0.450-4.500 T4,Free(Direct) 1.16 0.82-1.77 PROCEDURES Procedure Date Ordered Result Body Site ASSAY OF LITHIUM Oct 22, 2016 ASSAY THYROID STIM HORMONE Oct 22, 2016 VENIPUNCT, ROUTINE* Oct 22, 2016 ASSAY OF FREE THYROXINE Oct 22, 2016 INSTRUCTIONS MEDICATIONS ADMINISTERED No Known Medications MEDICAL (GENERAL) HISTORY Type Description Date Medical History depression Medical History adhd Medical History bipolar Medical History hyperlipidemia Medical History Hx of heart valve dysfunction but says this has resolved Medical History lactose intolerant Hospitalization History [facility] x4, last incident at age 8
--- OUTSIDE RECORDS SUMMARY | 2017-12-14 17:22 | XMS REPORT ---
Author Author ALESHIA BERNAL [facility] Address [address] [place] [address] Care Team Providers Care Rigger Up Name Role Phone ALESHIA BERNAL Unavailable PROBLEMS Type Condition ICD9-CM Code [id number] Code Onset Dates Condition Status SNOMED Code Problem Schizoaffective disorder, bipolar type F25.0 Active 59341726 Problem Anxiety F41.9 Active 86447138 Problem Attention deficit hyperactivity disorder (ADHD), predominantly inattentive type F90.0 Active 64086506 Problem Impulse disorder, unspecified F63.9 Active 81230758 Problem ADD (attention deficit disorder) F90.0 Active 235179355 Problem Hypercholesterolemia with hyperglyceridemia E78.2 Active 001982176 Problem Bipolar disorder, current episode mixed, unspecified F31.60 Active 40024981 ALLERGIES No Information SOCIAL HISTORY Never Assessed PLAN OF CARE VITAL SIGNS MEDICATIONS Unknown Medications RESULTS No Results PROCEDURES No Known procedures IMMUNIZATIONS No Known Immunizations MEDICAL (GENERAL) HISTORY Type Description Date Medical History depression Medical History adhd Medical History bipolar Medical History hyperlipidemia Medical History Hx of heart valve dysfunction but says this has resolved Hospitalization History [facility] x4, last incident at age 8
--- OUTSIDE RECORDS SUMMARY | 2017-12-14 17:22 | XMS REPORT ---
Author ALESHIA Aviles [facility] eClinical[employer] Address Unknown Phone Unavailable Care Team Providers Care Residence Manager Name Role Phone ALESHIA BERNAL CP Unavailable Allergies No Known Allergies Problems Problem Type Condition Code Onset Dates Condition Status Problem ADD (attention deficit disorder) F90.0 Active Problem Impulse control disorder, unspecified 312.30 Active Problem Schizoaffective disorder, bipolar type F25.0 Active Problem Bipolar I disorder, most recent episode (or current) mixed, unspecified 296.60 Active Assessment ADD (attention deficit disorder) F90.0 Active Medications Medication Code System Code Instructions Start Date End Date Status Dosage Vyvanse [facility] [id number] 30 MG Orally Once a day qAM for ADHD Take for 30 days then start Vyvanse 40 mg June 26, 2014 1 capsule Results No Known Results Summary Purpose eClinicalWorks Submission
--- OUTSIDE RECORDS SUMMARY | 2017-12-14 17:22 | XMS REPORT ---
Author CHIN Good Organization [employer] Address Unknown Phone Unavailable Care Team Providers Care Pest Control Technician Name Role Phone CHIN CALZADA CP Unavailable [...] Instructions Start Date End Date Status Dosage [place] Carbonate [facility] [address]-32 300 MG Orally Once a day with dinner 3 capsules Results No Known Results Summary Purpose eClinicalWorks Submission
--- OUTSIDE RECORDS SUMMARY | 2017-12-14 17:22 | XMS REPORT ---
Author ALESHIA Aviles [facility] eClinicalWorks Address Unknown Phone Unavailable Care Team Providers Care Central Office Technician Name Role Phone ALESHIA BERNAL CP Unavailable [...] Start Date End Date Status Dosage Vyvanse [facility] [address]-28 30 MG Orally Once a day June 26, 2014 1 capsule Results No Known Results Summary Purpose eClinicalWorks Submission
--- OUTSIDE RECORDS SUMMARY | 2017-12-14 17:23 | XMS REPORT | Continuity of Care Document ---
Author Author [facility] Address Unknown Phone Unavailable Allergies Active Description Code Type Severity Reaction Onset Reported/Identified Relationship to Patient Clinical Status Yes Cipro Drug Allergy 09/10/2010 Yes Cipro Drug Allergy N/A N/A 09/10/2010 Medications There is no data. Problems Date Dx Coded Attending Type Code Diagnosis Diagnosed By 12/23/2009 296.80 MO BIPOLAR NOS 12/23/2009 314.01 ADHD COMBINED 12/23/2009 LAVINIA HUERTA DO 296.80 MO BIPOLAR NOS 12/23/2009 LAVINIA HUERTA DO 314.01 ADHD COMBINED 12/23/2009 296.80 MO BIPOLAR NOS 12/23/2009 314.01 ADHD COMBINED 12/23/2009 LAVINIA HUERTA DO 296.80 MO BIPOLAR NOS 12/23/2009 LAVINIA HUERTA DO 314.01 ADHD COMBINED 12/23/2009 LAVINIA HUERTA DO 296.80 MO BIPOLAR NOS 12/23/2009 LAVINIA HUERTA DO 314.01 ADHD COMBINED 12/23/2009 ALESHIA BERNAL MD 296.80 MO BIPOLAR NOS 12/23/2009 ALESHIA BERNAL MD 314.01 ADHD COMBINED 12/23/2009 LAVINIA HUERTA DO 296.80 MO BIPOLAR NOS 12/23/2009 LAVINIA HUERTA DO 314.01 ADHD COMBINED 12/23/2009 CHIN CALZADA JR 296.80 MO BIPOLAR NOS 12/23/2009 CHIN CALZADA JR 314.01 ADHD COMBINED 12/23/2009 ALESHIA BERNAL MD 296.80 MO BIPOLAR NOS 12/23/2009 ALESHIA BERNAL MD 314.01 ADHD COMBINED 12/23/2009 CHIN CALZADA JR 296.80 MO BIPOLAR NOS 12/23/2009 CHIN CALZADA JR 314.01 ADHD COMBINED 12/23/2009 CHIN CALZADA JR 296.80 MO BIPOLAR NOS 12/23/2009 CHIN CALZADA JR 314.01 ADHD COMBINED 12/23/2009 CALZADA JR, CHIN S 296.80 MO BIPOLAR NOS 12/23/2009 ZHENG ANTHONY, CHIN S 314.01 ADHD COMBINED 12/23/2009 ZHENG ANTHONY, CHIN S 296.80 MO BIPOLAR NOS 12/23/2009 ZHENG ANTHONY, CHIN S 314.01 ADHD COMBINED 12/23/2009 CALZADA JR, CHIN S 296.80 MO BIPOLAR NOS 12/23/2009 ZHENG ANTHONY, CHIN S 314.01 ADHD COMBINED 12/23/2009 SHADE PHD, BRIANA Jane 296.80 MO BIPOLAR NOS 12/23/2009 SHADE PHD, BRIANA Jane 314.01 ADHD COMBINED 12/23/2009 SHADE PHD, BRIANA Jane 296.80 MO BIPOLAR NOS 12/23/2009 SHADE PHD, BRIANA Jane 314.01 ADHD COMBINED 12/23/2009 ZHENG ANTHONY, CHIN S 296.80 MO BIPOLAR NOS 12/23/2009 ZHENG ANTHONY, CHIN S 314.01 ADHD COMBINED 12/23/2009 ZHENG ANTHONY, CHIN S 296.80 MO BIPOLAR NOS 12/23/2009 ZHENG ANTHONY, CHIN S 314.01 ADHD COMBINED 12/23/2009 ZHENG ANTHONY, CHIN S 296.80 MO BIPOLAR NOS 12/23/2009 ZHENG ANTHONY, CHIN S 314.01 ADHD COMBINED 12/23/2009 ZHENG ANTHONY, CHIN S 296.80 MO BIPOLAR NOS 12/23/2009 ZHENG ANTHONY, CHIN S 314.01 ADHD COMBINED 05/30/2010 V58.69 MEDICATION HIGH RISK 05/30/2010 LAVINIA HUERTA DO V58.69 MEDICATION HIGH RISK 05/30/2010 V58.69 MEDICATION HIGH RISK 05/30/2010 LAVINIA HUERTA DO V58.69 MEDICATION HIGH RISK 05/30/2010 ALVINIA HUERTA DO V58.69 MEDICATION HIGH RISK 05/30/2010 ALESHIA BERNAL MD V58.69 MEDICATION HIGH RISK 05/30/2010 LAVINIA HUERTA DO V58.69 MEDICATION HIGH RISK 05/30/2010 CHIN CALZADA JR V58.69 MEDICATION HIGH RISK 05/30/2010 ALESHIA BERNAL MD V58.69 MEDICATION HIGH RISK 05/30/2010 CHIN CALZADA JR V58.69 MEDICATION HIGH RISK 05/30/2010 CHIN CALZADA JR V58.69 MEDICATION HIGH RISK 05/30/2010 CHIN CALZADA JR V58.69 MEDICATION HIGH RISK 05/30/2010 CHIN CALZADA JR V58.69 MEDICATION HIGH RISK 05/30/2010 CHIN CALZADA JR S V58.69 MEDICATION HIGH RISK 05/30/2010 SHADE PHD, BRIANA Jane V58.69 MEDICATION HIGH RISK 05/30/2010 SHADE FOY, BRIANA Jane V58.69 MEDICATION HIGH RISK 05/30/2010 CHIN CALZADA JR S V58.69 MEDICATION HIGH RISK 05/30/2010 CHIN CALZADA JR S V58.69 MEDICATION HIGH RISK 05/30/2010 CHIN CALZADA JR S V58.69 MEDICATION HIGH RISK 05/30/2010 CHIN CALZADA JR S V58.69 MEDICATION HIGH RISK 01/28/2011 296.90 MOOD DISORDER NOS 01/28/2011 LAVINIA HUERAT DO F 296.90 MOOD DISORDER NOS 01/28/2011 296.90 MOOD DISORDER NOS 01/28/2011 LAVINIA HUERTA DO F 296.90 MOOD DISORDER NOS 01/28/2011 LAVINIA HUERTA DO F 296.90 MOOD DISORDER NOS 01/28/2011 ALESHIA BERNAL MD 296.90 MOOD DISORDER NOS 01/28/2011 LAVINIA HUERTA DO F 296.90 MOOD DISORDER NOS 01/28/2011 CHIN CALZADA JR S 296.90 MOOD DISORDER NOS 01/28/2011 ALESHIA BERNAL MD 296.90 MOOD DISORDER NOS 01/28/2011 CHIN CALZADA JR S 296.90 MOOD DISORDER NOS 01/28/2011 CHIN CALZADA JR S 296.90 MOOD DISORDER NOS 01/28/2011 CHIN CALZADA JR S 296.90 MOOD DISORDER NOS 01/28/2011 CHIN CALZADA JR S 296.90 MOOD DISORDER NOS 01/28/2011 CHIN CALZADA JR S 296.90 MOOD DISORDER NOS 01/28/2011 BRIANA LAGUERRE PHD 296.90 MOOD DISORDER NOS 01/28/2011 BRIANA LAGUERRE PHD 296.90 MOOD DISORDER NOS 01/28/2011 CHIN CALZADA JR S 296.90 MOOD DISORDER NOS 01/28/2011 CHIN CALZADA JR S 296.90 MOOD DISORDER NOS 01/28/2011 CHIN CALZADA JR S 296.90 MOOD DISORDER NOS 01/28/2011 CHIN CALZADA JR S 296.90 MOOD DISORDER NOS 01/30/2011 314.9 CD ADHD UNSPECIFIED HYPERKINETIC SYNDROME 01/30/2011 LAVINIA HUERTA DO F 314.9 CD ADHD UNSPECIFIED HYPERKINETIC SYNDROME 01/30/2011 314.9 CD ADHD UNSPECIFIED HYPERKINETIC SYNDROME 01/30/2011 LAVINIA HUERTA DO F 314.9 CD ADHD UNSPECIFIED HYPERKINETIC SYNDROME 01/30/2011 LAVINIA HUERTA DO F 314.9 CD ADHD UNSPECIFIED HYPERKINETIC SYNDROME 01/30/2011 ALESHIA BERNAL MD 314.9 CD ADHD UNSPECIFIED HYPERKINETIC SYNDROME 01/30/2011 LAVINIA HUERTA DO F 314.9 CD ADHD UNSPECIFIED HYPERKINETIC SYNDROME 01/30/2011 CHIN CALZADA JR 314.9 CD ADHD UNSPECIFIED HYPERKINETIC SYNDROME 01/30/2011 ALESHIA BERNAL MD 314.9 CD ADHD UNSPECIFIED HYPERKINETIC SYNDROME 01/30/2011 CHIN CALZADA JR 314.9 CD ADHD UNSPECIFIED HYPERKINETIC SYNDROME 01/30/2011 CHIN CALZADA JR 314.9 CD ADHD UNSPECIFIED HYPERKINETIC SYNDROME 01/30/2011 CHIN CALZADA JR 314.9 CD ADHD UNSPECIFIED HYPERKINETIC SYNDROME 01/30/2011 CHIN CALZADA JR 314.9 CD ADHD UNSPECIFIED HYPERKINETIC SYNDROME 01/30/2011 CHIN CALZADA JR 314.9 CD ADHD UNSPECIFIED HYPERKINETIC SYNDROME 01/30/2011 BRIANA LAGUERRE PHD 314.9 CD ADHD UNSPECIFIED HYPERKINETIC SYNDROME 01/30/2011 BRIANA LAGUERRE PHD 314.9 CD ADHD UNSPECIFIED HYPERKINETIC SYNDROME 01/30/2011 CHIN CALZADA JR 314.9 CD ADHD UNSPECIFIED HYPERKINETIC SYNDROME 01/30/2011 CHIN CALZADA JR 314.9 CD ADHD UNSPECIFIED HYPERKINETIC SYNDROME 01/30/2011 CHIN CALZADA JR 314.9 CD ADHD UNSPECIFIED HYPERKINETIC SYNDROME 01/30/2011 CHIN CALZADA JR S 314.9 CD ADHD UNSPECIFIED HYPERKINETIC SYNDROME 02/09/2011 314.00 ADHD INATTENTIVE 02/09/2011 LAVINIA HUERTA DO F 314.00 ADHD INATTENTIVE 02/09/2011 314.00 ADHD INATTENTIVE 02/09/2011 LAVINIA HUERTA DO F 314.00 ADHD INATTENTIVE 02/09/2011 LAVINIA HUERTA DO F 314.00 ADHD INATTENTIVE 02/09/2011 ALESHIA BERNAL MD 314.00 ADHD INATTENTIVE 02/09/2011 LAVINIA HUERTA DO F 314.00 ADHD INATTENTIVE 02/09/2011 CHIN CALZADA JR 314.00 ADHD INATTENTIVE 02/09/2011 ALESHIA BERNAL MD 314.00 ADHD INATTENTIVE 02/09/2011 ZHENG ANTHONY, CHIN S 314.00 ADHD INATTENTIVE 02/09/2011 ZHENG ANTHONY, CHIN S 314.00 ADHD INATTENTIVE 02/09/2011 ZHENG ANTHONY, CHIN S 314.00 ADHD INATTENTIVE 02/09/2011 ZHENG ANTHONY, CHIN S 314.00 ADHD INATTENTIVE 02/09/2011 ZHENG ANTHONY, CHIN S 314.00 ADHD INATTENTIVE 02/09/2011 SHADE FOY, BRIANA Jane 314.00 ADHD INATTENTIVE 02/09/2011 SHADE FOY, BRIANA Jane 314.00 ADHD INATTENTIVE 02/09/2011 ZHENG ANTHONY, CHIN S 314.00 ADHD INATTENTIVE 02/09/2011 ZHENG ANTHONY, CHIN S 314.00 ADHD INATTENTIVE 02/09/2011 ZHENG ANTHONY, CHIN S 314.00 ADHD INATTENTIVE 02/09/2011 ZHENG ANTHONY, CHIN S 314.00 ADHD INATTENTIVE 12/16/2011 296.60 MO BIPOLAR I MIXED UNSPECIFIED 12/16/2011 LAVINIA HUERTA DO F 296.60 MO BIPOLAR I MIXED UNSPECIFIED 12/16/2011 296.60 MO BIPOLAR I MIXED UNSPECIFIED 12/16/2011 LAVINIA HUERTA DO F 296.60 MO BIPOLAR I MIXED UNSPECIFIED 12/16/2011 LAVINIA HUERTA DO F 296.60 MO BIPOLAR I MIXED UNSPECIFIED 12/16/2011 ALESHIA BERNAL MD 296.60 MO BIPOLAR I MIXED UNSPECIFIED 12/16/2011 LAVINIA HUERTA DO F 296.60 MO BIPOLAR I MIXED UNSPECIFIED 12/16/2011 CHIN CALZADA JR S 296.60 MO BIPOLAR I MIXED UNSPECIFIED 12/16/2011 ALESHIA BENRAL MD 296.60 MO BIPOLAR I MIXED UNSPECIFIED 12/16/2011 CHIN CALZADA JR S 296.60 MO BIPOLAR I MIXED UNSPECIFIED 12/16/2011 CHIN CALZADA JR S 296.60 MO BIPOLAR I MIXED UNSPECIFIED 12/16/2011 CHIN CALZADA JR S 296.60 MO BIPOLAR I MIXED UNSPECIFIED 12/16/2011 CHIN CALZADA JR S 296.60 MO BIPOLAR I MIXED UNSPECIFIED 12/16/2011 CHIN CALZADA JR S 296.60 MO BIPOLAR I MIXED UNSPECIFIED 12/16/2011 SHADE FOY, BRIANA Jane 296.60 MO BIPOLAR I MIXED UNSPECIFIED 12/16/2011 SHADE FOY, BRIANA Jane 296.60 MO BIPOLAR I MIXED UNSPECIFIED 12/16/2011 CHIN CALZADA JR S 296.60 MO BIPOLAR I MIXED UNSPECIFIED 12/16/2011 CHIN CALZADA JR S 296.60 MO BIPOLAR I MIXED UNSPECIFIED 12/16/2011 CHIN CALZADA JR S 296.60 MO BIPOLAR I MIXED UNSPECIFIED 12/16/2011 CHIN CALZADA JR S 296.60 MO BIPOLAR I MIXED UNSPECIFIED 05/02/2012 298.9 P PSYCHOSIS NOS 05/02/2012 300.00 AN ANXIETY UNSPEC 05/02/2012 307.47 SI DYSSOMNIA NOS 05/02/2012 312.30 I IMPULSE CONTROL DISORDER NOS 05/02/2012 WERDER DO, LAVINIA F 298.9 P PSYCHOSIS NOS 05/02/2012 WERDER DO, LAVINIA F 300.00 AN ANXIETY UNSPEC 05/02/2012 WERDER DO, LAVINIA F 307.47 SI DYSSOMNIA NOS 05/02/2012 WERDER DO, LAVINIA F 312.30 I IMPULSE CONTROL DISORDER NOS 05/02/2012 WERDER DO, LAVINIA F 298.9 P PSYCHOSIS NOS 05/02/2012 WERDER DO, LAVINIA F 300.00 AN ANXIETY UNSPEC 05/02/2012 WERDER DO, LAVINIA F 307.47 SI DYSSOMNIA NOS 05/02/2012 WERDER DO, LAVINIA F 312.30 I IMPULSE CONTROL DISORDER NOS 05/02/2012 ALESHIA BERNAL MD 298.9 P PSYCHOSIS NOS 05/02/2012 ALESHIA BERNAL MD 300.00 AN ANXIETY UNSPEC 05/02/2012 ALESHIA BERNAL MD 307.47 SI DYSSOMNIA NOS 05/02/2012 ALESHIA BERNAL MD 312.30 I IMPULSE CONTROL DISORDER NOS 05/02/2012 CHIN CALZADA JR S 298.9 P PSYCHOSIS NOS 05/02/2012 CHIN CALZADA JR 300.00 AN ANXIETY UNSPEC 05/02/2012 CHIN CALZADA JR 307.47 SI DYSSOMNIA NOS 05/02/2012 CHIN CALZADA JR 312.30 I IMPULSE CONTROL DISORDER NOS 05/02/2012 ALESHIA BERNAL MD 298.9 P PSYCHOSIS NOS 05/02/2012 ALESHIA BERNAL MD 300.00 AN ANXIETY UNSPEC 05/02/2012 ALESHIA BERNAL MD 307.47 SI DYSSOMNIA NOS 05/02/2012 ALESHIA BERNAL MD 312.30 I IMPULSE CONTROL DISORDER NOS 05/02/2012 CHIN CALZADA JR 298.9 P PSYCHOSIS NOS 05/02/2012 ZHENG ANTHONY CHIN S 300.00 AN ANXIETY UNSPEC 05/02/2012 ZHENG ANTHONY CHIN S 307.47 SI DYSSOMNIA NOS 05/02/2012 CHIN CALZADA JR S 312.30 I IMPULSE CONTROL DISORDER NOS 05/02/2012 ZHENG ANTHONY CHIN S 298.9 P PSYCHOSIS NOS 05/02/2012 ZHENG ANTHONY CHIN S 300.00 AN ANXIETY UNSPEC 05/02/2012 HCIN CALZADA JR S 307.47 SI DYSSOMNIA NOS 05/02/2012 ZHENG ANTHONY CHIN S 312.30 I IMPULSE CONTROL DISORDER NOS 05/02/2012 ZHENG ANTHONY CHIN S 298.9 P PSYCHOSIS NOS 05/02/2012 ZEHNG ANTHONY CHIN S 300.00 AN ANXIETY UNSPEC 05/02/2012 CHIN CALZADA JR S 307.47 SI DYSSOMNIA NOS 05/02/2012 ZHENG ANTHONY CHIN S 312.30 I IMPULSE CONTROL DISORDER NOS 05/02/2012 CHIN CALZADA JR S 298.9 P PSYCHOSIS NOS 05/02/2012 CHIN CALZADA JR S 300.00 AN ANXIETY UNSPEC 05/02/2012 CHIN CALZADA JR S 307.47 SI DYSSOMNIA NOS 05/02/2012 CHIN CALZADA JR S 312.30 I IMPULSE CONTROL DISORDER NOS 05/02/2012 CHIN CALZADA JR S 298.9 P PSYCHOSIS NOS 05/02/2012 CHIN CALZADA JR S 300.00 AN ANXIETY UNSPEC 05/02/2012 CHIN CALZADA JR S 307.47 SI DYSSOMNIA NOS 05/02/2012 CHIN CALZADA JR S 312.30 I IMPULSE CONTROL DISORDER NOS 05/02/2012 BRIANA LAGUERRE PHD 298.9 P PSYCHOSIS NOS 05/02/2012 BRIANA LAGUERRE PHD 300.00 AN ANXIETY UNSPEC 05/02/2012 RBIANA LAGUERRE PHD 307.47 SI DYSSOMNIA NOS 05/02/2012 BRIANA LAGUERRE PHD 312.30 I IMPULSE CONTROL DISORDER NOS 05/02/2012 BRIANA LAGUERRE PHD 298.9 P PSYCHOSIS NOS 05/02/2012 BRIANA LAGUERRE PHD 300.00 AN ANXIETY UNSPEC 05/02/2012 BRIANA LAGUERRE PHD 307.47 SI DYSSOMNIA NOS 05/02/2012 BRIANA LAGUERRE PHD 312.30 I IMPULSE CONTROL DISORDER NOS 05/02/2012 CHIN CALZADA JR S 298.9 P PSYCHOSIS NOS 05/02/2012 CALZADA JR, CHIN S 300.00 AN ANXIETY UNSPEC 05/02/2012 ZHENG ANTHONY CHIN S 307.47 SI DYSSOMNIA NOS 05/02/2012 ZHENG ANTHONY CHIN S 312.30 I IMPULSE CONTROL DISORDER NOS 05/02/2012 ZHENG ANTHONY CHIN S 298.9 P PSYCHOSIS NOS 05/02/2012 CALZADA , CHIN S 300.00 AN ANXIETY UNSPEC 05/02/2012 ZHENG ANTHONY CHIN S 307.47 SI DYSSOMNIA NOS 05/02/2012 ZHENG ANTHONY CHIN S 312.30 I IMPULSE CONTROL DISORDER NOS 05/02/2012 ZHENG ANTHONY CHIN S 298.9 P PSYCHOSIS NOS 05/02/2012 ZHENG ANTHONY CHIN S 300.00 AN ANXIETY UNSPEC 05/02/2012 ZHENG ANTHONY CHIN S 307.47 SI DYSSOMNIA NOS 05/02/2012 ZHENG ANTHONY CHIN S 312.30 I IMPULSE CONTROL DISORDER NOS 05/02/2012 ZHENG ANTHONY CHIN S 298.9 P PSYCHOSIS NOS 05/02/2012 ZHENG ANTHONY CHIN S 300.00 AN ANXIETY UNSPEC 05/02/2012 ZHENG ANTHONY CHIN S 307.47 SI DYSSOMNIA NOS 05/02/2012 ZHENG ANTHONY CHIN S 312.30 I IMPULSE CONTROL DISORDER NOS 01/19/2013 ALESHIA BERNAL MD 295.70 P SCHIZO AFFECTIVE 01/19/2013 CHIN CALZADA JR S 295.70 P SCHIZO AFFECTIVE 01/19/2013 ALESHIA BERNAL MD 295.70 P SCHIZO AFFECTIVE 01/19/2013 CHIN CALZADA JR S 295.70 P SCHIZO AFFECTIVE 01/19/2013 CHIN CALZADA JR S 295.70 P SCHIZO AFFECTIVE 01/19/2013 CHIN CALZADA JR S 295.70 P SCHIZO AFFECTIVE 01/19/2013 CHIN CALZADA JR S 295.70 P SCHIZO AFFECTIVE 01/19/2013 CHIN CALZADA JR S 295.70 P SCHIZO AFFECTIVE 01/19/2013 SHADE PHD, BRIANA Jane 295.70 P SCHIZO AFFECTIVE 01/19/2013 SHADE PHD, BRIANA Jane 295.70 P SCHIZO AFFECTIVE 01/19/2013 CHIN CALZADA JR S 295.70 P SCHIZO AFFECTIVE 01/19/2013 CHIN CALZADA JR S 295.70 P SCHIZO AFFECTIVE 01/19/2013 CHIN CALZADA JR S 295.70 P SCHIZO AFFECTIVE 01/19/2013 CHIN CALZADA JR S 295.70 P SCHIZO AFFECTIVE Procedures Code Description [place] [address] ROUTINE VENIPUNCTURE 02/02/2012 94559 LIVER PANEL (LFT) 02/02/2012 12691 LIPID PANEL 02/02/20120680974 GFR CALC (RESULT ONLY) 02/02/2012 79570 CBC 02/02/2012 20280 LITHIUM 02/03/2012 66529 RENAL PROFILE 02/03/2012 01985 TSH 02/03/2012 47445 ROUTINE VENIPUNCTURE 05/02/2012 00847 UA W/ CULTURE IF INDICATED 05/02/2012 50877 CREATININE 05/02/20122307369 GFR CALC (RESULT ONLY) 05/02/2012 03294 LITHIUM 05/02/2012 44867 ROUTINE VENIPUNCTURE 02/24/2013 37002 UA LONG DIP 02/24/2013 47803 CBC 02/24/2013 87213 LITHIUM 02/24/20136332159 GFR CALC (RESULT ONLY) 02/24/2013 41796 CMP 02/24/2013 77563 PSYCH DIAGNOSTIC EVALUATION 10/20/2013 80892 PSYTX PT&/FAMILY 30 MINUTES 01/09/2014 Results Test Result Range LITHIUM (ESKALITH(R)), SERUM - 11/23/14 11:46 [place] (Eskalith(R)), Serum 0.6 mmol/L 0.6-1.4 CBC With Differential/Platelet - 07/16/16 10:44 WBC 5.3 x10E3/uL 3.4-10.8 RBC 5.17 x10E6/uL 4.14-5.80 Hemoglobin 15.0 g/dL 12.6-17.7 Hematocrit 44.9 % 37.5-51.0 MCV 87 fL 79-97 MCH 29.0 pg 26.6-33.0 MCHC 33.4 g/dL 31.5-35.7 RDW 13.2 % 12.3-15.4 Platelets 245 x10E3/uL 150-379 Neutrophils 62 % Lymphs 27 % Monocytes 9 % Eos 2 % Basos 0 % Neutrophils (Absolute) 3.3 x10E3/uL 1.4-7.0 Lymphs (Absolute) 1.4 x10E3/uL 0.7-3.1 Monocytes(Absolute) 0.5 x10E3/uL 0.1-0.9 Eos (Absolute) 0.1 x10E3/uL 0.0-0.4 Baso (Absolute) 0.0 x10E3/uL 0.0-0.2 Immature Granulocytes 0 % Immature Grans (Abs) 0.0 x10E3/uL 0.0-0.1 Comp. Metabolic Panel (14) - 07/16/16 10:44 Glucose, Serum 89 mg/dL 65-99 BUN 16 mg/dL 6-20 Creatinine, Serum 0.86 mg/dL 0.76-1.27 eGFR If NonAfricn Am 122 mL/min/1.73 >59 eGFR If Africn Am 141 mL/min/1.73 >59 BUN/Creatinine Ratio 19 9-20 Sodium, Serum 141 mmol/L 134-144 Potassium, Serum 4.7 mmol/L 3.5-5.2 Chloride, Serum 103 mmol/L 96-106 Carbon Dioxide, Total 24 mmol/L 18-29 Calcium, Serum 9.7 mg/dL 8.7-10.2 Protein, Total, Serum 6.9 g/dL 6.0-8.5 Albumin, Serum 4.6 g/dL 3.5-5.5 Globulin, Total 2.3 g/dL 1.5-4.5 A/G Ratio 2.0 1.2-2.2 Bilirubin, Total 0.3 mg/dL 0.0-1.2 Alkaline Phosphatase, S 85 IU/L 39-117 AST (SGOT) 22 IU/L 0-40 ALT (SGPT) 21 IU/L 0-44 Lipid Panel - 07/16/16 10:44 Cholesterol, Total 194 mg/dL 100-199 Triglycerides 154 mg/dL 0-149 HDL Cholesterol 39 mg/dL >39 VLDL Cholesterol Kush 31 mg/dL 5-40 LDL Cholesterol Calc 124 mg/dL 0-99 TSH W/ FREE T4 - 10/22/16 13:33 TSH 1.810 uIU/mL 0.450-4.500 T4,Free(Direct) 1.16 ng/dL 0.82-1.77 TSH+Free T4 - 10/22/16 13:33 TSH 1.810 uIU/mL 0.450-4.500 T4,Free(Direct) 1.16 ng/dL 0.82-1.77 [place] (Eskalith(R)), Serum - 10/22/16 13:33 [place] (Eskalith(R)), Serum 0.8 mmol/L 0.6-1.2 Encounters ACCT No. Visit Date/Time Discharge Status Pt. Type Provider Facility Loc./Unit Complaint [id number] 04/09/2014 13:29:00 04/09/2014 23:59:59 CLS Outpatient ZHENG ANTHONY CHIN Daya [id number] 2014 12:42:00 2014 23:59:59 CLS Outpatient CHIN CALZADA JR [id number] 01/16/2014 12:29:00 01/16/2014 23:59:59 CLS Outpatient CHIN CALZADA JR [id number] 01/15/2014 13:11:00 01/15/2014 23:59:59 CLS Outpatient CHIN CALZADA JR [id number] 01/09/2014 16:12:00 01/09/2014 23:59:59 CLS Outpatient BRIANA LAGUERRE PHD [id number] 10/20/2013 09:56:00 10/20/2013 23:59:59 CLS Outpatient BRIANA LAGUERRE PHD [id number] 09/18/2013 14:29:00 09/18/2013 23:59:59 CLS Outpatient CHIN CALZADA JR [id number] 09/18/2013 14:29:00 09/18/2013 23:59:59 CLS Outpatient CHIN CALZADA JR [id number] 08/14/2013 14:32:00 08/14/2013 23:59:59 CLS Outpatient CHIN CALZADA JR [id number] 07/17/2013 13:02:00 07/17/2013 23:59:59 CLS Outpatient CHIN CALZADA JR [id number] 06/01/2013 00:00:00 06/01/2013 23:59:59 CLS Outpatient CHIN CALZADA JR [id number] 04/20/2013 08:06:00 04/20/2013 23:59:59 CLS Outpatient ALESHIA BERNAL MD [id number] 01/19/2013 10:06:00 01/19/2013 23:59:59 CLS Outpatient CHIN CALZADA JR [id number] 01/19/2013 10:06:00 01/19/2013 23:59:59 CLS Outpatient ALESHIA BERNAL MD [id number] 11/02/2012 14:40:00 11/02/2012 23:59:59 CLS Outpatient LAVINIA HUERTA DO [id number] 05/02/2012 13:47:00 05/02/2012 23:59:59 CLS Outpatient DEANNA ALEMAN LAVINIA Debra [id number] 05/02/2012 13:47:00 05/02/2012 23:59:59 CLS Outpatient [id number] 02/02/2012 10:38:00 02/02/2012 23:59:59 CLS Outpatient DEANNA ALEMAN LAVINIA Debra [id number] 12/16/2011 15:31:00 12/16/2011 23:59:59 CLS Outpatient LAVINIA HUERTA DO [id number] 12/16/2011 15:31:00 12/16/2011 23:59:59 CLS Outpatient [id number] 10/18/2013 10:17:00 10/18/2013 23:59:59 CLS Outpatient [id number] 06/11/2017 15:00:00 06/11/2017 23:59:59 CLS Outpatient MAKENZIE ANILA [facility] [id number] 10/22/2016 13:40:00 Document Registration [id number] 11/23/2014 11:30:00 Document Registration [id number] 07/17/2016 08:06:00 Document Registration [id number] 10/23/2016 08:07:00 Document Registration
--- OUTSIDE RECORDS SUMMARY | 2017-12-14 17:23 | XMS REPORT ---
Author Author ALISA Escamilla [facility] Address [address] [place] [address] Care Team Providers Care Practice Clinician Name Role Phone ALISA Escamilla Unavailable PROBLEMS Type Condition ICD9-CM Code GPF06-ME Code Onset Dates Condition Status SNOMED Code Problem Schizoaffective disorder, bipolar type F25.0 Active 51259940 Problem ADD (attention deficit disorder) F90.0 Active 753831204 Problem Social anxiety disorder F40.10 Active 38533442 Problem Attention deficit hyperactivity disorder (ADHD), predominantly inattentive type F90.0 Active 07434008 Problem Impulse disorder, unspecified F63.9 Active 24151203 Problem Hypercholesterolemia with hyperglyceridemia E78.2 Active 201613675 Problem Anxiety F41.9 Active 46593414 Problem Bipolar disorder, current episode mixed, unspecified F31.60 Active 95175831 ALLERGIES No Information SOCIAL HISTORY Never Assessed PLAN OF CARE VITAL SIGNS MEDICATIONS Unknown Medications RESULTS No Results PROCEDURES No Known procedures IMMUNIZATIONS No Known Immunizations MEDICAL (GENERAL) HISTORY Type Description Date Medical History depression Medical History adhd Medical History bipolar Medical History hyperlipidemia Medical History Hx of heart valve dysfunction but says this has resolved Medical History lactose intolerant Hospitalization History [facility] x4, last incident at age 8
--- OUTSIDE RECORDS SUMMARY | 2017-12-14 17:23 | XMS REPORT ---
Author CHIN Good [facility] eClinical[employer] Address Unknown Phone Unavailable Care Team Providers Care Punch Card Operator Name Role Phone CHIN CALZADA CP Unavailable Allergies No Known Allergies Problems Problem Type Condition Code Onset Dates Condition Status Problem Anxiety state, unspecified 300.00 Active Problem Unspecified psychosis 298.9 Active Problem Schizoaffective disorder, unspecified 295.70 Active Problem Bipolar I disorder, most recent episode (or current) mixed, unspecified 296.60 Active Assessment Encounter for long-term (current) use of other medications Z79.899 Active Problem Impulse control disorder, unspecified 312.30 Active Problem Other dysfunctions of sleep stages or arousal from sleep 307.47 Active Medications No Known Medications Procedures Procedure Coding System Code Date VENIPUNCT, ROUTINE* CPT-4 56321 Nov 23, 2014 ASSAY OF LITHIUM CPT-4 02825 Nov 23, 2014 Results No Known Results Summary Purpose eClinicalWorks Submission
[2017-12-14 17:41] LABS: BASOPHILS % (AUTO) 0 % (0-10); EOSINOPHILS # (AUTO) 0.1 10^3/uL (0.0-0.3); EOSINOPHILS % (AUTO) 1 % (0-10); HEMATOCRIT 43 % (40-54); HEMOGLOBIN 15.1 G/DL (13.3-17.7); LYMPHOCYTES # (AUTO) 1.7 X 10^3 (1.0-4.0); LYMPHOCYTES % (AUTO) 23 % (12-44); MEAN CORPUSCULAR HEMOGLOBIN 29 PG (25-34); MEAN CORPUSCULAR HGB CONC 35 G/DL (32-36); MEAN CORPUSCULAR VOLUME 81 FL (80-99); MEAN PLATELET VOLUME 9.7 FL (7.4-10.4); MONOCYTES # (AUTO) 0.6 X 10^3 (0.0-1.0); MONOCYTES % (AUTO) 8 % (0-12); NEUTROPHILS # (AUTO) 4.9 X 10^3 (1.8-7.8); NEUTROPHILS % (AUTO) 68 % (42-75); PLATELET COUNT 247 10^3/uL (130-400); RED BLOOD COUNT 5.26 10^6/uL (4.35-5.85); RED CELL DISTRIBUTION WIDTH 12.3 % (10.0-14.5); WHITE BLOOD COUNT 7.3 10^3/uL (4.3-11.0)
[2017-12-14 17:58] LABS: ALANINE AMINOTRANSFERASE 49 U/L (0-55); ALBUMIN 4.6 GM/DL (3.2-4.5); ALKALINE PHOSPHATASE 90 U/L (40-136); BILIRUBIN,TOTAL 0.3 MG/DL (0.1-1.0); BUN/CREATININE RATIO 16; CALCIUM 9.5 MG/DL (8.5-10.1); CARBON DIOXIDE 23 MMOL/L (21-32); CHLORIDE 108 MMOL/L (98-107); GFR ESTIMATED > 60; GLUCOSE 95 MG/DL (70-105); POTASSIUM 3.8 MMOL/L (3.6-5.0); SODIUM 139 MMOL/L (135-145); TOTAL PROTEIN 7.4 GM/DL (6.4-8.2)
[2017-12-14] MEDS ORDERED: DIPH1TAB PO (18:15)
--- NOTE | 2017-12-14 18:15 | ED GU-Male ---
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 FELT LIKE HE WAS GOING T PASS OUT AFTER. CALLED 911 FOR EMS BUT REFUSED TRANSPORT AFTER ARRIVAL History of Present Illness Date Seen by Provider: Dec 14, 2017 Time Seen by Provider: 17:25 Initial Comments 22-year-old male reports diarrhea for 3-4 days. Just prior to arrival he reports a significant passage of stool and noted bright red blood mixed in. He denies previous history of rectal bleeding or hemorrhoids. Upon rising from the toilet angelesng had a syncopal episode. The symptoms have since improved. Timing/Duration: this afternoon Location: other (rectal) Radiation: none Activities at Onset: other (diarrhea) Prior Genitourinary Problems: none Associated Symptoms: No abdominal pain, No diaphoresis, No dysuria, No fever/ chills, No loss of bladder control, No lower back pain, No lumps, No mass, No nausea/vomiting, No nocturia, No polyuria, No swelling; syncope; No urinary frequency Allergies and Home Medications Allergies Coded Allergies: ciprofloxacin (Verified Allergy, Unknown, 12/14/17) Uncoded Allergies: ADHD MEDS (Allergy, Unknown, 12/14/17) Home Medications Diphenoxylate HCl/Atropine 1 Each Tablet, 1 EACH PO Q6H Prescribed by: AYDEN DANIELSON on 12/14/171814 Patient Home Medication List Home Medication List Reviewed: Yes Review of Systems Review of Systems Constitutional: no symptoms reported, see HPI Gastrointestinal: see HPI, diarrhea, melena All Other Systemes Reviewed Negative Unless Noted: Yes Past Cyrzaou-Nhqhqx-Bticoo Hx Patient Social History Alcohol Use: Denies Use Recreational Drug Use: No Smoking Status: Never a Smoker Recent Foreign Travel: No Contact w/Someone Who Travel: No Recent Infectious Disease Expo: No Past Medical History Surgeries: No Respiratory: No Cardiac: No Neurological: No Genitourinary: No Musculoskeletal: No Endocrine: No Integumentary: No Physical Exam Vital Signs Vital Signs - First Documented 12/14/17 12/14/17 17:17 18:26 Temp 98.9 Pulse 71 Resp 18 B/P (MAP) 126/88 (101) Pulse Ox 98 O2 Delivery Room Air Capillary Refill : Less Than 3 Seconds Height, Weight, BMI Height: 5'4.00" Weight: 175lbs. oz. 79.296167fl; BMI Method:Stated General Appearance: WD/WN, no apparent distress HEENT: PERRL/EOMI, normal ENT inspection, TMs normal, pharynx normal Neck: non-tender, full range of motion, supple, normal inspection Cardiovascular: normal peripheral pulses, regular rate, rhythm Respiratory: chest non-tender Gastrointestinal: normal bowel sounds, non tender; No distended, No guarding, No rebound, No tenderness Rectal: normal exam, normal rectal tone; No hemorrhoids, No tenderness; other ( no stool present for testing) Neurologic/Psychiatric: no motor/sensory deficits, alert, normal mood/affect, oriented x 3 Skin: normal color, warm/dry Progress/Results/Core Measures Suspected Sepsis Recent Fever Within 48 Hours: No Infection Criteria Present: None New/Unexplained Altered Menta: No Sepsis Screen: No Definite Risk SIRS Temperature:98.9 Pulse: 71 Respiratory Rate: 18 Laboratory Tests 12/14/17 17:36: White Blood Count 7.3 Blood Pressure 126 /88 Mean: 101 Laboratory Tests 12/14/17 17:36: Creatinine 0.90, Platelet Count 247, Total Bilirubin 0.3 Results/Orders Lab Results Laboratory Tests Test 12/14/17 17:36 Range/Units White Blood Count 7.3 4.3-11.0 10^3/uL Red Blood Count 5.26 4.35-5.85 10^6/uL Hemoglobin 15.1 13.3-17.7 G/DL Hematocrit 43 40-54 % Mean Corpuscular Volume 81 80-99 FL Mean Corpuscular Hemoglobin 29 25-34 PG Mean Corpuscular Hemoglobin Concent 35 32-36 G/DL Red Cell Distribution Width 12.3 10.0-14.5 % Platelet Count 247 130-400 10^3/uL Mean Platelet Volume 9.7 7.4-10.4 FL Neutrophils (%) (Auto) 68 42-75 % Lymphocytes (%) (Auto) 23 12-44 % Monocytes (%) (Auto) 8 0-12 % Eosinophils (%) (Auto) 1 0-10 % Basophils (%) (Auto) 0 0-10 % Neutrophils # (Auto) 4.9 1.8-7.8 X 10^3 Lymphocytes # (Auto) 1.7 1.0-4.0 X 10^3 Monocytes # (Auto) 0.6 0.0-1.0 X 10^3 Eosinophils # (Auto) 0.1 0.0-0.3 10^3/uL Basophils # (Auto) 0.0 0.0-0.1 10^3/uL Sodium Level 139 135-145 MMOL/L Potassium Level 3.8 3.6-5.0 MMOL/L Chloride Level 108 H 98-107 MMOL/L Carbon Dioxide Level 23 21-32 MMOL/L Anion Gap 8 5-14 MMOL/L Blood Urea Nitrogen 14 7-18 MG/DL Creatinine 0.90 0.60-1.30 MG/DL Estimat Glomerular Filtration Rate > 60 BUN/Creatinine Ratio 16 Glucose Level 95 70-105 MG/DL Calcium Level 9.5 8.5-10.1 MG/DL Corrected Calcium 8.5-10.1 MG/DL Total Bilirubin 0.3 0.1-1.0 MG/DL Aspartate Amino Transf (AST/SGOT) 29 5-34 U/L Alanine Aminotransferase (ALT/SGPT) 49 0-55 U/L Alkaline Phosphatase 90 40-136 U/L Total Protein 7.4 6.4-8.2 GM/DL Albumin 4.6 H 3.2-4.5 GM/DL My Orders Orders - AYDEN DANIELSON Cbc With Automated Diff (12/14/17 17:21) Comprehensive Metabolic Panel (12/14/17 17:21) Vital Signs/I&O 12/14/17 12/14/17 17:17 18:26 Temp 98.9 Pulse 71 85 Resp 18 18 B/P (MAP) 126/88 (101) 127/83 (98) Pulse Ox 98 O2 Delivery Room Air Capillary Refill : Less Than 3 Seconds Blood Pressure Mean: 101 Departure Impression Primary Impression: Diarrhea Qualified Codes: R19.7 - Diarrhea, unspecified Additional Impression: Bloody stool Disposition: 01 HOME, SELF-CARE Condition: Improved Departure-Patient Inst. Decision time for Depature: 16:00 Referrals: CHITO BROOKS MD (PCP) Primary Care Physician Patient Instructions: Bloody Stools, Adult (DC) Add. Discharge Instructions: Clear liquid diet for the next 4-6 hours. (pedialyte and sprite encouraged) Take the Lomotil as needed for diarrhea. Follow-up at [facility] if continued rectal bleeding. Return to emergency department for new, urgent health care problems. All discharge instructions reviewed with patient and/or family. Voiced understanding. Scripts Diphenoxylate HCl/Atropine (Lomotil 2.5-0.025 mg Tablet) 1 Each Tablet 1 EACH PO Q6H, #6 TAB 0 Refills Prov: AYDEN DANIELSON 12/14/17 AYDEN DANIELSON Dec 14, 2017 18:15
[2017-12-14 18:26] VITALS: BP 127/83
== END 2017-12-14 18:26 | disposition home or self-care (01) ==
LOC: EDUNIT# 17:11 → ER 17:13
DX: K92.1 Melena (principal); Z88.1 Allergy status to other antibiotic agents; Z88.8 Allergy status to other drugs, medicaments and biological substances
CPT/HCPCS: 36415; 80053; 85025